=== PATIENT | female | born 1975 | race Caucasian/White ===

== ENCOUNTER → 2017-04-08 12:08 | Outpatient (CLI) | payer MEDICARE, MEDICAID, SELFPAY ==
[2017-04-08 13:33] LABS: AST(SGOT) 18 U/L (15-37); Alanine Aminotransfer ALT/SGPT 24 U/L (13-56); Albumin, Serum 3.8 g/dL (3.2-5.0); Alkaline Phosphatase 76 U/L (45-117); Cholesterol 209 mg/dL (200); High Density Lipoprotein 55 mg/dL; Protein, Total 7.8 g/dL (6.4-8.2); Triglycerides 100 mg/dL; Very Low Density Lipoprotein 20 mg/dL (5-40)
== END ==
PROVIDERS: Family Provider Physician Assistant; PCP Physician Assistant; Visit Provider Internal Medicine Cardiovascular Disease
DX: I10 Essential (primary) hypertension (principal); E78.00 Pure hypercholesterolemia, unspecified; E66.9 Obesity, unspecified; R07.9 Chest pain, unspecified
CPT/HCPCS: 36415; 80061; 80076

== ENCOUNTER → 2017-04-23 20:00 | Outpatient (CLI) | payer MEDICARE, MEDICAID, SELFPAY | PROVIDERS: Family Provider Physician Assistant; PCP Physician Assistant; Visit Provider Internal Medicine Cardiovascular Disease | DX: G47.10 Hypersomnia, unspecified (principal) | CPT/HCPCS: 95810 ==

== ENCOUNTER → 2017-04-24 12:38 | Outpatient (CLI) | payer MEDICARE, MEDICAID, SELFPAY ==
--- NOTE | 2017-04-24 12:40 | ECHOD_ITS ---
Reason For Study: DYSPNEA Procedure This was a 2D Doppler, Color Flow transthoracic echocardiogram. Exam performed in department. Left Ventricle Normal size and thickness. The estimated ejection fraction is 65 %. Normal diastology for age. No regional wall motion abnormalities noted. Right Ventricle Mildly dilated right ventricle. Normal systolic function. Atria Normal left atrium. Normal right atrium. Normal atrial septum. Mitral Valve The mitral valve is structurally normal. No prolapse or stenosis seen. Tricuspid Valve Normal tricuspid valve. Trivial tricuspid valve insufficiency. Right ventricular systolic pressure estimated to be 21 mmHg. Aortic Valve Normal aortic valve. Trisinus/trileaflet aortic valve. Pulmonic Valve Normal pulmonic valve. Trivial pulmonic valve insufficiency. Great Vessels Normal aortic root. Normal arch. Normal inferior vena cava. Inferior vena cava collapse with sniff. Pericardium/Pleural No pericardial effusion. MMode/2D Measurements & Calculations LVIDd: 4.0 cm IVSd: 0.82 cm Ao root diam: 3.0 cm LVIDs: 2.9 cm LVPWd: 0.83 cm LA dimension: 3.4 cm RVDd: 2.9 cm FS: 28.0 % LAV(MOD-bp): 42.1 ml EDV(MOD-sp4): 126.9 ml EDV(MOD-sp2): 92.0 ml LAV(MOD-bp) Indexed: 19.1 ml/m2 ESV(MOD-sp4): 54.1 ml EF(MOD-sp2): 65.2 % LAV(MOD-sp2): 45.0 ml EF(MOD-sp4): 57.3 % LAV(MOD-sp4): 38.2 ml SV(MOD-sp4): 72.8 ml SV(MOD-sp2): 60.0 ml LA A4 area: 15.3 cm2 RA A4 area: 11.0 cm2 Doppler Measurements & Calculations MV E max chaim: 73.2 cm/sec Ao V2 max: 123.0 cm/sec LV V1 max: 117.5 cm/sec MV A max chaim: 62.8 cm/sec Ao max P.1 mmHg LV V1 max P.5 mmHg MV E/A: 1.2 PA V2 max: 135.6 cm/sec Interpretation Summary The estimated ejection fraction is 65 %. Normal diastology for age. Mildly dilated right ventricle. Trivial tricuspid valve insufficiency. Right ventricular systolic pressure estimated to be 21 mmHg. There is no comparison study available. Ordering Physician: Killian Garza Referring Physician: CYNTHIA MCDONALD Performed By: Antonina Vazquez RDCS, RVT
== END ==
PROVIDERS: Family Provider Physician Assistant; PCP Physician Assistant; Visit Provider Internal Medicine Cardiovascular Disease
DX: R06.89 Other abnormalities of breathing (principal)
CPT/HCPCS: 93306

== ENCOUNTER → 2017-05-23 12:07 | Outpatient (CLI) | payer MEDICARE, MEDICAID, SELFPAY ==
--- NOTE | 2017-05-23 12:08 | STE_ITS ---
Reason For Study: Chest Pain, Dyspnea on Exertion Stress Results Protocol: Man Protocol Maximum Predicted HR: 179 bpm Target HR: 152 bpm% Max imum Predicted HR: 85 % DurationHeart Rate Stage (mm:ss) (bpm) BPCom ment Baseline 55 118/72 No Chest Pain Man Protocol Stage I 3:00 11 7 142/70No Chest Pain; Mild Dyspnea Man Protocol Stage II 3:00 13 4 162/76No Chest Pain; Moderate Dyspnea Man Protocol Stage III 1:00 15 3 / No Chest Pain; Moderate Dyspnea Recovery 82 122/80 No Chest Pain Stress Duration: 7:00 mm:ss Maximum Stress HR: 153 bpmM ETS: 10 Baseline Echocardiogram Findings The estimated ejection fraction is 65 %. Stress Echo Wall motion Data Resting WMIntermediate WMStress WM Resting Wall Motion Wall Motion Stress No regional wall motion No regional wall motion abnormalities noted. abnormalities noted. EKG Data Normal intervals are noted. The patient exercised according to the regular Man protocol for a total duration of 7:00. The maximum heart rate attained was 155 beats per minute. This was 86% of maximum predicted heart rate. The patient exercised into stage 3 of the Man protocol. During stress, there were no ST or T wave changes noted to suggest ischemia. No clinical angina was noted. Interpretation Summary The estimated ejection fraction is 65 %. Normal adequate treadmill echocardiogram. Negative for ischemia by EKG and echocardiographic criteria. No anginal symptoms noted. Rare PVCs noted. Appropriate blood pressure response to exercise. Average exercise capacity for age. Test terminated due to dyspnea. Final LVEF of 75%. Ordering Physician: Killian Garza Referring Physician: Killian Garza Performed By: Fernanda Canchola RDCS
== END ==
PROVIDERS: Family Provider Physician Assistant; PCP Physician Assistant; Visit Provider Internal Medicine Cardiovascular Disease
DX: R53.83 Other fatigue (principal); R06.89 Other abnormalities of breathing; G47.10 Hypersomnia, unspecified; R06.09 Other forms of dyspnea; R07.9 Chest pain, unspecified; Z95.818 Presence of other cardiac implants and grafts; E66.9 Obesity, unspecified; E78.00 Pure hypercholesterolemia, unspecified; R55 Syncope and collapse; J45.909 Unspecified asthma, uncomplicated; I10 Essential (primary) hypertension
CPT/HCPCS: 93017; 93350

== ENCOUNTER → 2017-05-26 19:45 | Outpatient (CLI) | payer MEDICARE, MEDICAID, SELFPAY | PROVIDERS: Family Provider Physician Assistant; PCP Physician Assistant; Visit Provider Nurse Practitioner Acute Care | DX: G47.33 Obstructive sleep apnea (adult) (pediatric) (principal) | CPT/HCPCS: 95811 ==

== ENCOUNTER → 2017-06-18 12:35 | Outpatient (CLI) | payer MEDICARE, MEDICAID, SELFPAY ==
--- NOTE | 2017-06-19 08:28 | PFT ---
INTRODUCTION: The patient is a 41-year-old female currently under the care of myself the presents for pulmonary function testing secondary to a diagnosis of dyspnea. Respiratory therapy reports good patient effort. Bronchodilators were used during testing. INTERPRETATION: Forced expiration spirometry demonstrates no evidence of a large airways obstructive ventilatory defect. There was no significant response to aerosolized bronchodilators, based upon strict ATS criteria. Spirograms are of good quality and plateau normally. The respiratory flow volume loop appears normal. Body plethysmography was performed and reveals a decreased TLC to 5.04 L, 86% predicted, indicative of a mild restrictive ventilatory defect. The remainder of the lung volumes were symmetrically reduced. Diffusing capacity by single breath CO is within normal limits at 81% of predicted. IMPRESSION: These pulmonary function studies demonstrate the presence of a mild restrictive ventilatory defect. There are no previous pulmonary function studies available for comparison.
== END ==
PROVIDERS: Family Provider Physician Assistant; PCP Physician Assistant; Visit Provider Nurse Practitioner Acute Care
DX: R06.09 Other forms of dyspnea (principal)
CPT/HCPCS: 94060; 94726; 94729

== ENCOUNTER → 2017-10-09 10:45 | Outpatient (CLI) | payer MEDICARE, MEDICAID, SELFPAY ==
[2017-10-09 11:16] LABS: Hematocrit 38.2 % (37-47); Hemoglobin 12.7 g/dl (12.0-15.0); Mean Corp Hgb Conc 33.2 g/gl (32-36); Mean Corpuscular Hgb 29.1 pg (27.0-32.0); Mean Corpuscular Volume 87.6 fL (81-99); Mean Platelet Vol. 10.7 fl (6.2-12.0); Platelet Count 236 K/mm3 (150-450); RBC Distribution Width CV 13.6 % (11.6-14.6); RBC Distribution Width SD 42.8 fl (35.1-43.9); Red Blood Count 4.36 M/mm3 (4.2-5.4); White Blood Count 6.5 K/mm3 (4.4-11.0)
[2017-10-09 11:17] LABS: Scan Indicated on CBC? Y/N NO
[2017-10-09 11:40] LABS: Anion Gap 7 (5-15); BUN 10 mg/dL (7-18); BUN/Creat Ratio 9.3 RATIO (10-20); Calcium,Total 8.9 mg/dL (8.5-10.1); Chloride 107 mmol/L (98-107); Creatinine, Serum 1.07 mg/dL (0.55-1.02); EST Glomerular Filtration Rate 60 mL/min (>60); Est Glom Filt Rate - Afr Amer 72 mL/min (>60); Glucose 99 mg/dL (74-106); Potassium 4.2 mmol/L (3.5-5.1); Sodium Level 142 mmol/L (136-145)
[2017-10-09 11:42] LABS: AST(SGOT) 15 U/L (15-37); Alanine Aminotransfer ALT/SGPT 18 U/L (13-56); Albumin, Serum 3.9 g/dL (3.2-5.0); Alkaline Phosphatase 64 U/L (45-117); Bilirubin, Direct 0.09 mg/dL (0.00-0.30); Cholesterol 214 mg/dL (200); Globulin 4.1 g/dL (2.2-4.2); High Density Lipoprotein 46 mg/dL; Triglycerides 115 mg/dL; Very Low Density Lipoprotein 23 mg/dL (5-40)
== END ==
PROVIDERS: Internal Medicine Cardiovascular Disease; Family Provider Physician Assistant; PCP Physician Assistant; Visit Provider Physician Assistant Medical
DX: R06.09 Other forms of dyspnea (principal); I10 Essential (primary) hypertension; E78.00 Pure hypercholesterolemia, unspecified; R55 Syncope and collapse; R07.9 Chest pain, unspecified; G47.33 Obstructive sleep apnea (adult) (pediatric); Z95.818 Presence of other cardiac implants and grafts
CPT/HCPCS: 36415; 80048; 80061; 80076; 85027

== ENCOUNTER 2017-10-24 09:16 | Day surgery (SDC) | payer MEDICARE, MEDICAID, SELFPAY ==
[2017-10-23 08:16] VITALS: BMI 36.0
--- NOTE | 2017-10-24 10:46 | CL.IE_ITS ---
Patient: SKY MUSA Study Date: 10/24/2017 Performing: Raciel Perez MD : 1975 Age: 42 Gender: female PROCEDURES PERFORMED [id number] OF LOOP RECORDER INDICATIONS End-of-life indicator PROCEDURE DETAILS The patient was brought to the Catheterization Lab in the postabsorptive nonsedated state. Informed consent was obtained prior to the procedure. Incision was made to the left subclavicular area. Steri- strips applied to left subclavicular incision. The patient tolerated the procedure well. Estimated Blood Loss: < 10 mls IMPLANTED / EX-PLANTED DEVICES DEVICE PARAMETERS CONCLUSIONS / RECOMMENDATIONS Device Conclusions: successful removal of loop recorder Device Recommendations: Follow up with Primary Care Physician PROCEDURE MEDICATIONS Versed 1 mg IV Oxygen: 2 L/min via nasal cannula Signed By Raciel Perez MD On 10/24/2017 10:50:09 Signed By Raciel Perez MD On 10/24/2017 10:46:19 Raciel Perez MD
== END 2017-10-24 11:45 | disposition home or self-care (01) ==
PROVIDERS: Family Provider Physician Assistant; PCP Physician Assistant; Visit Provider Internal Medicine Cardiovascular Disease
DX: Z45.09 Encounter for adjustment and management of other cardiac device (principal); R07.9 Chest pain, unspecified; I10 Essential (primary) hypertension; R55 Syncope and collapse; E78.00 Pure hypercholesterolemia, unspecified; E66.9 Obesity, unspecified; Z68.36 Body mass index [BMI] 36.0-36.9, adult; J45.909 Unspecified asthma, uncomplicated; F32.9 Major depressive disorder, single episode, unspecified; K21.9 Gastro-esophageal reflux disease without esophagitis; G40.909 Epilepsy, unspecified, not intractable, without status epilepticus; Z79.899 Other long term (current) drug therapy
CPT/HCPCS: 33284; 99152; 99153; A4216

== ENCOUNTER → 2018-03-02 14:21 | Outpatient (CLI) | payer MEDICARE, MEDICAID, SELFPAY ==
[2018-02-23 13:12] VITALS: BMI 35.4
[2018-03-02 16:07] LABS: AST(SGOT) 20 U/L (15-37); Alanine Aminotransfer ALT/SGPT 24 U/L (13-56); Albumin, Serum 3.9 g/dL (3.2-5.0); Alkaline Phosphatase 57 U/L (45-117); Bilirubin, Direct 0.12 mg/dL (0.00-0.30); Cholesterol 166 mg/dL (200); Globulin 3.6 g/dL (2.2-4.2); High Density Lipoprotein 60 mg/dL; Protein, Total 7.5 g/dL (6.4-8.2); Triglycerides 100 mg/dL; Very Low Density Lipoprotein 20 mg/dL (5-40)
--- OUTSIDE RECORDS SUMMARY | 2018-05-05 02:35 | XMS RPT_ITS ---
:1975 Author Organization OHIP Support Name Relationship Address Phone D Unavailable Unavailable Unavailable SOURS, SACHI Unavailable [address] + [place] [address] D Unavailable Unavailable Unavailable SOURS, SACHI Unavailable [address] + [place] [address] D Unavailable Unavailable Unavailable SOURS, SACHI Unavailable [address] + [place] [address] D Unavailable Unavailable Unavailable SOURS, SACHI Unavailable [address] + [place] [address] D Unavailable Unavailable Unavailable SOURS, SACHI Unavailable [address] + [place] [address] D Unavailable Unavailable Unavailable SOURS, SACHI Unavailable [address] + [place] [address] D Unavailable Unavailable Unavailable SOURS, SACHI Unavailable [address] + [place] [address] D Unavailable Unavailable Unavailable SOURS, SACHI Unavailable [address] + [place] [address] D Unavailable Unavailable Unavailable SOURS, SACHI Unavailable [address] + [place] [address] D Unavailable Unavailable Unavailable SOURS, SACHI Unavailable [address] + [place] [address] D Unavailable Unavailable Unavailable SOURS, SACHI Unavailable [address] + [place] [address] D Unavailable Unavailable Unavailable SOURS, SACHI Unavailable [address] + [place] [address] D Unavailable Unavailable Unavailable SOURS, SACHI Unavailable [address] + [place] [address] D Unavailable Unavailable Unavailable SOURS, SACHI Unavailable [address] + [place] [address] D Unavailable Unavailable Unavailable SOURS, SACHI Unavailable [address] + [place] [address] D Unavailable Unavailable Unavailable SOURS, SACHI Unavailable [address] + [facility] [place] [place] [place] [address] D Unavailable Unavailable Unavailable SOURS, SACHI Unavailable [address] + [place] [address] D Unavailable Unavailable Unavailable SOURS, SACHI Unavailable [address] + [place] [address] D Unavailable Unavailable Unavailable SOURS, SACHI Unavailable [address] + [place] [address] D Unavailable Unavailable Unavailable SOURS, SACHI Unavailable [address] + [place] [address] D Unavailable Unavailable Unavailable SOURS, SACHI Unavailable [address] + [place] [address] D Unavailable Unavailable Unavailable SOURS, SACHI Unavailable [address] + [place] [address] D Unavailable Unavailable Unavailable SOURS, SACHI Unavailable [address] + [place] [address] SOURS, SACHI Unavailable [address] + [place] [address] UE Unavailable Unavailable Unavailable SOURS, SACHI Unavailable [address] + [place] [address] UE Unavailable Unavailable Unavailable Care Team Providers Name Role Phone Jonel Hess Admitting Unavailable Jonel Hess Attending Unavailable Rodrigo Foster Primary Care Unavailable Elicia King Attending Unavailable Killian Garza Attending Unavailable Iron Ruiz Referring Unavailable Killian Garza Attending Unavailable Killian Garza Referring Unavailable RuizIron rodriguez Primary Care Unavailable Dionna Carter Attending Unavailable Iron Ruiz Referring Unavailable Ruiz, M Cynthia Primary Care Unavailable Killian Garza Attending Unavailable Killian Garza Referring Unavailable Ruiz, M Cynthia Primary Care Unavailable Killian Garza Attending Unavailable Killian Garza Referring Unavailable Ruiz, M Cynthia Primary Care Unavailable Killian Garza Attending Unavailable Killian Garza Referring Unavailable Ruiz, M Cynthia Primary Care Unavailable Rosie Gusman Attending Unavailable Ruiz, M Cynthia Referring Unavailable Rosie Gusman Attending Unavailable Ruiz, M Cynthia Primary Care Unavailable Killian Garza Attending Unavailable Greg, Killian Referring Unavailable Gusman, Rosie Attending Unavailable Gusman, Rosie Referring Unavailable Ruiz, M Cynthia Primary Care Unavailable Greg, Killian Attending Unavailable Garza, Killian Referring Unavailable Gusman, Rosie Attending Unavailable Ruiz, M Cynthia Referring Unavailable Ruiz, M Cynthia Primary Care Unavailable Daniel Young D.O. Attending Unavailable Gusman, Rosie Referring Unavailable Man Joy Attending Unavailable Ruiz, M Cynthia Referring Unavailable Ruiz, M Cynthia Primary Care Unavailable Dionna Carter Attending Unavailable Ruiz, M Cynthia Referring Unavailable Ruiz, M Cynthia Primary Care Unavailable GoldenJyoti Attending Unavailable Ruiz, M Cynthia Referring Unavailable Ruiz, M Cynthia Primary Care Unavailable GoldenJyoti murray M Attending Unavailable GoldenJyoti M Referring Unavailable Ruiz, M Cynthia Primary Care Unavailable Chris, Ivesdale Attending Unavailable Chris, Ivesdale Referring Unavailable Ruiz, M Cynthia Primary Care Unavailable Elicia King Attending Unavailable Chris, Ivesdale Attending Unavailable Chris, Ivesdale Referring Unavailable Gusman, Rosie Attending Unavailable Ruiz, M Cynthia Referring Unavailable Gusman, Rosie Attending Unavailable Ruiz, M Cynthia Referring Unavailable Garza, Killian Attending Unavailable Ruiz, M Cynthia Referring Unavailable Garza, Killian Attending Unavailable Garza, Killian Referring Unavailable Ruiz, M Cynthia Primary Care Unavailable RUIZ, Iron MARIE (PA-C) Attending Unavailable RUIZIron (PA-C) Referring Unavailable RUIZ, Iron MARIE (PA-C) Referring Unavailable LATASHA KOROMA (PT) Attending Unavailable RUIZ, Iron MARIE (PA-C) Referring Unavailable LATASHA KOROMA (PT) Attending Unavailable RUIZ, Iron MARIE (PA-C) Referring Unavailable RODRIGO LOPEZ Referring Unavailable RUIZ, Iron MARIE (PA-C) Referring Unavailable JERROD MORSE Attending Unavailable RUIZ, Iron MARIE (PA-C) Attending Unavailable RUIZ, Iron MARIE (PA-C) Referring Unavailable RONALD MORSEISTIN Attending Unavailable PROBLEMS PROBLEMS DATE TYPE CONDITION / CODE ATTENDING STATUS SOURCE 02/23/2018 Unknown R07.9 - Chest pain, Killian Garza Active [facility] unspecified / Community R07.9(ICD-10) Hospital Repository 02/23/2018 Unknown E66.9 - Obesity, Killian Garza Active [facility] unspecified / Community E66.9(ICD-10) Hospital Repository 02/23/2018 Unknown E78.00 - Pure GarzaKillian Active [facility] hypercholesterolemi Community a, unspecified / Hospital E78.00(ICD-10) Repository 02/23/2018 Unknown G47.33 - Garza Killian Active [facility] Obstructive sleep Community apnea (adult) Hospital (pediatric) / Repository G47.33(ICD-10) 01/07/2018 Active Encounter for NA Active [facility] screening mammogram [facility] for malignant Repository neoplasm of breast / Z12.31(ICD-10) 11/20/2017 Unknown R55 - Syncope and Chris, Raciel Active [facility] collapse / Community R55(ICD-10) Hospital Repository 10/09/2017 Unknown R06.09 - Other Chantel, Active [facility] forms of dyspnea / [facility] R06.09(ICD-10) Hospital Repository 10/09/2017 Unknown I10 - Essential Golden, Active [facility] (primary) [facility] hypertension / Hospital I10(ICD-10) Repository 10/10/2017 Unknown Z95.818 - Presence Emma Dionna Active [facility] of other cardiac Community implants and grafts Hospital / Z95.818(ICD-10) Repository 04/23/2017 Unknown G47.10 - Killian Garza Active [facility] Hypersomnia, Community unspecified / Hospital G47.10(ICD-10) Repository 04/08/2017 Unknown R06.89 - Other Killian Garza Active [facility] abnormalities of Community breathing / Hospital R06.89(ICD-10) Repository 04/08/2017 Unknown R53.83 - Other Killian Garza Active [facility] fatigue / Community R53.83(ICD-10) Hospital Repository 04/08/2017 Unknown R40.0 - Somnolence Killian Garza Active [facility] / R40.0(ICD-10) Community Hospital Repository 04/08/2017 Unknown J45.909 - Killian Garza Active [facility] Unspecified asthma, Community uncomplicated / Hospital J45.909(ICD-10) Repository 03/18/2017 Active Chest pain, NA Active [facility] unspecified / [facility] R07.9(ICD-10) Repository 04/08/2017 Active Essential (primary) NA Active [facility] hypertension / [facility] I10(ICD-10) Repository 08/05/2016 Active Gastro-esophageal NA Active [facility] reflux disease [facility] without esophagitis Repository / K21.9(ICD-10) 03/10/2017 Active Unknown / Iron RUIZ Active [facility] UNK(Unknown) CYNTHIA (PA-C) [facility] Repository PROCEDURES PROCEDURES No Procedure Records FoundRESULTS RESULTS PROGRESS Observed: 03/05/2018 Status: COMPLETED Source: [place] 8:36 AM [facility] REPOSITORY HNO ID: [id number] Author: Jerrod Morse Service: (none) Author Type: Physician Type: Progress Notes Filed: 03/05/2018 8:54 AM Note Text: Neurology Follow-up Visit ASSESSMENT: 42 year old female with history significant for asthma, anxiety, concussion, with post-traumatic migraines. Currently reporting 7-10 migraines per month but does not want additional preventive therapy at this time. Briefly discussed Aimovig and she does not like needles. Will continue current regimen. PLAN: --->?Acute Treatment:? -Imitrex, Zofran. ?? --->?Preventive Treatment:? -continue Neurontin, propranolol, Zonegran ? --->?Follow-up: 6 months Last Visit: 04/22/2017 Interval Hx: Headaches have been ok lately. This month so far has had 3 migraines. Averages 7-10 headaches per month. Imitrex is effective. Doesn't want to add anything. with more heart troubles. Has multiple stents. NGHIA, using CPAP at night. Needs to lose weight because her lungs are on the small side. No syncopal episodes. Loop recorder has been removed, battery . PMH: PAST MEDICAL HISTORY Diagnosis Date - Asthma - Depression Dez in [place] Dr. Clark, Counselor Adina - Headaches due to old head injury - NGHIA (obstructive sleep apnea) 05/12/2017 - Seizures ([facility]) Neurologist Dr. 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 Social History Main Topics Smoking status: Former Smoker Packs/day: 0.00 Years: 2.00 Smokeless tobacco: Never Used Comment: A couple cigarettes a day for two years Alcohol use: No Drug use: No Sexual activity: Yes Partners with: Male control/protection: None FMH: FAMILY HISTORY Problem Relation Age of Onset - other (lupus [Other]) Maternal Uncle - other (unknown [Other]) Father - other (htn [Other]) Mother - other (hyperlipidemia [Other]) Mother - Cancer Maternal Aunt HEEL STIFFENER - other (lung cancer [Other]) Maternal Uncle - Coronary Artery Disease Maternal Grandmother - Coronary Artery Disease Maternal Grandfather - Coronary Artery Disease Paternal Grandmother - Coronary Artery Disease Paternal Grandfather - Diabetes Brother - Hypertension Brother - Cancer Unknown - Cancer Maternal Uncle bone MEDS: Current Outpatient Prescriptions: Promethazine-DM (PHENERGAN-DM) 6.25-15 mg/5 mL syrup Take 5 mL by mouth four times daily as needed. busPIRone (BUSPAR) 10 mg tablet Take 1 tablet by mouth three times daily. fluticasone (FLOVENT HFA) 220 mcg/actuation inhaler Inhale 1 Puff as instructed twice daily. omeprazole (PRILOSEC) 20 mg capsule Take 2 capsules by mouth daily before breakfast. 1/2 hr before meal. propranolol ER (INDERAL LA) 60 mg 24 hr capsule Take 1 capsule by mouth once daily. gabapentin (NEURONTIN) 300 mg capsule Take 3 capsules by mouth twice daily. sertraline (ZOLOFT) 100 mg tablet Take 1 tablet by mouth once daily. cloNIDine HCl (CATAPRES) 0.1 mg tablet Take 1 tablet by mouth twice daily. For headaches albuterol HFA (VENTOLIN HFA) 90 mcg/actuation inhaler Inhale 2 Puffs as instructed every 4 hours as needed. SUMAtriptan (IMITREX) 100 mg tablet Take 1 tablet by mouth as needed for Migraine Headache (see administration instructions). ondansetron (ZOFRAN) 8 mg tablet Take 1 tablet by mouth every 8 hours as needed for Nausea/Vomiting. zonisamide (ZONEGRAN) 50 mg capsule TAKE 1 CAPSULE IN THE MORNING AND 2 CAPSULES AT BEDTIME No current facility-administered medications for this visit. REVIEW OF SYSTEMS: Review of system : unchanged from the previous visit or as per HPI (sleep patterns, mood, energy, appetite, stress, exercising). Physical Examination: BP 143/80 (BP Site: Left Arm, BP Position: Sitting, BP Cuff Size: Large Adult) Pulse 90 Ht 172.7 cm (5' 8) Wt 107 kg (236 lb) LMP 11/26/2012 SpO2 100% BMI 35.88 kg/m? GEN: Alert. NAD. Normal affect. Cooperative. HEENT: No rhinorrhea, lacrimation or conjunctival injection. Normal mucosa. NECK/BACK: Supple EXT: No cyanosis. No edema. No erythema. NEUROLOGICAL: MENTAL STATUS: A+O x 3. Attentive. Thought process and content unremarkable. Follows commands appropriately. Speech fluent. CN: II: PERRLA. III, IV, : EOMI. No ptosis present. VII: Face symmetric. VIII: No nystagmus. XI: Symmetric shoulder shrug. XII: Tongue midline with symmetric movements. MOTOR: Normal tone. Normal bulk. Motor strength 5/5 throughout. CEREBELLAR: No ataxia or nystagmus. GAIT: Stable primary gait. Jerrod Morse M.D. [facility] [place] Department [facility] cc: SELF M Cynthia Ruiz PA-C [address] [facility] [place] [address] CNOV Observed: 03/05/2018 Status: COMPLETED Source: [place] 8:10 AM [facility] REPOSITORY Office Visit (NEURMM) SKY MUSA ([id number]) 1975 F Date Time Provider Department 03/05/18 8:10 AM JERROD MORSE During your visit today, we recorded the following information about you: Pulse Blood pressure Weight Height 90/minute 143/80 107 kg 1.727 m Jerrod Morse MD 03/05/2018 8:54 AM Signed Neurology Follow-up Visit ASSESSMENT: 42 year old female with history significant for asthma, anxiety, concussion, with post-traumatic migraines. Currently reporting 7-10 migraines per month but does not want additional preventive therapy at this time. Briefly discussed Aimovig and she does not like needles. Will continue current regimen. PLAN: --->?Acute Treatment:? -Imitrex, Zofran. ?? --->?Preventive Treatment:? -continue Neurontin, propranolol, Zonegran ? --->?Follow-up: 6 months Last Visit: 04/22/2017 Interval Hx: Headaches have been ok lately. This month so far has had 3 migraines. Averages 7-10 headaches per month. Imitrex is effective. Doesn't want to add anything. with more heart troubles. Has multiple stents. NGHIA, using CPAP at night. Needs to lose weight because her lungs are on the small side. No syncopal episodes. Loop recorder has been removed, battery . PMH: PAST MEDICAL HISTORY Diagnosis Date - Asthma - Depression Dez in [place] Dr. Clark, Counselor Adina - Headaches due to old head injury - NGHIA (obstructive sleep apnea) 05/12/2017 - Seizures ([facility]) Neurologist Dr. 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 Social History Main Topics Smoking status: Former Smoker Packs/day: 0.00 Years: 2.00 Smokeless tobacco: Never Used Comment: A couple cigarettes a day for two years Alcohol use: No Drug use: No Sexual activity: Yes Partners with: Male control/protection: None FMH: FAMILY HISTORY Problem Relation Age of Onset - other (lupus [Other]) Maternal Uncle - other (unknown [Other]) Father - other (htn [Other]) Mother - other (hyperlipidemia [Other]) Mother - Cancer Maternal Aunt HEEL STIFFENER - other (lung cancer [Other]) Maternal Uncle - Coronary Artery Disease Maternal Grandmother - Coronary Artery Disease Maternal Grandfather - Coronary Artery Disease Paternal Grandmother - Coronary Artery Disease Paternal Grandfather - Diabetes Brother - Hypertension Brother - Cancer Unknown - Cancer Maternal Uncle bone MEDS: Current Outpatient Prescriptions: Promethazine-DM (PHENERGAN-DM) 6.25-15 mg/5 mL syrup Take 5 mL by mouth four times daily as needed. busPIRone (BUSPAR) 10 mg tablet Take 1 tablet by mouth three times daily. fluticasone (FLOVENT HFA) 220 mcg/actuation inhaler Inhale 1 Puff as instructed twice daily. omeprazole (PRILOSEC) 20 mg capsule Take 2 capsules by mouth daily before breakfast. 1/2 hr before meal. propranolol ER (INDERAL LA) 60 mg 24 hr capsule Take 1 capsule by mouth once daily. gabapentin (NEURONTIN) 300 mg capsule Take 3 capsules by mouth twice daily. sertraline (ZOLOFT) 100 mg tablet Take 1 tablet by mouth once daily. cloNIDine HCl (CATAPRES) 0.1 mg tablet Take 1 tablet by mouth twice daily. For headaches albuterol HFA (VENTOLIN HFA) 90 mcg/actuation inhaler Inhale 2 Puffs as instructed every 4 hours as needed. SUMAtriptan (IMITREX) 100 mg tablet Take 1 tablet by mouth as needed for Migraine Headache (see administration instructions). ondansetron (ZOFRAN) 8 mg tablet Take 1 tablet by mouth every 8 hours as needed for Nausea/Vomiting. zonisamide (ZONEGRAN) 50 mg capsule TAKE 1 CAPSULE IN THE MORNING AND 2 CAPSULES AT BEDTIME No current facility-administered medications for this visit. REVIEW OF SYSTEMS: Review of system : unchanged from the previous visit or as per HPI (sleep patterns, mood, energy, appetite, stress, exercising). Physical Examination: BP 143/80 (BP Site: Left Arm, BP Position: Sitting, BP Cuff Size: Large Adult) Pulse 90 Ht 172.7 cm (5' 8) Wt 107 kg (236 lb) LMP 11/26/2012 SpO2 100% BMI 35.88 kg/m? GEN: Alert. NAD. Normal affect. Cooperative. HEENT: No rhinorrhea, lacrimation or conjunctival injection. Normal mucosa. NECK/BACK: Supple EXT: No cyanosis. No edema. No erythema. NEUROLOGICAL: MENTAL STATUS: A+O x 3. Attentive. Thought process and content unremarkable. Follows commands appropriately. Speech fluent. CN: II: PERRLA. III, IV, : EOMI. No ptosis present. VII: Face symmetric. VIII: No nystagmus. XI: Symmetric shoulder shrug. XII: Tongue midline with symmetric movements. MOTOR: Normal tone. Normal bulk. Motor strength 5/5 throughout. CEREBELLAR: No ataxia or nystagmus. GAIT: Stable primary gait. Jerrod Morse M.D. [facility] [place] Department of Neu[facility] cc: SELF M Cynthia Ruiz PA-C [address] [place] [address] Referring Provider: SELF [[id number]] Allergies As of Date: 03/05/2018 Noted Allergy Reaction LATEX 06/25/2012 2 - Rash 7 - Swelling Comments: Latex condoms, caused vaginal symptoms only PENICILLINS 06/11/2012 7 - Swelling Date Reviewed: 03/05/2018 Reviewed by: Jerrod Morse - Fully Assessed Reason for Visit: Follow Up [171] Primary Visit Diagnosis:Migraine with aura and without status migrainosus, not intractable [G43.109] Prescriptions as of 03/05/2018 Sig: PROMETHAZINE-DM 6.25 MG-15 MG* Take 5 mL by mouth four times* BUSPIRONE 10 MG TABLET Take 1 tablet by mouth three * FLUTICASONE 220 MCG/ACTUATION* Inhale 1 Puff as instructed t* OMEPRAZOLE 20 MG CAPSULE,NEDA* Take 2 capsules by mouth amy* PROPRANOLOL ER 60 MG CAPSULE,* Take 1 capsule by mouth once * GABAPENTIN 300 MG CAPSULE Take 3 capsules by mouth twic* SERTRALINE 100 MG TABLET Take 1 tablet by mouth once d* CLONIDINE HCL 0.1 MG TABLET Take 1 tablet by mouth twice * ALBUTEROL SULFATE HFA 90 MCG/* Inhale 2 Puffs as instructed * SUMATRIPTAN 100 MG TABLET Take 1 tablet by mouth as nee* ONDANSETRON HCL 8 MG TABLET Take 1 tablet by mouth every * ZONISAMIDE 50 MG CAPSULE TAKE 1 CAPSULE IN THE MORNING* Problem List As Of Date 03/05/2018 Noted Resolved Asthma [J45.909] INVALID FOR* Menorrhagia [N92.0] INVALID FOR* Dysmenorrhea [N94.6] INVALID FOR* Fibroid [D21.9] INVALID FOR* Vasovagal syncope [R55] INVALID FOR* More... Hypercholesterolemia [E78.00] INVALID FOR* Status post placement of implantable loop recor*INVALID FOR*10/28/2017 More... Chronic bilateral low back pain without sciatic*INVALID FOR* Chronic pain of left ankle [M25.572, G89.29] INVALID FOR* Gastroesophageal reflux disease [K21.9] INVALID FOR* Adjustment reaction with anxiety and depression*INVALID FOR* Migraine without aura and without status migrai*INVALID FOR* More... 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 More... Vitamin D deficiency [E55.9] Lateral epicondylitis of left elbow [M77.12] INVALID FOR* Chest pain [R07.9] INVALID FOR* More... Abnormal echocardiogram [R93.1] INVALID FOR* More... NGHIA (obstructive sleep apnea) [G47.33] INVALID FOR* More... Moderate persistent asthma with (acute) exacerb*INVALID FOR* More... Disposition: Return in about 6 months (around 09/02/2018). Follow-up and Disposition History Recorded Encounter Status:Closed by JERROD MORSE MD on 03/05/18 LIVER PROFILE Collected: 03/02/2018 Status: F Source: [place] 2:[address] [facility] REPOSITORY TYPE CODE TESTS RESULT OUT OF RANGE REFERENCE UNITS LAB L501.1500 6.4-8.2 g/dL Normal T PROT 7.5 LAB L501.1800 3.2-5.0 g/dL Normal ALB 3.9 LAB L501.1950 2.2-4.2 g/dL Normal GLOB 3.6 LAB L501.4100 15-37 U/L Normal AST 20 LAB L501.4305 45-117 U/L Normal ALK P 57 LAB L501.4405 13-56 U/L Normal ALT 24 LAB L501.4600 0.20-1.00 mg/dL Normal T BILI 0.50 LAB L501.4700 0.00-0.30 mg/dL Normal D BILI 0.12 Performed By: #### L500.3400, L500.4100 #### [facility] [address] [place], [address] LIPID PROFILE Collected: 03/02/2018 Status: F Source: [place] 2:[address] [facility] REPOSITORY TYPE CODE TESTS RESULT OUT OF RANGE REFERENCE UNITS LAB L501.4900 200 mg/dL Normal CHOL 166 Result Comment: <200 mg/dL Desirable 200-240 mg/dL Borderline >240 mg/dL High Risk LAB L501.5000 mg/dL Normal TRIG 100 Result Comment: The drugs N-Acetylcysteine and Metamizole may falsely depress this assay. Serum Triglycerides Reference Interval Normal <150 mg/dL Borderline high 150 - 199 mg/dL High 200 - 499 mg/dL Very High > or = 500 mg/dL LAB L501.6400 mg/dL Normal HDL 60 Result Comment: The drugs N-Acetylcysteine and Metamizole may falsely depress this assay. Reference Range HDL <40 mg/dL Low HDL Cholesterol HDL >or= 60 mg/dL High HDL Cholesterol LAB L501.6500 0-130 mg/dL Normal LDL 86 LAB L501.6600 5-40 mg/dL Normal VLDL 20 Performed By: #### L500.3400, L500.4100 #### [facility] [address] [place], [address] CARDIOLOGY VISIT Observed: 02/23/2018 Status: F Source: [place] REPORT 1:[address] [facility] REPOSITORY [facility] [address] [place] [address] OFFICE VISIT Date of Service: 02/23/18 MR#: [id number] Acct: [id number] Name: SKY MUSA Rep #: [id number] : 1975 Provider: Killian Garza MD Age/Sex: 42/F Location: [facility] Status: Signed HPI HPI Chief Complaint: Routine f/u Details: SKY MUSA, is a 42 F who who originally presented to the office for evaluation of atypical chest pain. She is the of 1 of my patients. She has a history of hypercholesterolemia, hypertension, nondiabetic, previous smoker who quit around 4 years ago after one half pack per day for 5 years, no alcohol, no illicit drug use. She does have a positive family history of coronary disease in her father who is still alive who had bypass surgery at age 52, mother age 53 who has some kind of heart problems, and a brother with a hole in his heart Patient struggled with multiple episodes of syncope requiring a loop recorder placement at [facility] about 4 years ago. It appears the patient has vasovagal syncope and is treated with antimigraine therapy. About 6 months ago, patient has noted atypical, sharp, pleuritic type chest pain which worsened on 03/10/17 which woke her up from a sound sleep. She sought medical attention at [facility] an EKG was performed which showed normal sinus rhythm, normal axis, normal intervals no evidence of previous myocardial infarction or acute changes. She now has chest pain on and off on a regular basis, with associated diaphoresis and shortness of breath. Her pain appears to be worse in the recumbent position, and worse with eating fatty foods. She apparently underwent an ultrasound approximately several ago which was reportedly negative per the patient for gallstones. In addition the patient is unaware whether she snores, and her falls asleep before she does. She does wake up tired, has daytime somnolence, and takes naps during the day. In addition the patient complained of worsening dyspnea on exertion, chest pain with exertion and shortness of breath. Patient is not on baby aspirin. She has not had her loop recorder interrogated in some time. 04/24/17 she underwent a 2D echo with Doppler which demonstrated an EF of 65%, and normal RVSP. In addition she underwent a stress echocardiogram on 05/23/17 which was found to be normal at a good workload. She underwent a sleep study on 04/23/17 which was found to be abnormal and had CPAP fitting on 05/26/17. PFTs were done on 06/19/17 which showed mild restrictive ventilatory defect. Since her last visit, the patient is doing rather well. She is exercising on a regular basis and losing weight. She is compliant with her medications as well as her CPAP and she feels much better. She has recently had a lower respiratory infection/bronchitis, and is recovering from that. In our office today her blood pressure is 120/60, and pulse is 68 and regular. Physical exam is as below. Lipids as of 08/02/16 showed LDL of 170 and HDL of 52. Repeat lipids are pending. EKG is as above. Intake Vital Signs02/23/18 Height 5 ft 8 in 02/23/18 Weight: 233 lb 02/23/18 Body Mass Index (BMI) 35.4 02/23/18 Blood Pressure 120/60 Intake Visit Reasons: 6 M FU Allergies latex Allergy (Verified 02/23/18 13:20) Rash Penicillins Allergy (Verified 02/23/18 13:20) Rash Medications Albuterol Inhaler [Ventolin Hfa] 1 - 2 puff INHALATION Q4H PRN PRN 12/15/12 [History Confirmed 02/17/18] busPIRone [Buspar] 5 mg PO BID 12/15/12 [History Confirmed 02/17/18] clonidine HCl 0.1 mg tablet 0.1 mg PO BID PRN 04/07/17 [History Confirmed 02/17/18] omeprazole 20 mg capsule,delayed release 20 mg PO QDAY 04/07/17 [History Confirmed 02/17/18] sertraline 100 mg tablet 100 mg PO DAILY 30 Days 04/07/17 [History Confirmed 02/17/18] melatonin 3 mg tablet 3 mg PO HS PRN 10/09/17 [History Confirmed 02/17/18] propranolol ER 120 mg capsule,24 hr,extended release 120 mg PO DAILY #90 cap 02/23/18 [Rx Confirmed 02/23/18] simvastatin 40 mg tablet 40 mg PO QPM #90 tab 02/23/18 [Rx Confirmed 02/23/18] [facility] Medical History Obesity (BMI 30-39.9) (Chronic) Hypercholesteremia (Chronic) Vasovagal syncope (Chronic) Asthma (Chronic) Hypertension (Chronic) Back pain (Chronic) Depression (Chronic) GERD (gastroesophageal reflux disease) (Chronic) 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) History of hysterectomy (Chronic) Seizure (Chronic) Status post placement of implantable loop recorder (Resolved 02/13/14) Surgical History History of (Chronic) ORIF right ankle (Chronic) loop recorder explanted (Resolved 10/24/17) Family History Mother Hypertension Brother Hypertension Diabetes Grandfather CAD (coronary artery disease) Grandmother CAD (coronary artery disease) Social History Smoking Status: Never smoker second hand exposure: Yes substance use type: does not use ROS Const Const: Negative for fatigue, weakness, body ache, fever(s), headache(s), chills, frequent falls, night sweats, daytime sleepiness, difficulty sleeping, excessive sweating, weight gain, weight loss, increased appetite, poor appetite, anorexia or other Eyes Eyes: Negative for blind spots, loss of peripheral vision, transient loss of vision, blurry vision, change in vision, double vision, floaters, tunnel vision or other ENT ENT: Negative for headache(s), dizziness, hearing loss, tinnitus, Nosebleed/epistaxis, balance problems, post nasal drip, lip swelling, tongue swelling, bleeding gums, hoarseness, neck pain, dry mouth or other Cardio Chest Pain: No Resp Respiratory: Negative for SOB with activity, SOB at rest, SOB orthopnea\SOB lying down, Coughing up blood/hemoptysis, chest congestion, pain on inspiration, snoring, stridor, wheezing, crackles, paroxysmal nocturnal dyspnea or other GI GI: Negative nausea, vomiting, heartburn, constipation, belching, bloating, cramping, vomiting blood/hematemesis, bright, red blood in stools, black,tarry stools, loose stools, Difficulty Swallowing or other : Negative for hematuria, frequent nighttime urination/ nocturia, erectile dysfunction or abnormal vaginal bleeding Musc Musc: Negative for balance problems, muscle aches/ myalgia, muscle weakness or joint pain Skin Skin: Negative redness, non-healing lesions, rash, unusual bruising, skin ulcer, wounds, jaundice or other Neuro Neuro: Negative for weakness, headache(s), frequent falls, blurry vision, double vision, dizziness, lightheadedness, near syncope, syncope, orthostatic symptoms, confusion, memory loss, restless legs, vertigo, seizures, lack of coordination or other Zack Hematologic/Lymphatic: Negative for easy bleeding, easy bruising, enlarged lymph nodes or other Endo Endo: Negative for fatigue, excessive sweating, cold intolerance, heat intolerance, flushing, increased thirst/drinking, increased hunger, hair loss, hair growth or other Psych Psych: Negative for anxiety, depression, thoughts of harming anyone, thoughts of harming yourself, visual hallucinations, panic attacks or audible hallucinations Allergy Allergy/Immunology: Negative for lip swelling, Negative for tongue swelling, Negative for rash, Negative for throat swelling, Negative for hives Cardiology Exam Const Appearance: cooperative, healthy appearing and no acute distress Nutritional Appearance: well nourished Orientation: alert, oriented x3 and oriented to person Head Head: normal to inspection, atraumatic and normocephalic Nose: external nose normal Face and Sinus: face symmetric Mouth: oral mucosae normal Eyes General: appearance normal, both eyes and all related structures Eyelids: eyelids normal Conjunctivae: conjunctivae normal Pupils: PERRL and normal by confrontation EOM: EOM intact bilaterally Neck Neck: normal visual inspection and full ROM Carotids: normal carotid upstroke Chest Chest inspection: normal inspection of the chest Auscultation: Bilateral: Clear to Auscultation Cardio Palpation: normal PMI Rate: regular rate Rhythm: regular rhythm Heart sounds: S1 normal and S2 normal GI GI: normal to inspection, no hepatosplenomegaly and bowel sounds present Neuro General: alert, oriented x3, awake, CN's II-XI intact bilaterally and moves all extremities Skin Skin: no rashes or lesions noted Extremities Pulses: Normal: Right Femoral Pulse, Left Femoral Pulse, Right Dorsalis Pedis Pulse, Left Dorsalis Pedis Pulse, Right Posterior Tibial Pulse, Left Posterior Tibial Pulse, Right Radial Pulse, Left Radial Pulse Lower Extremity Edema: None: Bilateral Psych Psychological: normal affect Assessment AND Plan 1. NGHIA (obstructive sleep apnea) G47.33 14/8 cm H2O Plan 1. Obstructive sleep apnea: The patient feels markedly better since being diagnosed with NGHIA and utilizing her BiPAP. She is compliant with this and has much better energy, and is exercising regularly to facilitate weight loss. Her blood pressure is optimized at this time. Continue clonidine and as needed melatonin at night for sleep. 2. Hypercholesteremia E78.00 Plan 2. Hyperlipidemia: Her LDL cholesterol is significantly elevated for her risk factors. She was started on simvastatin with repeat lipid profile pending. Continue Zocor for now. Preference would be for her LDL to be less than 130. 3. Return office in 6 months. This note was generated using a voice recognition system and there may be incorrect words, spelling or punctuation that were not noted when reviewing the office note prior to saving. Orders Orders: Plan Detail Other Orders Orders: Other Medications Changed: Refilled: Follow Up +6M (Greg) Coding Level of Care Code Off vis,est,level 3 Diagnoses NGHIA (obstructive sleep apnea) G47.33 Hypercholesteremia E78.00 Coding Level of Care Code Off vis,est,level 3 Diagnoses NGHIA (obstructive sleep apnea) G47.33 Hypercholesteremia E78.00 Supplemental Info Supplemental Information Labs LDL Cholesterol 145 mg/dL (0-130) H 10/09/17 HDL Cholesterol 46 mg/dL (40-) 10/09/17 Triglycerides 115 mg/dL (-199) 10/09/17 VLDL Cholesterol 23 mg/dL (5-40) 10/09/17 Diagnostics Electrocardiogram 10/09/17 Echocardiogram 04/24/17 Stress Echocardiogram 05/23/17 Pacemaker Check 10/09/17 Pulmonary Pulmonary Function Test 06/19/17 02/23/18 1349 <Electronically signed by Killian Garza MD> Date Killian Garza MD Cosigner Signature: Date (if applicable) CC: Iron Ruiz PULMONARY VISIT REPORT Observed: 02/17/2018 Status: F Source: [place] 11:[address] [facility] REPOSITORY [facility] [address] [place] [address] OFFICE VISIT Date of Service: 02/17/18 MR#: [id number] Acct: [id number] Name: SKY MUSA Rep #: [id number] : 1975 Provider: Rosie Gusman Age/Sex: 42/F Location: [facility] [place] Status: Signed Assessment AND Plan 1. NGHIA (obstructive sleep apnea) G47.33 Plan Patient is using and benefiting from Pap therapy. No indication for titration study at this time. Continue to encourage weight loss. Contact the office for any new or worsening symptoms in the meantime. Follow-up in 6 months. 2. Obesity (BMI 30-39.9) E66.9 Plan Continue to encourage weight loss. After approximately 20% weight loss she may require a titration study. 3. Mild intermittent asthma, unspecified whether complicated J45.20 Plan Stable. No need to step up therapy. No additional testing at this time. Follow-up with Dr. Joy in 6 months. Contact the office with any new or worsening symptoms in the meantime. Plan Detail Follow Up 6 Months ([facility]) HPI 6 M FU: Chief Complaint: none HPI Comments Details: This is a 42 year old F, here to follow up for sleep apnea. Current use of pressure support therapy is on average of 4.5 hours per night with current settings of 14/8 cmH2O. SKY denies any daytime somnolence, dry mouth in the morning, nocturia, snoring through the mask, morning headaches or difficulty with mask leaks. SKY reports feeling rested in the morning and is benefitting from current therapy. Compliance report was reviewed and shows 80% compliance, AHI is controlled with an average of 0.9 events per hour and leaks do not appear to be consistent issue. He only experiences shortness of breath on exertion. Denies any shortness of breath with rest or conversation. Denies any cough but states she is getting over bronchitis. Admits that there were some days that she was unable to tolerate her Pap because of the bronchitis. Denies any wheezing, chest tightness, chest pain or palpitations. Denies any fever, chills or body aches. Reports feeling more rested, denies any additional nap taking has made progress. Intake Vital Signs02/17/18 Height 5 ft 8 in 02/17/18 Weight: 231 lb Intake Visit Reasons: 6 M FU DME Vendor: MATT Accompanied by: Self Allergies latex Allergy (Verified 02/17/18 10:32) Rash Penicillins Allergy (Verified 02/17/18 10:32) Rash Medications Albuterol Inhaler [Ventolin Hfa] 1 - 2 puff INHALATION Q4H PRN PRN 12/15/12 [History Confirmed 02/17/18] busPIRone [Buspar] 5 mg PO BID 12/15/12 [History Confirmed 02/17/18] clonidine HCl 0.1 mg tablet 0.1 mg PO BID PRN 04/07/17 [History Confirmed 02/17/18] omeprazole 20 mg capsule,delayed release 20 mg PO QDAY 04/07/17 [History Confirmed 02/17/18] propranolol ER 120 mg capsule,24 hr,extended release 120 mg PO DAILY 30 Days 04/07/17 [History Confirmed 02/17/18] sertraline 100 mg tablet 100 mg PO DAILY 30 Days 04/07/17 [History Confirmed 02/17/18] melatonin 3 mg tablet 3 mg PO HS PRN 10/09/17 [History Confirmed 02/17/18] simvastatin 40 mg tablet 40 mg PO QPM #90 tab 10/10/17 [Rx Confirmed 02/17/18] [facility] Medical History Obesity (BMI 30-39.9) (Chronic) Hypercholesteremia (Chronic) Vasovagal syncope (Chronic) Asthma (Chronic) Hypertension (Chronic) Back pain (Chronic) Depression (Chronic) GERD (gastroesophageal reflux disease) (Chronic) 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) History of hysterectomy (Chronic) Seizure (Chronic) Status post placement of implantable loop recorder (Resolved 02/13/14) Surgical History History of (Chronic) ORIF right ankle (Chronic) loop recorder explanted (Resolved 10/24/17) Family History Mother Hypertension Brother Hypertension Diabetes Grandfather CAD (coronary artery disease) Grandmother CAD (coronary artery disease) Social History Smoking Status: Never smoker second hand exposure: Yes substance use type: does not use Review of Systems Const CONSTITUTIONAL: Positive weight loss, fatigue and weight loss; negative anorexia, body ache, chills, daytime sleepiness, fever(s), night sweats, oral thrush, stops breathing during sleep, sleeping in chair, weight gain, frequent colds, seasonal allergies, other, headache(s) or orthopnea EETM Ear Nose Throat Mouth: Positive hearing normal; negative hard of hearing, hoarseness, dry mouth in morning, change in vision, itchy eyes, eye pain, swallowing Difficulty, ear pain, nose bleed, headache(s), mouth pain, nasal congestion, nasal discharge, post nasal drip, sinus pain, sinus pressure, sore throat or other Cardio Cardiovascular: Negative chest pain, chest pain at rest, chest pain with activity, irregular heart rhythm, edema, shortness of breath when lying down, palpitations, murmur or other Resp Respiratory: Positive as per HPI and shortness of breath shortness of breath: Positive with activity; negative pain with cough, wheezing, chest congestion, cough, chest tightness, pain on inspiration, inhalers, increase use of rescue inhalers, snoring, apnea or other Gastro Gastrointestional: Negative bloody stools, change in appetite, difficulty swallowing, reflux, hematemesis, melena stool, loose stool, constipation or other Genitourinary: Negative blood in urine, nocturia, pain with urination or other Musc Musculoskeletal: Negative body pain, back pain, neck pain or other Skin/Breast Skin/Breast: Negative dry skin, itching, rash, unusual bruising, breast lump or other Neuro Neurological: Negative restless legs, confusion, weakness or other Psych Psychocological: Negative abnormal sleep pattern, anxiety, thoughts of hurting self/others, hopelessness or other Lymph Lymphatic: Negative easy bleeding, easy bruising, swollen lymph nodes or other Exam Const Constitutional: Positive conversant, cooperative, in no acute respiratory distress, healthy appearing, well developed, well nourished and good hygiene Head Head: Positive normocephalic and atraumatic; negative cyanosis of lips/distal nose Eyes Eye: Positive clear conjunctiva; negative nystagmus or scleral abnormality Ears Ear: Positive hearing normal and external ears normal; negative hard of hearing Nose Nose: Positive external nose normal and no nasal discharge; negative epistaxis Mouth Mouth: Positive oral mucosae normal, no lesions, good dentition and posterior oropharynx is adequate; negative post nasal drip, malodorous breath or oral thrush present Mallampati Score: I: Mallampati Score Neck Neck: Positive normal visual inspection, full ROM, trachea midline and thick neck; negative lymphadenopathy, JVD or tender Chest Wall Chest: Positive normal inspection of the chest and symmetric chest movement; negative increased A/P diameter Resp lung sounds: Positive clear to auscultation, good air exchange, normal expiratory time and normal respiratory effort; negative diminished, wheezes, rhonchi, rales, dullness to percussion or wheeze present on forced exhalation Cardio Cardiac: Positive regular rate, regular rhythm, S1 normal and S2 normal; negative murmur GI GI: Positive normal to inspection; negative distended Genitourinary: Positive deferred Musc Musculoskeletal: Positive steady gait and ROM normal; negative kyphosis or scoliosis Skin Pulmonary Skin Exam: Positive intact; negative rash Pulses Pulse: Yes pulses normal x4 extremities Extremities Extremities: Yes capillary refill normal, No clubbing, No cyanosis, No edema Neuro Neurologic: Yes conversant, Yes no focal neuro deficits, Yes normal concentration, Yes understands questions, Yes cooperative, Yes normal cognition, Yes normal coordination, No tremor Lymph Lymphatic: No lymphadenopathy, No tenderness, No cervical adenopathy Psych Appearance: Positive grossly normal, eye contact and well kempt Mental Status: Positive mental status grossly normal Mood: Positive congruent mood Affect: Positive normal affect Coding Level of Care Code Off vis,est,level 3 Diagnoses NGHIA (obstructive sleep apnea) G47.33 Obesity (BMI 30-39.9) E66.9 Mild intermittent asthma, unspecified whether complicated J45.20 Asthma severity: mild Asthma persistence: intermittent Asthma complication type: unspecified 02/17/18 1120 <Electronically signed by Rosie SHIRLEY> Date Rosie SHIRLEY Cosigner Signature: Date (if applicable) CC: Iron MADDENO Observed: 01/07/2018 Status: COMPLETED Source: [place] 2:27 PM [facility] [place] REPOSITORY HNO ID: [id number] Author: Mammography Coordinator Service: (none) Author Type: Physician Type: Letter Filed: 01/08/2018 11:32 PM Note Text: January 07, 2018 PID: [id number] Sky Musa [address] [place] [address], [place] [address] Dear Ms. Musa, We are pleased to inform you that the results of your recent breast imaging exam on 01/07/2018 are normal. Early detection of cancer is very important. We also understand recommendations regarding breast cancer screening are controversial. Please discuss with your primary care provider which strategy is best for you and whether a mammogram is right for you. Your imaging studies and report will be kept on file at [facility] as part of your permanent medical record and are available for your continuing care. Thank you for allowing us to help in meeting your health care needs. Sincerely, Dr. Will Interpreting Radiologist [facility] (Normal over 40) [facility] SCREENING Observed: 01/07/2018 Status: F Source: [place] 10:16 AM [facility] REPOSITORY * * *Final Report* * * DATE OF EXAM: Jan 07 2018 10:16AM [place] [id number] - [facility] SCREENING / PROCEDURE REASON: Visit for screening mammogram * * * * Physician Interpretation * * * * RESULT: #[id number] - [facility] SCREENING BILATERAL DIGITAL SCREENING MAMMOGRAM WITH CAD: 01/07/2018 HISTORY: Visit For Screening Mammogram /priors available for comparison. RESULT: TECHNIQUE: The study was acquired using full field digital technology and interpreted from soft copy. Current study was also evaluated with a Computer Aided Detection (CAD). Comparison is made to exams dated: 05/23/2016 mammogram, 11/23/2015 mammogram - [facility], and 11/09/2015 mammogram - [facility]. There are scattered fibroglandular elements in both breasts. There is a biopsy clip in the left breast. No significant masses, calcifications, or other findings are seen in either breast. There has been no significant interval change. IMPRESSION: There is no mammographic evidence of malignancy. A 1 year screening mammogram is recommended. Valentine harris/joseph:01/07/2018 14:27:10 Rib Sawyer(s): RT Nathen(Prerna)(M), [facility] letter sent: Normal over 40 Mammogram BI-RADS: 1 Negative Multiple national specialty organizations have released breast cancer screening guidelines for women at average risk for developing breast cancer - guidelines that are based on both evidence and opinion, yet differ on when to start and how often to screen for breast cancer. With representation from Breast Imaging, Internal Medicine, Women's Health, Family Medicine, and Medical/Surgical Oncology, the [facility] has carefully reviewed the data and reached the following consensus: 1) All women should engage in shared decision-making with their providers to decide when to start and how often to screen; 2) All women should have the opportunity to start screening mammography at age 40; 3) For women ages 45-55, we recommend annual screening mammograms; 4) For women ages 55 and over, we support both the transition from an annual to a biennial interval if this aligns more with patient's values and preferences, or continuation with annual screening; 5) All women should discuss with their providers when to stop screening mammograms. Emblem Cutter: Joseph Transcribe Date/Time: Jan 07 2018 9:56A Dictated by: VALENTINE WILL MD This examination was interpreted and the report reviewed and electronically signed by: VALENTINE WILL MD on Jan 07 2018 2:27PM EST [id number] PROCEDURE Observed: 01/07/2018 Status: COMPLETED Source: [place] 9:55 AM [facility] [place] REPOSITORY HNO ID: [id number] Author: Katrina Sena (Rt) Service: (none) Author Type: Disaster Recovery Analyst Type: Procedures Filed: 01/07/2018 10:01 AM Note Text: Radiology Service Progress Note PATIENT NAME: Sky Musa DATE OF SERVICE: January 07, 2018 TIME: 9:55 AM PATIENT IDENTITY VERIFICATION COMPLETED USING TWO (2) METHODS: Patient confirmed name verbally and Date of . PATIENT GENDER DATA: Female. status: : No status: NO. PATIENT RELEVANT IMPLANT DATA REVIEWED: Not Applicable RADIOLOGY DEPARTMENT: [facility] IV DATA: Not applicable SIGNED BY: RT Nathen January 07, 2018 9:55 AM PROGRESS Observed: 12/24/2017 Status: COMPLETED Source: [place] 12:55 PM [facility] REPOSITORY HNO ID: [id number] Author: Iron Ruiz Service: (none) Author Type: Physician Order Selector Type: Progress Notes Filed: 12/25/2017 1:33 PM Note Text: 42 year old female with c/o 1. Needs mammogram. 2. Vasovagal syncope: No recent episodes. Follows with [facility] 3. Hypercholesterolemia: no medciation Component Latest Ref Rng AND Units 08/02/2016 10/09/2017 Triglyceride 89 115 Cholesterol, Total 240 (H) 214 HDL Cholesterol >55 mg/dL 52 (L) VLDL Cholesterol 18 23 LDL Cholesterol 60 - 129 mg/dL 170 (H) Fasting Time hrs 12 TC:HDL Ratio 1.00 - 5.00 4.62 LDL:HDL Ratio 0.50 - 3.55 3.27 Non HDL Cholesterol 90 - 159 mg/dL 188 (H) HDL CHOLESTEROL 46 LDL Cholesterol 145 4. Adjustment reaction with anxiety and depression: situational issues compounding: son in alf, unable to see grandchildren, marital issues. 5. Gastroesophageal reflux disease, esophagitis presence not specified: controlled 6. Seizures (hcc): not confirmed. Presents more with vasovagal syncope 7. Moderate persistent asthma with (acute) exacerbation: quiescent currently 8. Nghia (obstructive sleep apnea): follow ing with Dr. Man Joy, wearing CPAP, compliant 9. Migraine with aura, not intractable, without status migrainosus: currently controlled HISTORIES FAMILY HISTORY Problem Relation Age of Onset - other (lupus [Other]) Maternal Uncle - other (unknown [Other]) Father - other (htn [Other]) Mother - other (hyperlipidemia [Other]) Mother - Cancer Maternal Aunt HEEL STIFFENER - other (lung cancer [Other]) Maternal Uncle - Coronary Artery Disease Maternal Grandmother - Coronary Artery Disease Maternal Grandfather - Coronary Artery Disease Paternal Grandmother - Coronary Artery Disease Paternal Grandfather - Diabetes Brother - Hypertension Brother - Cancer Unknown - Cancer Maternal Uncle bone PAST MEDICAL HISTORY Diagnosis Date - Asthma - Depression Dez in [place] Dr. Clark, Counselor Adina - Headaches due to old head injury - NGHIA (obstructive sleep apnea) 05/12/2017 - Seizures (HCC) Neurologist Dr. 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 Social History Main Topics Smoking status: Former Smoker Packs/day: 0.00 Years: 2.00 Smokeless tobacco: Never Used Comment: A couple cigarettes a day for two years Alcohol use: No Drug use: No Sexual activity: Yes Partners with: Male control/protection: None ACTIVE PROBLEM LIST Asthma Menorrhagia Dysmenorrhea Fibroid Vasovagal Syncope Hypercholesterolemia Chronic Bilateral Low Back Pain Without Sciatica Chronic Pain of Left Ankle Gastroesophageal Reflux Disease Adjustment Reaction With Anxiety and Depression Migraine Without Aura and Without Status Migrainosus, Not Intractable Headaches Due to Old Head Injury Seizures (Hcc) Vitamin D Deficiency Lateral Epicondylitis of Left Elbow Chest Pain Abnormal Echocardiogram Nghia (Obstructive Sleep Apnea) Moderate Persistent Asthma With (Acute) Exacerbation Current Outpatient Prescriptions: sertraline (ZOLOFT) 100 mg tablet TAKE 1 TABLET BY MOUTH ONCE DAILY. Disp: 90 tablet Rfl: 1 cloNIDine HCl (CATAPRES) 0.1 mg tablet TAKE 1 TABLET BY MOUTH TWICE DAILY. FOR HEADACHES Disp: 180 tablet Rfl: 1 zonisamide (ZONEGRAN) 50 mg capsule TAKE 1 CAPSULE IN THE MORNING AND 2 CAPSULES AT BEDTIME Disp: 270 capsule Rfl: 2 FLOVENT HFA 220 mcg/actuation inhaler INHALE 1 PUFF INSTRUCTED TWICE DAILY. Disp: 36 Inhaler Rfl: 1 busPIRone (BUSPAR) 10 mg tablet TAKE 1 TABLET BY MOUTH THREE TIMES DAILY. Disp: 270 tablet Rfl: 1 omeprazole (PRILOSEC) 20 mg capsule TAKE 2 CAPSULES BY MOUTH DAILY BEFORE BREAKFAST. 1/2 HR BEFORE MEAL. Disp: 180 capsule Rfl: 1 propranolol ER (INDERAL LA) 60 mg 24 hr capsule Take 1 capsule by mouth once daily. Disp: 90 capsule Rfl: 3 gabapentin (NEURONTIN) 300 mg capsule Take 3 capsules by mouth twice daily. Disp: 540 capsule Rfl: 3 albuterol HFA (VENTOLIN HFA) 90 mcg/actuation inhaler Inhale 2 Puffs as instructed every 4 hours as needed. Disp: 54 Inhaler Rfl: 0 desloratadine (CLARINEX) 5 mg tablet Take 1 tablet by mouth once daily. Disp: 90 tablet Rfl: 1 SUMAtriptan (IMITREX) 100 mg tablet Take 1 tablet by mouth as needed for Migraine Headache (see administration instructions). Disp: 9 tablet Rfl: 11 ondansetron (ZOFRAN) 8 mg tablet Take 1 tablet by mouth every 8 hours as needed for Nausea/Vomiting. Disp: 45 tablet Rfl: 1 No current facility-administered medications for this visit. MAMMOGRAM due on 11/08/2016 INFLUENZA(1) due on 10/11/2017 EXAM: BP 114/80 Pulse 76 Temp 36.3 ?C (97.4 ?F) (Tympanic) Resp 16 Wt 105.2 kg (232 lb) LMP 11/26/2012 BMI 33.29 kg/m? Pleasant adult woman in no acute distress. Alert and oriented all spheres. Normal affect and cognition. Speech normal. No deficits to learning or comprehension. Skin warm, dry, pink to lips and nailbeds. Normal turgor. Respirations regular and unlabored. HEENT WNL. TM's clear. Nose and oropharynx free from injection or lesion. No cervical lymph nodes. Thyroid non-tender, no masses Chest CTA. HRRR without murmur or gallop. Extrem: no clubbing, cyanosis, edema. Extremities are warm and pink with prompt capillary refill. ASSESSMENT/PLAN: 1. Visit for screening mammogram - ICD9: V76.12, ICD10: Z12.31 (primary diagnosis) - Encouraged monthly BSE - Follow up for annual exam in one year. - MARGARET SCREENING 2. Need for vaccination - ICD9: V05.9, ICD10: Z23 - INFLUENZA VACCINE QUADRIVALENT AGE 3 YRS PLUS + IM 3. Vasovagal syncope - ICD9: 780.2, ICD10: R55 refill - PROPRANOLOL ER 60 MG CAPSULE,24 HR,EXTENDED RELEASE 4. Hypercholesterolemia - ICD9: 272.0, ICD10: E78.00 - suboptimal control - Discussed the benefits of regular aerobic exercise and weight loss. - Encouraged following a low carbohydrate, healthy oil intake diet. 5. Adjustment reaction with anxiety and depression - ICD9: 309.28, ICD10: F43.23 Discussed adjustment due to stress issues. Doesn't want to increase dose. Reflective listening. Discussed empowerment techniques. - BUSPIRONE 10 MG TABLET - SERTRALINE 100 MG TABLET 6. Gastroesophageal reflux disease, esophagitis presence not specified - ICD9: 530.81, ICD10: K21.9 - Controlled on medication - OMEPRAZOLE 20 MG CAPSULE,DELAYED RELEASE 7. Seizures (HCC) - ICD9: 780.39, ICD10: R56.9 None reccent 8. Moderate persistent asthma with (acute) exacerbation - ICD9: 493.92, ICD10: J45.41 Mild intermittent Asthma stable - Continue current meds - Avoidance of triggers recommended - FLUTICASONE 220 MCG/ACTUATION HFA AEROSOL INHALER - ALBUTEROL SULFATE HFA 90 MCG/ACTUATION AEROSOL INHALER 9. NGHIA (obstructive sleep apnea) - ICD9: 327.23, ICD10: G47.33 CPAP compliant 10. Migraine with aura, not intractable, without status migrainosus - ICD9: 346.00, ICD10: G43.109 Refills - GABAPENTIN 300 MG CAPSULE - CLONIDINE HCL 0.1 MG TABLET - SUMATRIPTAN 100 MG TABLET - ONDANSETRON HCL 8 MG TABLET F/u 6 months or as needed Patient (guardian) expressed understanding of instructions and agrees with plan. Iron Ruiz PA-C PROGRESS Observed: 12/24/2017 Status: COMPLETED Source: [place] 12:21 PM [facility] REPOSITORY O ID: [id number] Author: Iron Ruiz Service: (none) Author Type: Physician Order Selector Type: Progress Notes Filed: 12/25/2017 1:33 PM Note Text: 42 year old female here for INACTIVATED INFLUENZA VACCINE. 5506-4761 Season Patient is identified by name and date of : Yes [] CONTRAINDICATIONS color enhanced section Age less than 6 months? No Allergy to eggs, chicken, chicken feathers, or chicken dander? No Allergy to thimerosal (a preservative) or formaldehyde, gelatin? No History of severe reaction to any vaccine component or a previous dose of influenza vaccination? No History of Guillain-[place] Syndrome within 6 weeks after a previous influenza vaccine? No Patient is not moderately or severely ill? No Current temperature greater or equal to 100.4F? No History of Bone Marrow Transplant prior 6 months or solid organ transplant in the past 3 months ? No History of fainting after a prior injection or medical procedure? No- ? If patient has fainted in the past, the CDC recommends sitting or lying down for 15 minutes after the vaccination. [] VERIFICATION color enhanced section Was the answer Yes for any of the above contraindications? No contraindications present. Acceptable to proceed with vaccine. Patient/guardian agrees the above answers are true to the best of their knowledge? Yes Flu vaccine information sheet given? Yes See immunization activity in [facility] for details of immunizations adminstered today. Patient age: [age] year old For The 5888-1802 Flu Season 6-35 months old: Fluzone 0.25 ml - IM (Preservative Free) 3 years of age: Fluzone 0.5 ml - IM (Preservative Free) 3 years and older: Fluzone 0.5 ml- IM-(with Preservatives) 65+ years old: 2-49 years old Fluzone High-Dose 0.5 ml - IM (Preservative Free) FLUMIST- intranasal REMEMBER: If patient is less than 9 years of age and this is the first vaccine of Influenza to be received in any flu season, they should receive a second dose in one months time. CNOV Observed: 12/24/2017 Status: COMPLETED Source: [place] 11:20 AM [facility] REPOSITORY Office Visit (FAMPWS) SKY MUSA ([id number]) 1975 F Date Time Provider Department 12/24/17 11:20 AM Iron RUIZ) LILIA During your visit today, we recorded the following information about you: Temperature Pulse Respiration Blood pressure 97.4 degrees 76/minute 16/minute 114/80 Weight 105.2 kg M Cynthia Ruiz PA-C 12/25/2017 1:33 PM Signed 42 year old female here for INACTIVATED INFLUENZA VACCINE. [id number] Season Patient is identified by name and date of : Yes [] CONTRAINDICATIONS color enhanced section Age less than 6 months? No Allergy to eggs, chicken, chicken feathers, or chicken dander? No Allergy to thimerosal (a preservative) or formaldehyde, gelatin? No History of severe reaction to any vaccine component or a previous dose of influenza vaccination? No History of Guillain-[place] Syndrome within 6 weeks after a previous influenza vaccine? No Patient is not moderately or severely ill? No Current temperature greater or equal to 100.4F? No History of Bone Marrow Transplant prior 6 months or solid organ transplant in the past 3 months ? No History of fainting after a prior injection or medical procedure? No- ? If patient has fainted in the past, the CDC recommends sitting or lying down for 15 minutes after the vaccination. [] VERIFICATION color enhanced section Was the answer Yes for any of the above contraindications? No contraindications present. Acceptable to proceed with vaccine. Patient/guardian agrees the above answers are true to the best of their knowledge? Yes Flu vaccine information sheet given? Yes See immunization activity in [facility] for details of immunizations adminstered today. Patient age: [age] year old For The 2475-0492 Flu Season 6-35 months old: Fluzone 0.25 ml - IM (Preservative Free) 3 years of age: Fluzone 0.5 ml - IM (Preservative Free) 3 years and older: Fluzone 0.5 ml- IM-(with Preservatives) 65+ years old: 2-49 years old Fluzone High-Dose 0.5 ml - IM (Preservative Free) FLUMIST- intranasal REMEMBER: If patient is less than 9 years of age and this is the first vaccine of Influenza to be received in any flu season, they should receive a second dose in one months time. Iron Ruiz PA-C 12/25/2017 1:33 PM Signed 42 year old female with c/o 1. Needs mammogram. 2. Vasovagal syncope: No recent episodes. Follows with [facility] 3. Hypercholesterolemia: no medciation Component Latest Ref Rng AND Units 08/02/2016 10/09/2017 Triglyceride 89 115 Cholesterol, Total 240 (H) 214 HDL Cholesterol >55 mg/dL 52 (L) VLDL Cholesterol 18 23 LDL Cholesterol 60 - 129 mg/dL 170 (H) Fasting Time hrs 12 TC:HDL Ratio 1.00 - 5.00 4.62 LDL:HDL Ratio 0.50 - 3.55 3.27 Non HDL Cholesterol 90 - 159 mg/dL 188 (H) HDL CHOLESTEROL 46 LDL Cholesterol 145 4. Adjustment reaction with anxiety and depression: situational issues compounding: son in alf, unable to see grandchildren, marital issues. 5. Gastroesophageal reflux disease, esophagitis presence not specified: controlled 6. Seizures (hcc): not confirmed. Presents more with vasovagal syncope 7. Moderate persistent asthma with (acute) exacerbation: quiescent currently 8. Nghia (obstructive sleep apnea): follow ing with Dr. Man Joy, wearing CPAP, compliant 9. Migraine with aura, not intractable, without status migrainosus: currently controlled HISTORIES FAMILY HISTORY Problem Relation Age of Onset - other (lupus [Other]) Maternal Uncle - other (unknown [Other]) Father - other (htn [Other]) Mother - other (hyperlipidemia [Other]) Mother - Cancer Maternal Aunt HEEL STIFFENER - other (lung cancer [Other]) Maternal Uncle - Coronary Artery Disease Maternal Grandmother - Coronary Artery Disease Maternal Grandfather - Coronary Artery Disease Paternal Grandmother - Coronary Artery Disease Paternal Grandfather - Diabetes Brother - Hypertension Brother - Cancer Unknown - Cancer Maternal Uncle bone PAST MEDICAL HISTORY Diagnosis Date - Asthma - Depression Dez in [place] Dr. Clark, Counselor Adina - Headaches due to old head injury - NGHIA (obstructive sleep apnea) 05/12/2017 - Seizures (HCC) Neurologist Dr. 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 Social History Main Topics Smoking status: Former Smoker Packs/day: 0.00 Years: 2.00 Smokeless tobacco: Never Used Comment: A couple cigarettes a day for two years Alcohol use: No Drug use: No Sexual activity: Yes Partners with: Male control/protection: None ACTIVE PROBLEM LIST Asthma Menorrhagia Dysmenorrhea Fibroid Vasovagal Syncope Hypercholesterolemia Chronic Bilateral Low Back Pain Without Sciatica Chronic Pain of Left Ankle Gastroesophageal Reflux Disease Adjustment Reaction With Anxiety and Depression Migraine Without Aura and Without Status Migrainosus, Not Intractable Headaches Due to Old Head Injury Seizures (Hcc) Vitamin D Deficiency Lateral Epicondylitis of Left Elbow Chest Pain Abnormal Echocardiogram Nghia (Obstructive Sleep Apnea) Moderate Persistent Asthma With (Acute) Exacerbation Current Outpatient Prescriptions: sertraline (ZOLOFT) 100 mg tablet TAKE 1 TABLET BY MOUTH ONCE DAILY. Disp: 90 tablet Rfl: 1 cloNIDine HCl (CATAPRES) 0.1 mg tablet TAKE 1 TABLET BY MOUTH TWICE DAILY. FOR HEADACHES Disp: 180 tablet Rfl: 1 zonisamide (ZONEGRAN) 50 mg capsule TAKE 1 CAPSULE IN THE MORNING AND 2 CAPSULES AT BEDTIME Disp: 270 capsule Rfl: 2 FLOVENT HFA 220 mcg/actuation inhaler INHALE 1 PUFF INSTRUCTED TWICE DAILY. Disp: 36 Inhaler Rfl: 1 busPIRone (BUSPAR) 10 mg tablet TAKE 1 TABLET BY MOUTH THREE TIMES DAILY. Disp: 270 tablet Rfl: 1 omeprazole (PRILOSEC) 20 mg capsule TAKE 2 CAPSULES BY MOUTH DAILY BEFORE BREAKFAST. 1/2 HR BEFORE MEAL. Disp: 180 capsule Rfl: 1 propranolol ER (INDERAL LA) 60 mg 24 hr capsule Take 1 capsule by mouth once daily. Disp: 90 capsule Rfl: 3 gabapentin (NEURONTIN) 300 mg capsule Take 3 capsules by mouth twice daily. Disp: 540 capsule Rfl: 3 albuterol HFA (VENTOLIN HFA) 90 mcg/actuation inhaler Inhale 2 Puffs as instructed every 4 hours as needed. Disp: 54 Inhaler Rfl: 0 desloratadine (CLARINEX) 5 mg tablet Take 1 tablet by mouth once daily. Disp: 90 tablet Rfl: 1 SUMAtriptan (IMITREX) 100 mg tablet Take 1 tablet by mouth as needed for Migraine Headache (see administration instructions). Disp: 9 tablet Rfl: 11 ondansetron (ZOFRAN) 8 mg tablet Take 1 tablet by mouth every 8 hours as needed for Nausea/Vomiting. Disp: 45 tablet Rfl: 1 No current facility-administered medications for this visit. MAMMOGRAM due on 11/08/2016 INFLUENZA(1) due on 10/11/2017 EXAM: BP 114/80 Pulse 76 Temp 36.3 ?C (97.4 ?F) (Tympanic) Resp 16 Wt 105.2 kg (232 lb) LMP 11/26/2012 BMI 33.29 kg/m? Pleasant adult woman in no acute distress. Alert and oriented all spheres. Normal affect and cognition. Speech normal. No deficits to learning or comprehension. Skin warm, dry, pink to lips and nailbeds. Normal turgor. Respirations regular and unlabored. HEENT WNL. TM's clear. Nose and oropharynx free from injection or lesion. No cervical lymph nodes. Thyroid non-tender, no masses Chest CTA. HRRR without murmur or gallop. Extrem: no clubbing, cyanosis, edema. Extremities are warm and pink with prompt capillary refill. ASSESSMENT/PLAN: 1. Visit for screening mammogram - ICD9: V76.12, ICD10: Z12.31 (primary diagnosis) - Encouraged monthly BSE - Follow up for annual exam in one year. - MARGARET SCREENING 2. Need for vaccination - ICD9: V05.9, ICD10: Z23 - INFLUENZA VACCINE QUADRIVALENT AGE 3 YRS PLUS + IM 3. Vasovagal syncope - ICD9: 780.2, ICD10: R55 refill - PROPRANOLOL ER 60 MG CAPSULE,24 HR,EXTENDED RELEASE 4. Hypercholesterolemia - ICD9: 272.0, ICD10: E78.00 - suboptimal control - Discussed the benefits of regular aerobic exercise and weight loss. - Encouraged following a low carbohydrate, healthy oil intake diet. 5. Adjustment reaction with anxiety and depression - ICD9: 309.28, ICD10: F43.23 Discussed adjustment due to stress issues. Doesn't want to increase dose. Reflective listening. Discussed empowerment techniques. - BUSPIRONE 10 MG TABLET - SERTRALINE 100 MG TABLET 6. Gastroesophageal reflux disease, esophagitis presence not specified - ICD9: 530.81, ICD10: K21.9 - Controlled on medication - OMEPRAZOLE 20 MG CAPSULE,DELAYED RELEASE 7. Seizures (HCC) - ICD9: 780.39, ICD10: R56.9 None reccent 8. Moderate persistent asthma with (acute) exacerbation - ICD9: 493.92, ICD10: J45.41 Mild intermittent Asthma stable - Continue current meds - Avoidance of triggers recommended - FLUTICASONE 220 MCG/ACTUATION HFA AEROSOL INHALER - ALBUTEROL SULFATE HFA 90 MCG/ACTUATION AEROSOL INHALER 9. NGHIA (obstructive sleep apnea) - ICD9: 327.23, ICD10: G47.33 CPAP compliant 10. Migraine with aura, not intractable, without status migrainosus - ICD9: 346.00, ICD10: G43.109 Refills - GABAPENTIN 300 MG CAPSULE - CLONIDINE HCL 0.1 MG TABLET - SUMATRIPTAN 100 MG TABLET - ONDANSETRON HCL 8 MG TABLET F/u 6 months or as needed Patient (guardian) expressed understanding of instructions and agrees with plan. M Cynthia Ruiz PA-C Referring Provider: SELF [[id number]] Allergies As of Date: 12/24/2017 Noted Allergy Reaction LATEX 06/25/2012 2 - Rash 7 - Swelling Comments: Latex condoms, caused vaginal symptoms only PENICILLINS 06/11/2012 7 - Swelling Date Reviewed: 12/24/2017 Reviewed by: Bella Teixeira LPN - Fully Assessed Reason for Visit: Medication Follow-up [270] Imm/Inj [58] Cmt: Flu Vaccine Reason For Visit History Recorded Primary Visit Diagnosis:Visit for screening mammogram [Z12.31] Other Visit Diagnoses:Need for vaccination [Z23] Vasovagal syncope [R55] Hypercholesterolemia [E78.00] Adjustment reaction with anxiety and depression [F43.23] Gastroesophageal reflux disease, esophagitis presence not specified [K21.9] Seizures (HCC) [R56.9] Moderate persistent asthma with (acute) exacerbation [J45.41] NHGIA (obstructive sleep apnea) [G47.33] Migraine with aura, not intractable, without status migrainosus [G43.109] Order(s):[facility] SCREENING [[id number]] Order #: [id number] FUTURE INFLUENZA VACCINE QUADRIVALENT AGE 3 YRS PLUS + IM [[id number]] Order #: [id number] busPIRone (BUSPAR) 10 mg tabletTake 1 tablet by mouth three times daily.Disp: 270 tabletRfl: 1 fluticasone (FLOVENT HFA) 220 mcg/actuation inhalerInhale 1 Puff as instructed twice daily.Disp: 36 InhalerRfl: 1 omeprazole (PRILOSEC) 20 mg capsuleTake 2 capsules by mouth daily before breakfast. 1/2 hr before meal.Disp: 180 capsuleRfl: 1 propranolol ER (INDERAL LA) 60 mg 24 hr capsuleTake 1 capsule by mouth once daily.Disp: 90 capsuleRfl: 3 gabapentin (NEURONTIN) 300 mg capsuleTake 3 capsules by mouth twice daily.Disp: 540 capsuleRfl: 3 sertraline (ZOLOFT) 100 mg tabletTake 1 tablet by mouth once daily.Disp: 90 tabletRfl: 1 cloNIDine HCl (CATAPRES) 0.1 mg tabletTake 1 tablet by mouth twice daily. For headachesDisp: 180 tabletRfl: 1 albuterol HFA (VENTOLIN HFA) 90 mcg/actuation inhalerInhale 2 Puffs as instructed every 4 hours as needed.Disp: 54 InhalerRfl: 0 SUMAtriptan (IMITREX) 100 mg tabletTake 1 tablet by mouth as needed for Migraine Headache (see administration instructions).Disp: 9 tabletRfl: 11 ondansetron (ZOFRAN) 8 mg tabletTake 1 tablet by mouth every 8 hours as needed for Nausea/Vomiting.Disp: 45 tabletRfl: 1 Prescriptions as of 12/24/2017 Sig: BUSPIRONE 10 MG TABLET Take 1 tablet by mouth three * FLUTICASONE 220 MCG/ACTUATION* Inhale 1 Puff as instructed t* OMEPRAZOLE 20 MG CAPSULE,NEDA* Take 2 capsules by mouth amy* PROPRANOLOL ER 60 MG CAPSULE,* Take 1 capsule by mouth once * GABAPENTIN 300 MG CAPSULE Take 3 capsules by mouth twic* SERTRALINE 100 MG TABLET Take 1 tablet by mouth once d* CLONIDINE HCL 0.1 MG TABLET Take 1 tablet by mouth twice * ALBUTEROL SULFATE HFA 90 MCG/* Inhale 2 Puffs as instructed * SUMATRIPTAN 100 MG TABLET Take 1 tablet by mouth as nee* ONDANSETRON HCL 8 MG TABLET Take 1 tablet by mouth every * ZONISAMIDE 50 MG CAPSULE TAKE 1 CAPSULE IN THE MORNING* Problem List As Of Date 12/24/2017 Noted Resolved Asthma [J45.909] INVALID FOR* Menorrhagia [N92.0] INVALID FOR* Dysmenorrhea [N94.6] INVALID FOR* Fibroid [D21.9] INVALID FOR* Vasovagal syncope [R55] INVALID FOR* More... Hypercholesterolemia [E78.00] INVALID FOR* Status post placement of implantable loop recor*INVALID FOR*10/28/2017 More... Chronic bilateral low back pain without sciatic*INVALID FOR* Chronic pain of left ankle [M25.572, G89.29] INVALID FOR* Gastroesophageal reflux disease [K21.9] INVALID FOR* Adjustment reaction with anxiety and depression*INVALID FOR* Migraine without aura and without status migrai*INVALID FOR* More... 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 More... Vitamin D deficiency [E55.9] Lateral epicondylitis of left elbow [M77.12] INVALID FOR* Chest pain [R07.9] INVALID FOR* More... Abnormal echocardiogram [R93.1] INVALID FOR* More... NGHIA (obstructive sleep apnea) [G47.33] INVALID FOR* More... Moderate persistent asthma with (acute) exacerb*INVALID FOR* More... Prescriptions ordered this encounter Disp Refills Start End BUSPIRONE 10 MG TABLET 270 * 1 12/24/2017 Route: ORAL Sig: Take 1 tablet by mouth three times daily. FLUTICASONE 220 MCG/ACTUATION HFA AE* 36 I* 1 12/24/2017 Route: INHALATION Sig: Inhale 1 Puff as instructed twice daily. OMEPRAZOLE 20 MG CAPSULE,DELAYED REL* 180 * 1 12/24/2017 Route: ORAL Sig: Take 2 capsules by mouth daily before breakfast. 1/2 hr before meal. PROPRANOLOL ER 60 MG CAPSULE,24 HR,E* 90 c* 3 12/24/2017 Route: ORAL Sig: Take 1 capsule by mouth once daily. GABAPENTIN 300 MG CAPSULE 540 * 3 12/24/2017 12/24/2018 Route: ORAL Sig: Take 3 capsules by mouth twice daily. SERTRALINE 100 MG TABLET 90 t* 1 12/24/2017 Route: ORAL Sig: Take 1 tablet by mouth once daily. CLONIDINE HCL 0.1 MG TABLET 180 * 1 12/24/2017 Route: ORAL Sig: Take 1 tablet by mouth twice daily. For headaches ALBUTEROL SULFATE HFA 90 MCG/ACTUATI* 54 I* 0 12/24/2017 Route: INHALATION Sig: Inhale 2 Puffs as instructed every 4 hours as needed. SUMATRIPTAN 100 MG TABLET 9 ta* 11 12/24/2017 Route: ORAL Sig: Take 1 tablet by mouth as needed for Migraine Headache (see administration instructions). ONDANSETRON HCL 8 MG TABLET 45 t* 1 12/24/2017 Route: ORAL Sig: Take 1 tablet by mouth every 8 hours as needed for Nausea/Vomiting. Medications Discontinued During This Encounter promethazine-PHENYLephrine (PROMETHA* 120 * 0 09/10/2017 12/24/2017 Class: Print RX Route: ORAL Sig: Take 5 mL by mouth every 4 hours as needed. Disc: Reason for discontinue is not on file. dexamethasone (DECADRON) 4 mg tablet 6 ta* 0 04/22/2017 12/24/2017 Sig: Take 1 tab TID for 1 day then BID for 1 day then daily for 1 day then stop. Take with food. Disc: Reason for discontinue is not on file. desloratadine (CLARINEX) 5 mg tablet 90 t* 1 03/10/2017 12/24/2017 Route: ORAL Sig: Take 1 tablet by mouth once daily. Disc: Reason for discontinue is not on file. busPIRone (BUSPAR) 10 mg tablet 270 * 1 09/04/2017 12/24/2017 Route: ORAL Sig: TAKE 1 TABLET BY MOUTH THREE TIMES DAILY. Disc: Reason for discontinue is not on file. FLOVENT HFA 220 mcg/actuation inhaler 36 I* 1 09/04/2017 12/24/2017 Route: INHALATION Sig: INHALE 1 PUFF INSTRUCTED TWICE DAILY. Disc: Reason for discontinue is not on file. omeprazole (PRILOSEC) 20 mg capsule 180 * 1 09/04/2017 12/24/2017 Route: ORAL Sig: TAKE 2 CAPSULES BY MOUTH DAILY BEFORE BREAKFAST. 1/2 HR BEFORE MEAL. Disc: Reason for discontinue is not on file. propranolol ER (INDERAL LA) 60 mg 24* 90 c* 3 04/22/2017 12/24/2017 Route: ORAL Sig: Take 1 capsule by mouth once daily. Disc: Reason for discontinue is not on file. gabapentin (NEURONTIN) 300 mg capsule 540 * 3 04/22/2017 12/24/2017 Route: ORAL Sig: Take 3 capsules by mouth twice daily. Disc: Reason for discontinue is not on file. sertraline (ZOLOFT) 100 mg tablet 90 t* 1 11/03/2017 12/24/2017 Route: ORAL Sig: TAKE 1 TABLET BY MOUTH ONCE DAILY. Disc: Reason for discontinue is not on file. cloNIDine HCl (CATAPRES) 0.1 mg tabl* 180 * 1 11/03/2017 12/24/2017 Route: ORAL Sig: TAKE 1 TABLET BY MOUTH TWICE DAILY. FOR HEADACHES Disc: Reason for discontinue is not on file. albuterol HFA (VENTOLIN HFA) 90 mcg/* 54 I* 0 03/10/2017 12/24/2017 Route: INHALATION Sig: Inhale 2 Puffs as instructed every 4 hours as needed. Disc: Reason for discontinue is not on file. SUMAtriptan (IMITREX) 100 mg tablet 9 ta* 11 09/12/2016 12/24/2017 Route: ORAL Sig: Take 1 tablet by mouth as needed for Migraine Headache (see administration instructions). Disc: Reason for discontinue is not on file. ondansetron (ZOFRAN) 8 mg tablet 45 t* 1 09/12/2016 12/24/2017 Route: ORAL Sig: Take 1 tablet by mouth every 8 hours as needed for Nausea/Vomiting. Disc: Reason for discontinue is not on file. Follow-up and Disposition History Recorded Encounter Status:Closed by Iron RUIZ PA-C on 12/25/17 CNCO Observed: 12/24/2017 Status: COMPLETED Source: [place] 12:00 AM [facility] REPOSITORY Letter Text Dear Sky Musa: How to activate your [facility] [employer] Account 1. Visit the [employer] Signup page at [email or web address] 2. Identify yourself using your one-time use activation code: Not generated 3. Follow the on-screen prompts to choose your own secure username and password The following information will be necessary to access your account for the first time: Information needed for sign-up: Your custom activation code used one-time only for the initial account set-up. Your date of The last 4 digits of your social security number What to do next: Fill in the requested information on the Identify Yourself Form at [email or web address] , click Next. Create your login and password, choose a [employer] ID and password that will be easy for you to use, but impossible for anyone else to guess. Pick a security question that will assist you in the event you forget your password the next time you log-on. If you have difficulty activating your account, please call our [employer] helpline at [phone] or toll free at . We hope you enjoy using [employer]! Kindest Regards, [facility] [employer] Team PACEMAKER CHECK Observed: 10/10/2017 Status: F Source: FELI 2:[address] [facility] REPOSITORY [facility] [address] [place] [address] Pacemaker Check Date of Service: 10/09/17 1049 MR#: [id number] Acct: [id number] Name: SKY MUSA Rep #: [id number] : 1975 From: Dionna Carter Age/Sex: 42/F Location: [facility] Status: Signed Billing Codes ILR Device Interrogate: Yes 10/09/17 1051 <Electronically signed by Dionna Carter > Date Dionna Carter 10/10/17 1414<Electronically signed by Killian Garza MD> Cosigner Signature: Date (if applicable) Killian Garza MD CC: CARDIOLOGY VISIT Observed: 10/09/2017 Status: F Source: FELI REPORT 4:[address] [facility] REPOSITORY [facility] [address] [place] [address] OFFICE VISIT Date of Service: 10/09/17 MR#: [id number] Acct: [id number] Name: SKY MUSA Rep #: [id number] : 1975 Provider: Jyoti Golden Age/Sex: 42/F Location: [facility] [place] Status: Signed HPI HPI Details: SKY MUSA, is a 42 F who presents to the office today for an updated H AND P for an explant of her ILR. She has a history of hypertension, hyperlipidemia, atypical chest pain and neurocardiogenic syncope She sts that she is symptomatic when she does have an event. Her last event was several months ago. Her device did not demonstrate any arrhymias. Her Device has reached EOL. She does continue to have occasionally chest discomfort with walking on Inclines and with the humidity. She does have issues with bronchitis and was SOB last week. She does use a CPAP machine. She does occasionally have edema, this is at the end of the day. She does not have any palpitations. Intake Vital Signs10/09/17 Height 5 ft 8 in 10/09/17 Weight: 237 lb 10/09/17 Body Mass Index (BMI) 36.0 10/09/17 Blood Pressure 118/72 10/09/17 Blood Pressure Location Lt brachial Intake Visit Reasons: ILR EXPLANT/MMM Coil Tier Required: No Allergies latex Allergy (Verified 10/09/17 10:19) Rash Penicillins Allergy (Verified 10/09/17 10:19) Rash Medications Albuterol Inhaler [Ventolin Hfa] 1 - 2 puff INHALATION Q4H PRN PRN 12/15/12 [History Confirmed 10/09/17] busPIRone [Buspar] 5 mg PO BID 12/15/12 [History Confirmed 10/09/17] clonidine HCl 0.1 mg tablet 0.1 mg PO BID PRN 04/07/17 [History Confirmed 10/09/17] omeprazole 20 mg capsule,delayed release 20 mg PO QDAY 04/07/17 [History Confirmed 10/09/17] propranolol ER 120 mg capsule,24 hr,extended release PO 30 Days 04/07/17 [History Confirmed 10/09/17] sertraline 100 mg tablet PO 30 Days 04/07/17 [History Confirmed 10/09/17] simvastatin 20 mg tablet 20 mg PO QPM #30 tab 04/08/17 [Rx Confirmed 10/09/17] gabapentin 300 mg capsule PO DAILY 30 Days cap 10/09/17 [History Confirmed 10/09/17] melatonin 3 mg tablet 3 mg PO HS PRN 10/09/17 [History Confirmed 10/09/17] PFSH Medical History Status post placement of implantable loop recorder (Chronic 02/13/14) Obesity (BMI 30-39.9) (Chronic) Hypercholesteremia (Chronic) Vasovagal syncope (Chronic) Asthma (Chronic) Hypertension (Chronic) Back pain (Chronic) Depression (Chronic) GERD (gastroesophageal reflux disease) (Chronic) 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) Seizure (Chronic) Surgical History History of (Chronic) History of hysterectomy (Chronic) ORIF right ankle (Chronic) Family History Mother Hypertension Brother Hypertension Diabetes Grandfather CAD (coronary artery disease) Grandmother CAD (coronary artery disease) Social History Smoking Status: Never smoker second hand exposure: Yes substance use type: does not use ROS Const Const: Negative for weakness, fatigue, fever(s) or headache(s) Eyes Eyes: Negative for blind spots, loss of peripheral vision or transient loss of vision ENT ENT: Negative for headache(s), dizziness, tinnitus or Nosebleed/epistaxis Cardio Chest Pain: Yes Palpitations: No Edema: None Muscle aches with walking: None Resp Respiratory: Positive for SOB with activity and Cough; negative for SOB at rest or SOB orthopnea\SOB lying down GI GI: Negative nausea, vomiting, heartburn or vomiting blood/hematemesis : Negative for hematuria Musc Musc: Negative for muscle aches/ myalgia Neuro Neuro: Negative for weakness, headache(s), dizziness, near syncope, syncope, lightheadedness or orthostatic symptoms Zack Hematologic/Lymphatic: Negative for easy bleeding Endo Endo: Negative for fatigue Cardiology Exam Const Appearance: cooperative, healthy appearing and no acute distress Nutritional Appearance: well nourished and obese Orientation: alert, oriented x3 and oriented to person Head Head: normal to inspection, atraumatic and normocephalic Nose: external nose normal Face and Sinus: face symmetric Mouth: oral mucosae normal Eyes General: appearance normal, both eyes and all related structures Eyelids: eyelids normal Conjunctivae: conjunctivae normal Pupils: PERRL and normal by confrontation EOM: EOM intact bilaterally Neck Neck: normal visual inspection and full ROM Carotids: normal carotid upstroke Chest Chest inspection: normal inspection of the chest Auscultation: Bilateral: Clear to Auscultation Cardio Palpation: normal PMI Rate: regular rate Rhythm: regular rhythm Heart sounds: S1 normal and S2 normal GI GI: normal to inspection, no hepatosplenomegaly, bowel sounds present and obese Neuro General: alert, oriented x3, awake, CN's II-XI intact bilaterally and moves all extremities Skin Skin: no rashes or lesions noted Extremities Pulses: Normal: Right Femoral Pulse, Left Femoral Pulse, Right Dorsalis Pedis Pulse, Left Dorsalis Pedis Pulse, Right Posterior Tibial Pulse, Left Posterior Tibial Pulse, Right Radial Pulse, Left Radial Pulse Lower Extremity Edema: None: Bilateral Psych Psychological: normal affect Supplemental Info Stress echocardiogram 2018 demonstrated : The estimated ejection fraction is 65 %. Normal adequate treadmill echocardiogram. Negative for ischemia by EKG and echocardiographic criteria. No anginal symptoms noted. Rare PVCs noted. Appropriate blood pressure response to exercise. Average exercise capacity for age. Test terminated due to dyspnea. Final LVEF of 75%. Assessment AND Plan 1. Essential hypertension I10 Plan Controlled on current medications, will not make any adjustments at this time. Orders Orders: 2. Vasovagal syncope R55 Plan Patient has not had any episodes recently. Her device has not demonstrated any arrhythmias. She will have this removed Orders Orders: 3. Hypercholesteremia E78.00 Plan Patient was started on lipid lowering medication earlier this year. She is due to have her lipids checked. Will obtain this in the near future. Orders Orders: Plan Detail Other Orders Orders: Additional Comments Thank you for allowing us to participate in the patients plan of care, if you have any questions please do not hesitate to call. This note was generated using a voice recognition system and there may be incorrect words, spelling or punctuation that were not noted when reviewing the office note prior to saving. Follow Up 10/09/17 (Keep as is) Coding Level of Care Code Off vis,est,level 3 Diagnoses Essential hypertension I10 Hypertension type: essential hypertension Vasovagal syncope R55 Hypercholesteremia E78.00 Coding Level of Care Code Off vis,est,level 3 Diagnoses Essential hypertension I10 Hypertension type: essential hypertension Vasovagal syncope R55 Hypercholesteremia E78.00 10/09/17 1619 <Electronically signed by Jyoti VALENZUELA> Date Jyoti VALENZUELA Cosigner Signature: Date (if applicable) CC: Iron Ruiz CBC-COMPLETE BLOOD CNT Collected: 10/09/2017 Status: F Source: FELI NO DIFF 10:[address] [facility] REPOSITORY TYPE CODE TESTS RESULT OUT OF RANGE REFERENCE UNITS LAB L100.1000 4.4-11.0 K/mm3 Normal WBC 6.5 LAB L100.1200 4.2-5.4 M/mm3 Normal RBC 4.36 LAB L100.1300 12.0-15.0 g/dl Normal HGB 12.7 LAB L100.1400 37-47 % Normal HCT 38.2 LAB L100.1500 81-99 fL Normal MCV 87.6 LAB L100.1600 27.0-32.0 pg Normal MCH 29.1 LAB L100.1700 32-36 g/gl Normal MCHC 33.2 LAB L100.1810 11.6-14.6 % Normal RDW CV 13.6 LAB L100.1820 35.1-43.9 fl Normal RDW SD 42.8 LAB L100.1900 150-450 K/mm3 Normal PLT 236 LAB L100.2000 6.2-12.0 fl Normal MPV 10.7 Performed By: #### L100.0500 #### [facility] [address] [place], [address] BASIC METABOLIC Collected: 10/09/2017 Status: F Source: FELI PROFILE (BMP) 10:[address] [facility] REPOSITORY TYPE CODE TESTS RESULT OUT OF RANGE REFERENCE UNITS LAB L501.0100 74-106 mg/dL Normal GLU 99 Result Comment: Please note revised GLUCOSE reference range effective 2017. LAB L501.1000 7-18 mg/dL Normal BUN 10 LAB L501.1100 0.55-1.02 mg/dL High CREAT,SERUM 1.07 Result Comment: The validity of the calculated GFR AND GFRAA in patients over 70 years has not been determined. Clinical correlation is essential. LAB L501.1110 >60 mL/min Normal EST GFR 60 Result Comment: Non- GFR Calc LAB L501.1115 >60 mL/min Normal EST GFR - AA 72 Result Comment: GFR Calc LAB L501.1300 10-20 RATIO Low BUN/CRE 9.3 LAB L501.2200 8.5-10.1 mg/dL Normal CA 8.9 LAB L501.5300 136-145 mmol/L Normal NA 142 LAB L501.5600 3.5-5.1 mmol/L Normal K 4.2 LAB L501.5900 98-107 mmol/L Normal CL 107 LAB L501.6100 21.0-32.0 mmol/L Normal CO2 28.0 LAB L501.6200 5-15 Normal GAP 7 Performed By: #### L500.2500 #### [facility] [address] [place], [place], [id number] LIVER PROFILE Collected: 10/09/2017 Status: F Source: FELI 10:[address] [facility] REPOSITORY Order Comment: Comments: okay to be non fasting Comments: okay to be non fasting Comments: okay to be non fasting TYPE CODE TESTS RESULT OUT OF RANGE REFERENCE UNITS LAB L501.1500 6.4-8.2 g/dL Normal T PROT 8.0 LAB L501.1800 3.2-5.0 g/dL Normal ALB 3.9 LAB L501.1950 2.2-4.2 g/dL Normal GLOB 4.1 LAB L501.4100 15-37 U/L Normal AST 15 LAB L501.4305 45-117 U/L Normal ALK P 64 LAB L501.4405 13-56 U/L Normal ALT 18 LAB L501.4600 0.20-1.00 mg/dL Normal T BILI 0.50 LAB L501.4700 0.00-0.30 mg/dL Normal D BILI 0.09 Performed By: #### L500.3400, L500.4100 #### [facility] [address] [place], [address] LIPID PROFILE Collected: 10/09/2017 Status: F Source: FELI 10:[address] [facility] REPOSITORY Order Comment: Comments: okay to be non fasting Comments: okay to be non fasting Comments: okay to be non fasting TYPE CODE TESTS RESULT OUT OF RANGE REFERENCE UNITS LAB L501.4900 200 mg/dL High CHOL 214 Result Comment: <200 mg/dL Desirable 200-240 mg/dL Borderline >240 mg/dL High Risk LAB L501.5000 mg/dL Normal TRIG 115 Result Comment: The drugs N-Acetylcysteine and Metamizole may falsely depress this assay. Serum Triglycerides Reference Interval Normal <150 mg/dL Borderline high 150 - 199 mg/dL High 200 - 499 mg/dL Very High > or = 500 mg/dL LAB L501.6400 mg/dL Normal HDL 46 Result Comment: The drugs N-Acetylcysteine and Metamizole may falsely depress this assay. Reference Range HDL <40 mg/dL Low HDL Cholesterol HDL >or= 60 mg/dL High HDL Cholesterol LAB L501.6500 0-130 mg/dL High LDL 145 LAB L501.6600 5-40 mg/dL Normal VLDL 23 Performed By: #### L500.3400, L500.4100 #### [facility] [address] [place], [address] 12 LEAD EKG PERFORMED Observed: 10/09/2017 Status: F Source: FELI BY [facility] 10:[address] [facility] REPOSITORY [facility] [address] [place] [address] 12 Lead EKG performed by [facility] 10/09/17 1021 MR#: [id number] Acct: [id number] Name: SKY MUSA Rep #: [id number] : 1975 42 From: Jyoti VALENZUELA Attending Dr: Jyoti Golden Status: DEP AMB Ordering Dr: Jyoti Golden Date: 10/09/17 Location: [facility] Sex: F C Admitted: BMS/12 Lead EKG performed by [facility] ECG Report Interpretation Sinus Rhythm - Nonspecific T-abnormality. ABNORMAL Electronically signed on 01/23/2018 at 15:47 by Killian Garza Software Version [id number] 01/23/18 1551 Date Jyoti VALENZUELA CC: Iron Ruiz Date Dictated: 10/09/17 1021 Date Transcribed: 10/09/17 1021 Emblem Cutter: KIRA Signed PULMONARY VISIT REPORT Observed: 08/12/2017 Status: F Source: [place] 2:[address] [facility] REPOSITORY [facility] [address] [place] [address] OFFICE VISIT Date of Service: 08/12/17 MR#: [id number] Acct: [id number] Name: SKY MUSA Rep #: [id number] : 1975 Provider: Man Joy MD Age/Sex: 42/F Location: [facility] [place] Status: Signed Assessment AND Plan 1. NGHIA (obstructive sleep apnea) G47.33 Plan Patient currently on BiPAP therapy and residual AHI is acceptable. Patient is not reporting any complications with therapy. Patient is reporting some improvement, but needs to do better with compliance. Stressed to the patient importance of using BiPAP 4 hours per day every day. Continue with BiPAP 14/8 cm of water and strike to improve compliance. 2. Dyspnea on exertion R06.09 Plan Patient's pulmonary function tests were grossly within normal limits. Patient did have a mild reduction in total lung capacity, which is likely secondary to body habitus. Stressed to the patient that the initiation of an exercise routine and weight loss would be helpful for both her dyspnea and obstructive apnea. Will continue with Flovent for now, but may try off of asthma medications in the future. Continue with current therapy. Encourage weight loss. Plan Detail Follow Up 6 Months [facility] M FU: Chief Complaint: Recent test results Details: Patient is a 42-year-old female, currently under the care of Dr. Ruiz, who presents for follow-up secondary to recent test results. Since last visit, patient denies any ER visits, hospitalizations or prednisone burst. Patient reports subjective improvement in her overall condition, which she attributes to the use of her BiPAP. Patient reports she has been compliant with Flovent therapy. Patient denies any issues such as thrush, hoarseness or sore throat. Patient states that she has stopped using her albuterol secondary to perceived non-benefit. Patient denies any change in exercise tolerance. Patient reports an occasional cough, but it is typically throughout the day, not at night. Patient has been initiated on BiPAP therapy. Patient is using a fullface interface and states it is taking some time to get used to, but I do feel better when I use it. Patient denies any issues with pain at the interface site, epistaxis or hoarseness. Patient does feel more refreshed during the day, but readily admits that she needs to work on using it more faithfully. Testing personally reviewed with the patient Alpha-1 (05/21/2017): MM Complete PFT (06/18/2017): Mild restrictive ventilatory defect (FVC 104%, FEV1 111%, TLC 86%, DLCO 81%) Compliance report (July 2017): Compliant 60% of days for an average of 5 hours on BiPAP 14/8 cm of water with a residual AHI of 1.1 and well-controlled leak Sleep study (05/26/2017): AHI 24.2 with good response to BiPAP 14/8 cm of water Intake Vital Signs08/12/17 Height 5 ft 8 in 08/12/17 Weight: 110.677 kg Intake Visit Reasons: 3 M FU Chief Complaint: Sleep apnea DME Vendor: MATT Accompanied by: Allergies latex Allergy (Verified 08/12/17 13:22) Rash Penicillins Allergy (Verified 08/12/17 13:22) Rash Medications Albuterol Inhaler [Ventolin Hfa] 1 - 2 puff INHALATION Q4H PRN PRN 12/15/12 [History Confirmed 08/12/17] busPIRone [Buspar] 5 mg PO BID 12/15/12 [History Confirmed 08/12/17] clonidine HCl 0.1 mg tablet 0.1 mg PO BID PRN 04/07/17 [History Confirmed 08/12/17] gabapentin 300 mg capsule PO 30 Days 04/07/17 [History Confirmed 08/12/17] omeprazole 20 mg capsule,delayed release 20 mg PO QDAY 04/07/17 [History Confirmed 08/12/17] propranolol ER 120 mg capsule,24 hr,extended release PO 30 Days 04/07/17 [History Confirmed 08/12/17] sertraline 100 mg tablet PO 30 Days 04/07/17 [History Confirmed 08/12/17] sumatriptan 20 mg/actuation nasal spray INTRANASAL 30 Days 04/07/17 [History Confirmed 08/12/17] zonisamide 50 mg capsule 50 mg PO Q12H 04/07/17 [History Confirmed 08/12/17] simvastatin 20 mg tablet 20 mg PO QPM #30 tab 04/08/17 [Rx Confirmed 08/12/17] PFS Medical History Status post placement of implantable loop recorder (Chronic 02/13/14) Obesity (BMI 30-39.9) (Chronic) Hypercholesteremia (Chronic) Vasovagal syncope (Chronic) Asthma (Chronic) Hypertension (Chronic) Back pain (Chronic) Depression (Chronic) GERD (gastroesophageal reflux disease) (Chronic) 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) Seizure (Chronic) Surgical History History of (Chronic) History of hysterectomy (Chronic) ORIF right ankle (Chronic) Family History Mother Hypertension Brother Hypertension Diabetes Grandfather CAD (coronary artery disease) Grandmother CAD (coronary artery disease) Social History Smoking Status: Never smoker second hand exposure: Yes substance use type: does not use Review of Systems Const CONSTITUTIONAL: Positive fatigue; negative anorexia, body ache, chills, daytime sleepiness, fever(s), night sweats, oral thrush, stops breathing during sleep, weight loss, sleeping in chair, weight loss, weight gain, frequent colds, seasonal allergies, other, headache(s) or orthopnea EETM Ear Nose Throat Mouth: Positive hearing normal; negative hard of hearing, hoarseness, dry mouth in morning, change in vision, itchy eyes, eye pain, swallowing Difficulty, ear pain, nose bleed, headache(s), mouth pain, nasal congestion, nasal discharge, post nasal drip, sinus pain, sinus pressure, sore throat or other Cardio Cardiovascular: Negative chest pain, chest pain at rest, chest pain with activity, irregular heart rhythm, edema, shortness of breath when lying down, palpitations, murmur or other Resp Respiratory: Positive as per HPI and shortness of breath shortness of breath: Positive with activity; negative pain with cough, wheezing, chest congestion, cough, chest tightness, pain on inspiration, inhalers, increase use of rescue inhalers, snoring, apnea or other (heavy chest) Gastro Gastrointestional: Negative bloody stools, change in appetite, difficulty swallowing, reflux, hematemesis, melena stool, loose stool, constipation or other Genitourinary: Negative blood in urine, nocturia, pain with urination or other Musc Musculoskeletal: Negative body pain, back pain, neck pain or other Skin/Breast Skin/Breast: Negative dry skin, itching, rash, unusual bruising, breast lump or other Neuro Neurological: Negative restless legs, confusion, weakness or other Psych Psychocological: Negative abnormal sleep pattern, anxiety, thoughts of hurting self/others, hopelessness or other Lymph Lymphatic: Negative easy bleeding, easy bruising, swollen lymph nodes or other Exam Const Constitutional: Positive conversant, cooperative, in no acute respiratory distress, healthy appearing, well developed, well nourished, good hygiene, obese and appears older than stated age Head Head: Positive normocephalic and atraumatic; negative cyanosis of lips/distal nose, microcephalic or macrocephalic Eyes Eye: Positive clear conjunctiva; negative nystagmus or scleral abnormality Ears Ear: Positive hearing normal and external ears normal; negative hard of hearing Nose Nose: Positive external nose normal, septum normal and no nasal discharge; negative epistaxis or nasal polyp Mouth Mouth: Positive oral mucosae normal, no lesions, good dentition and crowded posterior oropharynx; negative post nasal drip, malodorous breath or oral thrush present Mallampati Score: III: Mallampati Score Neck Neck: Positive normal visual inspection, thick neck, full ROM, trachea midline and female neck greater than 37 cm (15 in); negative lymphadenopathy or JVD Chest Wall Chest: Positive normal inspection of the chest; negative increased A/P diameter, symmetric chest movement, crepitus or tenderness Resp lung sounds: Positive clear to auscultation, good air exchange, normal expiratory time and normal respiratory effort; negative wheezes, rhonchi, rales, wheeze present on forced exhalation or dullness to percussion Cardio Cardiac: Positive regular rate, regular rhythm, S1 normal and S2 normal; negative murmur, rub or gallop GI GI: Positive obese, normal to inspection and normal bowel sounds; negative distended or ascites Genitourinary: Positive deferred Musc Musculoskeletal: Positive steady gait and ROM normal; negative using an assistive device for ambulation, kyphosis or scoliosis Skin Pulmonary Skin Exam: Positive intact; negative rash, lesion, ulcers, erythema or dermal atrophy Pulses Pulse: Yes radial pulses present Extremities Extremities: Yes capillary refill normal, No clubbing, No cyanosis, No edema Neuro Neurologic: Yes conversant, Yes no focal neuro deficits, Yes normal concentration, Yes understands questions, Yes cooperative, Yes normal cognition, Yes normal coordination Lymph Lymphatic: No lymphadenopathy Psych Appearance: Positive grossly normal Mental Status: Positive mental status grossly normal Mood: Positive congruent mood Affect: Positive normal affect Coding Level of Care Code Off vis,est,level 3 Diagnoses NGHIA (obstructive sleep apnea) G47.33 Dyspnea on exertion R06.09 08/12/17 1416 <Electronically signed by Man Joy MD> Date Man Joy MD Cosigner Signature: Date (if applicable) CC: Iron CERON Observed: 06/24/2017 Status: COMPLETED Source: [place] 12:00 AM [facility] REPOSITORY Letter Text Frederic Robb MD [facility] [address] [place] [address] Sky Musa June 24, 2017 Sky Musa [address] [facility] [id number] Dear Ms. Musa, It was noted that you did not keep your scheduled appointment on 06/24/17. It is important to contact the office in advance if you are unable to keep your appointment so that it is available for other patients. Your medical care is important to us. Please call our office to reschedule an appointment. Sincerely, Frederic Robb MD PULMONARY FUNCTION Observed: 06/19/2017 Status: F Source: [place] TEST 8:[address] [facility] REPOSITORY [facility] Pulmonary Services/Neurology [address] [place] [address] MR#: [id number] Acct: [id number] Name: SKY MUSA Rep #: [id number] : 1975 41 From: Daniel Young DO Referring Dr: Rosie Gusman NP Status: REG CLI Ordering Dr: Date: Location: N Sex: F C INTRODUCTION: The patient is a 41-year-old female currently under the care of myself the presents for pulmonary function testing secondary to a diagnosis of dyspnea. Respiratory therapy reports good patient effort. Bronchodilators were used during testing. INTERPRETATION: Forced expiration spirometry demonstrates no evidence of a large airways obstructive ventilatory defect. There was no significant response to aerosolized bronchodilators, based upon strict ATS criteria. Spirograms are of good quality and plateau normally. The respiratory flow volume loop appears normal. Body plethysmography was performed and reveals a decreased TLC to 5.04 L, 86% predicted, indicative of a mild restrictive ventilatory defect. The remainder of the lung volumes were symmetrically reduced. Diffusing capacity by single breath CO is within normal limits at 81% of predicted. IMPRESSION: These pulmonary function studies demonstrate the presence of a mild restrictive ventilatory defect. There are no previous pulmonary function studies available for comparison. 06/19/17830 <Electronically signed by Daniel Young DO> Date Daniel Young DO CC: Iron Gusman Date Dictated: 06/19/17827 Date Transcribed: 06/19/17827 Emblem Cutter: TONI Signed PULMONARY VISIT REPORT Observed: 06/17/2017 Status: F Source: [place] 9:[address] [facility] REPOSITORY [facility] [address] [place] [address] OFFICE VISIT Date of Service: 06/17/17 MR#: [id number] Acct: [id number] Name: SKY MUSA Rep #: [id number] : 1975 Provider: Rosie Gusman Age/Sex: 41/F Location: [facility] Status: Signed Assessment AND Plan 1. NGHIA (obstructive sleep apnea) G47.33 Status Chronic Plan She is using and benefiting from current Pap therapy. She has been encouraged to contact the office if she develops any difficulties with continued acclamation. No indication for titration study at this time. Keep previously scheduled routine follow-up with Dr. Joy on August 12, 2017. She has been encouraged to contact the office if she needs an acute visit has any difficulties in the meantime. 2. Mild intermittent asthma, unspecified whether complicated J45.20 Status Chronic Plan PFTs pending. She has been encouraged to utilize her rescue inhaler prior to exercise. She has been asked to contact the office and let us know if she continues to have chest tightness after using her rescue inhaler. Will hold off on stepping up therapy until PFTs can be obtained. Consider placing her on a maintenance medication given her frequent symptoms of wheezing and chest tightness. Follow-up with Dr. Joy on August as previously scheduled. 3. LANE (dyspnea on exertion) R06.09 Status Chronic Plan Stable. Anticipate that this will improve as she acclimates to her Pap therapy. No further testing at this time, PFTs pending. Follow-up with Dr. Joy as previously scheduled. HPI 6 wk FU: Chief Complaint: Sleep apnea HPI Comments Details: This patient presents to the office today to follow- up after completing a titration study. She is ambulatory, currently on room air and accompanied today by her . She has not been seen in the ED or urgent care for any breathing problems since her last office visit. She has not been prescribed antibiotics or prednisone for any respiratory illnesses. She reports that she has been on her BiPAP for 1 week. She is currently able to wear the device 4 hours per night. She is tolerating the pressure well. She does report that she is acclimating to the full facemask. She denies any difficulties with dry mouth, snoring through the mask or air leaks. She has noticed that she feels more rested when wearing the mask/pressure support 4 hours nightly. A titration study completed on May 26, 2017 shows that the patient should be treated with BiPAP of 14/8 cm of water per recommendations of the neurologist. Reviewing the therapy device titration chart, it also shows that the patient was controlled at a bilevel of 9/4. He continues to experience a dry cough daily. She denies any sputum production or hemoptysis. She also notices occasional wheezing and chest tightness. The chest tightness is most prevalent when she walks for exercise, which she does nightly. She has not used her rescue inhaler in several months. She is not currently on any maintenance medications for her asthma. She denies any palpitations. She denies any fever, chills or body aches. See complete review of systems. Intake Vital Signs06/17/17 Height 5 ft 8 in 06/17/17 Weight: 242 lb Intake Visit Reasons: 6 wk FU Chief Complaint: Sleep apnea concern DME Vendor: MATT Accompanied by: Allergies latex Allergy (Verified 06/17/17 08:31) Rash Penicillins Allergy (Verified 06/17/17 08:31) Rash Medications Albuterol Inhaler [Ventolin Hfa] 1 - 2 puff INHALATION Q4H PRN PRN 12/15/12 [History Confirmed 06/17/17] busPIRone [Buspar] 5 mg PO BID 12/15/12 [History Confirmed 06/17/17] clonidine HCl 0.1 mg tablet 0.1 mg PO BID PRN 04/07/17 [History Confirmed 06/17/17] gabapentin 300 mg capsule PO 30 Days 04/07/17 [History Confirmed 06/17/17] omeprazole 20 mg capsule,delayed release 20 mg PO QDAY 04/07/17 [History Confirmed 06/17/17] propranolol ER 120 mg capsule,24 hr,extended release PO 30 Days 04/07/17 [History Confirmed 06/17/17] sertraline 100 mg tablet PO 30 Days 04/07/17 [History Confirmed 06/17/17] sumatriptan 20 mg/actuation nasal spray INTRANASAL 30 Days 04/07/17 [History Confirmed 06/17/17] zonisamide 50 mg capsule 50 mg PO Q12H 04/07/17 [History Confirmed 06/17/17] simvastatin 20 mg tablet 20 mg PO QPM #30 tab 04/08/17 [Rx Confirmed 06/17/17] [facility] Medical History Status post placement of implantable loop recorder (Chronic 02/13/14) Obesity (BMI 30-39.9) (Chronic) Hypercholesteremia (Chronic) Vasovagal syncope (Chronic) Asthma (Chronic) Hypertension (Chronic) Back pain (Chronic) Depression (Chronic) GERD (gastroesophageal reflux disease) (Chronic) 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) Seizure (Chronic) Surgical History History of (Chronic) History of hysterectomy (Chronic) ORIF right ankle (Chronic) Family History Mother Hypertension Brother Hypertension Diabetes Grandfather CAD (coronary artery disease) Grandmother CAD (coronary artery disease) Social History Smoking Status: Never smoker second hand exposure: Yes substance use type: does not use Review of Systems Const CONSTITUTIONAL: Positive fatigue; negative anorexia, body ache, chills, daytime sleepiness, fever(s), night sweats, oral thrush, stops breathing during sleep, weight loss, sleeping in chair, weight loss, weight gain, frequent colds, seasonal allergies, other, headache(s) or orthopnea EETM Ear Nose Throat Mouth: Negative hard of hearing, hearing normal, hoarseness, dry mouth in morning, change in vision, itchy eyes, eye pain, swallowing Difficulty, ear pain, nose bleed, headache(s), mouth pain, nasal congestion, nasal discharge, post nasal drip, sinus pain, sinus pressure, sore throat or other Cardio Cardiovascular: Negative chest pain, chest pain at rest, chest pain with activity, irregular heart rhythm, edema, shortness of breath when lying down, palpitations, murmur or other Resp Respiratory: Positive as per HPI, shortness of breath shortness of breath: Positive with activity and cough cough: Positive non-productive; negative pain with cough, wheezing, chest congestion, chest tightness, pain on inspiration, inhalers, increase use of rescue inhalers, snoring, apnea or other Gastro Gastrointestional: Negative bloody stools, change in appetite, difficulty swallowing, reflux, hematemesis, melena stool, loose stool, constipation or other Genitourinary: Negative blood in urine, nocturia, pain with urination or other Musc Musculoskeletal: Negative body pain, back pain, neck pain or other Skin/Breast Skin/Breast: Negative dry skin, itching, rash, unusual bruising, breast lump or other Neuro Neurological: Negative restless legs, confusion, weakness or other Psych Psychocological: Negative abnormal sleep pattern, anxiety, thoughts of hurting self/others, hopelessness or other Lymph Lymphatic: Negative easy bleeding, easy bruising, swollen lymph nodes or other Exam Const Constitutional: Positive conversant, cooperative, in no acute respiratory distress, healthy appearing, well developed, well nourished, good hygiene and obese Head Head: Positive normocephalic and atraumatic; negative cyanosis of lips/distal nose Eyes Eye: Positive clear conjunctiva and nystagmus; negative scleral abnormality Ears Ear: Positive external ears normal; negative hard of hearing or hearing normal Nose Nose: Positive external nose normal and no nasal discharge; negative epistaxis Mouth Mouth: Positive crowded posterior oropharynx; negative post nasal drip Mallampati Score: III: Mallampati Score Neck Neck: Positive normal visual inspection, full ROM and trachea midline; negative lymphadenopathy, JVD or tender Chest Wall Chest: Positive normal inspection of the chest and symmetric chest movement; negative increased A/P diameter Resp lung sounds: Positive clear to auscultation, good air exchange, normal expiratory time and normal respiratory effort; negative diminished, wheezes, rhonchi, rales, dullness to percussion or wheeze present on forced exhalation Cardio Cardiac: Positive regular rate, regular rhythm, S1 normal and S2 normal; negative murmur GI GI: Positive normal to inspection, normal bowel sounds and obese; negative distended Genitourinary: Positive deferred Musc Musculoskeletal: Positive steady gait and ROM normal; negative kyphosis or scoliosis Skin Pulmonary Skin Exam: Positive intact; negative rash, lesion, ulcers, erythema, scaly or dermal atrophy Pulses Pulse: Yes pulses normal x4 extremities Extremities Extremities: Yes capillary refill normal, No clubbing, No cyanosis, No edema, No stasis dermatitis Neuro Neurologic: Yes conversant, Yes no focal neuro deficits, Yes cooperative, Yes normal cognition, Yes normal coordination, Yes normal concentration, Yes understands questions Lymph Lymphatic: No lymphadenopathy, No tenderness, No cervical adenopathy, No axillary adenopathy Psych Appearance: Positive grossly normal, eye contact and well kempt Mental Status: Positive mental status grossly normal Mood: Positive congruent mood Affect: Positive normal affect Coding Level of Care Code Off vis,est,level 3 Diagnoses NGHIA (obstructive sleep apnea) G47.33 Mild intermittent asthma, unspecified whether complicated J45.20 Asthma severity: mild Asthma persistence: intermittent Asthma complication type: unspecified LANE (dyspnea on exertion) R06.09 06/17/17 0905 <Electronically signed by Rosie SHIRLEY> Date Rosie SHIRLEY Cosigner Signature: Date (if applicable) CC: Iron Ruiz STRESS TEST ECHO W/O Observed: 05/23/2017 Status: F Source: [place] CONTRAST 3:[address] [facility] REPOSITORY [facility] Cardiovascular Services [address] [place] [id number] Stress Test Echo w/o Contrast MR#: [id number] Acct: [id number] Name: SKY MUSA Rep #: [id number] : 1975 41 From: Killian Garza MD Primary Care: Iron Ruiz Status: REG CLI Ordering Dr: Killian Garza MD Sex: F C Reason For Study: Chest Pain, Dyspnea on Exertion Stress Results Protocol: Man Protocol Maximum Predicted HR: 179 bpm Target HR: 152 bpm% Max imum Predicted HR: 85 % DurationHeart Rate Stage (mm:ss) (bpm) BPCom ment Baseline 55 118/72 No Chest Pain Man Protocol Stage I 3:00 11 7 142/70No Chest Pain; Mild Dyspnea Man Protocol Stage II 3:00 13 4 162/76No Chest Pain; Moderate Dyspnea Man Protocol Stage III 1:00 15 3 / No Chest Pain; Moderate Dyspnea Recovery 82 122/80 No Chest Pain Stress Duration: 7:00 mm:ss Maximum Stress HR: 153 bpmM ETS: 10 Baseline Echocardiogram Findings The estimated ejection fraction is 65 %. Stress Echo Wall motion Data Resting WMIntermediate WMStress WM Resting Wall Motion Wall Motion Stress No regional wall motion No regional wall motion abnormalities noted. abnormalities noted. EKG Data Normal intervals are noted. The patient exercised according to the regular Man protocol for a total duration of 7:00. The maximum heart rate attained was 155 beats per minute. This was 86% of maximum predicted heart rate. The patient exercised into stage 3 of the Man protocol. During stress, there were no ST or T wave changes noted to suggest ischemia. No clinical angina was noted. Interpretation Summary The estimated ejection fraction is 65 %. Normal adequate treadmill echocardiogram. Negative for ischemia by EKG and echocardiographic criteria. No anginal symptoms noted. Rare PVCs noted. Appropriate blood pressure response to exercise. Average exercise capacity for age. Test terminated due to dyspnea. Final LVEF of 75%. Ordering Physician: Killian Garza Referring Physician: Killian Garza Performed By: Fernanda Canchola RDCS 05/23/17 1553 Date Killian Garza MD CC: Iron Ruiz; Killian Garza MD Date Dictated: 05/23/17 1250 Date Transcribed: 05/23/17 7699 Emblem Cutter: Signed PROGRESS Observed: 05/20/2017 Status: COMPLETED Source: [place] [facility] REPOSIT[facility] HNO ID: [id number] Author: Latasha (Pt) Evelio Service: (none) Author Type: Physical Therapist Type: Progress Notes Filed: 05/20/2017 12:15 PM Note Text: [facility] PHYSICAL THERAPY DISCONTINUANCE OF CARE Plan of Care Period: Start of Care Date: 03/13/17 Last Visit Date:03/20/2017 Therapy Program: Patient did not return for follow up care as planned. Please refer to last visit note for interventions provided for this episode of care. Assessment: Unable to formally assess goal achievement due to non-compliance with therapy plan of care. Reason for Discontinuation of Care: Patient has not returned to therapy or scheduled additional follow-up appointments. Latasha Koroma, PT PULMONARY VISIT REPORT Observed: 05/07/2017 Status: F Source: [place] 4:[address] [facility] REPOSITORY [facility] [place] [address] [facility] [place] [address] OFFICE VISIT Date of Service: 05/07/17 MR#: [id number] Acct: [id number] Name: SKY MUSA Rep #: [id number] : 1975 Provider: Rosie Gusman Age/Sex: 41/F Location: [facility] Status: Signed Assessment AND Plan 1. NGHIA (obstructive sleep apnea) G47.33 Status Chronic Plan Titration study ordered. Lengthy discussion about the pathophysiology of obstructive sleep apnea, as well as the risks of untreated sleep apnea and the benefits of treatment. Plan for the patient to follow-up with myself in approximately 6 weeks. Then plan for her to follow-up with Dr. Joy in approximately 3 months. Initial goal will be for her to wear the device 4 hours nightly, overall goal will be that she wears a device any time spent sleeping, including naps. She conveys understanding. Orders Orders: 2. Mild intermittent asthma, unspecified whether complicated J45.20 Status Chronic Plan Plan to evaluate for possible COPD in addition to her asthma with a formal complete pulmonary function test. Will discuss test results either at her 6 week follow-up or at her 3 month follow-up. No change in maintenance medications at this time. Also planning to complete a simple alpha-1 antitrypsin deficiency screening in the office today, given her significant family history of her COPD. She is not currently smoking but this would be good information to know in case she feels the desire to resume that habit. 3. Obesity (BMI 30-39.9) E66.9 Status Chronic Plan Continue to encourage weight loss. Anticipate that after the sleep apnea is controlled she will feel more rested and have the ability to move more. Hopefully, weight loss will also follow. Follow-up with Dr. Joy in 3 months. [address] (dyspnea on exertion) R06.09 Orders Orders: Plan Detail Follow Up 6 Weeks (CSM) 3 Months (BWA) HPI Sleep concern: Chief Complaint: Sleep apnea concern HPI Comments Details: Pt quit smoking about 2 yrs ago. Smoked .5ppd x 5 yrs. Uses ProAir PRN, every once in a while. This patient presents the office today for initial consultation to review recent results of a polysomnogram. She is ambulatory and currently on room air. She is accompanied today by her . She admits to significant daytime hypersomnia. She does not feel rested upon arising in the morning. She takes a daily 2 hour nap. She reportedly snores. She has frequent morning headaches. She has at least 10 episodes of nocturia nightly. She also admits to falling asleep easily as a passenger in a car door while watching TV. She denies any cough or wheezing. She does report some chest tightness at times. She also reports shortness of breath on exertion and ankle edema. She denies any sputum production or hemoptysis. She does report having asthma. This is typically handled by her primary care provider. She is not currently on any maintenance medications for her asthma. She does have an albuterol rescue inhaler which she uses rarely, it may even be . Currently, she is on disability. 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 Her family history is significant for her father having COPD, her maternal grandfather had COPD and her paternal great grandmother had COPD. Her mother has hypertension and hyperlipidemia Polysomnogram completed on April 23, 2017 shows an overall AHI of 5.2 events per hour, however events per hour was significantly increased during the REM stage of sleep and also in the supine position 31.2 events per hour/27.7 events per hour. Impression is mild obstructive sleep apnea that becomes severe in the supine position and REM stage of sleep. A CPAP titration study has been recommended. Intake Vital Signs05/07/17 Height 5 ft 8 in 05/07/17 Weight: 241 lb Intake Visit Reasons: Sleep problems Coil Tier Required: No Allergies latex Allergy (Verified 05/07/17 08:00) Rash Penicillins Allergy (Verified 05/07/17 08:00) Rash Medications Albuterol Inhaler [Ventolin Hfa] 1 - 2 puff INHALATION Q4H PRN PRN 12/15/12 [History Confirmed 05/07/17] busPIRone [Buspar] 5 mg PO BID 12/15/12 [History Confirmed 05/07/17] clonidine HCl 0.1 mg tablet 0.1 mg PO BID PRN 04/07/17 [History Confirmed 05/07/17] gabapentin 300 mg capsule PO 30 Days 04/07/17 [History Confirmed 05/07/17] omeprazole 20 mg capsule,delayed release 20 mg PO QDAY 04/07/17 [History Confirmed 05/07/17] propranolol ER 120 mg capsule,24 hr,extended release PO 30 Days 04/07/17 [History Confirmed 05/07/17] sertraline 100 mg tablet PO 30 Days 04/07/17 [History Confirmed 05/07/17] sumatriptan 20 mg/actuation nasal spray INTRANASAL 30 Days 04/07/17 [History Confirmed 05/07/17] zonisamide 50 mg capsule 50 mg PO Q12H 04/07/17 [History Confirmed 05/07/17] simvastatin 20 mg tablet 20 mg PO QPM #30 tab 04/08/17 [Rx Confirmed 05/07/17] [facility] Medical History Status post placement of implantable loop recorder (Chronic 02/13/14) Obesity (BMI 30-39.9) (Chronic) Hypercholesteremia (Chronic) Vasovagal syncope (Chronic) Asthma (Chronic) Hypertension (Chronic) Back pain (Chronic) Depression (Chronic) GERD (gastroesophageal reflux disease) (Chronic) 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) Seizure (Chronic) Surgical History History of (Chronic) History of hysterectomy (Chronic) ORIF right ankle (Chronic) Family History Mother Hypertension Brother Hypertension Diabetes Grandfather CAD (coronary artery disease) Grandmother CAD (coronary artery disease) Social History Smoking Status: Never smoker second hand exposure: Yes substance use type: does not use Review of Systems Const CONSTITUTIONAL: Positive stops breathing during sleep, sleeping in chair, fatigue and headache(s); negative anorexia, body ache, chills, daytime sleepiness, fever(s), night sweats, oral thrush, weight loss, weight loss, weight gain, frequent colds, seasonal allergies, other or orthopnea EETM Ear Nose Throat Mouth: Positive hearing normal, dry mouth in morning, headache(s) and post nasal drip; negative hard of hearing, hoarseness, change in vision, itchy eyes, eye pain, swallowing Difficulty, ear pain, nose bleed, mouth pain, nasal congestion, nasal discharge, sinus pain, sinus pressure, sore throat or other Cardio Cardiovascular: Positive chest pain; negative chest pain at rest, chest pain with activity, irregular heart rhythm, edema, shortness of breath when lying down, palpitations, murmur or other Resp Respiratory: Positive as per HPI; negative shortness of breath, pain with cough, wheezing, chest congestion, cough, chest tightness, pain on inspiration, inhalers, increase use of rescue inhalers, snoring, apnea or other Gastro Gastrointestional: Negative bloody stools, change in appetite, difficulty swallowing, reflux, hematemesis, melena stool, loose stool, constipation or other Genitourinary: Negative blood in urine, nocturia, pain with urination or other Musc Musculoskeletal: Negative body pain, back pain, neck pain or other Skin/Breast Skin/Breast: Negative dry skin, itching, rash, unusual bruising, breast lump or other Neuro Neurological: Negative restless legs, confusion, weakness or other Psych Psychocological: Negative abnormal sleep pattern, anxiety, thoughts of hurting self/others, hopelessness or other Lymph Lymphatic: Negative easy bleeding, easy bruising, swollen lymph nodes or other Exam Const Constitutional: Positive conversant, cooperative, in no acute respiratory distress, healthy appearing, well developed, well nourished, good hygiene and obese Head Head: Positive normocephalic and atraumatic; negative cyanosis of lips/distal nose Eyes Eye: Positive clear conjunctiva and nystagmus; negative scleral abnormality Ears Ear: Positive hearing normal and external ears normal; negative hard of hearing Nose Nose: Positive external nose normal and septum normal; negative epistaxis Mouth Mouth: Positive post nasal drip, oral mucosae normal, no lesions, good dentition and crowded posterior oropharynx; negative malodorous breath or oral thrush present Mallampati Score: III: Mallampati Score Neck Neck: Positive normal visual inspection, full ROM, trachea midline, thick neck and female neck greater than 37 cm (15 in); negative lymphadenopathy, JVD or tender Chest Wall Chest: Positive normal inspection of the chest and symmetric chest movement; negative increased A/P diameter Resp lung sounds: Positive clear to auscultation, good air exchange, normal expiratory time and normal respiratory effort; negative diminished, wheezes, rhonchi, rales, dullness to percussion or wheeze present on forced exhalation Cardio Cardiac: Positive regular rate, regular rhythm, S1 normal and S2 normal; negative murmur GI GI: Positive normal to inspection, normal bowel sounds and obese; negative distended Genitourinary: Positive deferred Musc Musculoskeletal: Positive steady gait and ROM normal; negative kyphosis or scoliosis Skin Pulmonary Skin Exam: Positive intact; negative rash, lesion, ulcers, erythema, scaly or dermal atrophy Pulses Pulse: Yes pulses normal x4 extremities Extremities Extremities: Yes capillary refill normal, No clubbing, No cyanosis, No edema, No stasis dermatitis Neuro Neurologic: Yes conversant, Yes no focal neuro deficits, Yes cooperative, Yes normal cognition, Yes normal coordination, Yes normal concentration, Yes understands questions Lymph Lymphatic: No lymphadenopathy, No tenderness, No cervical adenopathy, No axillary adenopathy Psych Appearance: Positive grossly normal, eye contact and well kempt Mental Status: Positive mental status grossly normal Mood: Positive congruent mood Affect: Positive normal affect Coding Level of Care Code Off vis,new,level 4 Diagnoses NGHIA (obstructive sleep apnea) G47.33 Mild intermittent asthma, unspecified whether complicated J45.20 Asthma severity: mild Asthma persistence: intermittent Asthma complication type: unspecified Obesity (BMI 30-39.9) E66.9 [address] (dyspnea on exertion) R06.09 05/07/17 1642 <Electronically signed by Rosie SHIRLEY> Date Rosie SHIRLEY Cosigner Signature: Date (if applicable) CC: Iron Ruiz CARDIOLOGY VISIT Observed: 05/02/2017 Status: F Source: [place] RE[place] 2:[address] [facility] REPOSITORY [facility] [address] [place], [place] [address]. [address] [place] [address] OFFICE VISIT Date of Service: 04/08/17 MR#: [id number] Acct: [id number] Name: SKY MUSA Rep #: [id number] : 1975 Provider: Killian Garza MD Age/Sex: 41/F Location: [facility] Status: Signed HPI HPI Details: SKY MUSA, is a 41 F who presents to the office today for Intake Vital Signs04/08/17 Body Mass Index (BMI) 36.8 04/08/17 Blood Pressure 104/60 04/08/17 Height 5 ft 8 in Intake Visit Reasons: CP (LILLY RUIZ) MCR AND ELBA Allergies latex Allergy (Verified 04/08/17 11:31) Rash Penicillins Allergy (Verified 04/08/17 11:31) Rash Medications Albuterol Inhaler [Ventolin Hfa] 1 - 2 puff INHALATION Q4H PRN PRN 12/15/12 [History Confirmed 04/07/17] busPIRone [Buspar] 5 mg PO BID 12/15/12 [History Confirmed 04/07/17] clonidine HCl 0.1 mg tablet 0.1 mg PO BID PRN 04/07/17 [History Confirmed 04/07/17] gabapentin 300 mg capsule PO 30 Days 04/07/17 [History Confirmed 04/07/17] omeprazole 20 mg capsule,delayed release 20 mg PO QDAY 04/07/17 [History Confirmed 04/07/17] propranolol ER 120 mg capsule,24 hr,extended release PO 30 Days 04/07/17 [History Confirmed 04/07/17] sertraline 100 mg tablet PO 30 Days 04/07/17 [History Confirmed 04/07/17] sumatriptan 20 mg/actuation nasal spray INTRANASAL 30 Days 04/07/17 [History Confirmed 04/07/17] zonisamide 50 mg capsule 50 mg PO Q12H 04/07/17 [History Confirmed 04/07/17] simvastatin 20 mg tablet 20 mg PO QPM #30 tab 04/08/17 [Rx Confirmed 04/08/17] PFS Medical History Status post placement of implantable loop recorder (Chronic 02/13/14) Obesity (BMI 30-39.9) (Chronic) Hypercholesteremia (Chronic) Vasovagal syncope (Chronic) Asthma (Chronic) Hypertension (Chronic) Back pain (Chronic) Depression (Chronic) GERD (gastroesophageal reflux disease) (Chronic) 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) Seizure (Chronic) Surgical History History of (Chronic) History of hysterectomy (Chronic) ORIF right ankle (Chronic) Family History Mother Hypertension Brother Hypertension Diabetes Grandfather CAD (coronary artery disease) Grandmother CAD (coronary artery disease) Social History Smoking Status: Never smoker ROS Const Const: Positive for fatigue and weakness; negative for difficulty sleeping, frequent falls, headache(s) or excessive sweating Eyes Eyes: Negative for loss of peripheral vision, transient loss of vision, blurry vision or double vision ENT ENT: Negative for headache(s), dizziness, Nosebleed/epistaxis or balance problems Cardio Chest Pain: Yes Frequency: daily Character: dull (Feels like someome is punching me) Onset: at rest Location: mid sternal, left chest Duration: minutes, hours Edema: None Muscle aches with walking: None Resp Respiratory: Positive for SOB with activity; negative for SOB orthopnea\SOB lying down, paroxysmal nocturnal dyspnea or SOB at rest Additional Details: STOP-BANG Assessment: 1. Do you snore? [] 2. Are you frequently tired during the day? [y] 3. Have you been observed gasping or choking while asleep? [y] 4. Do you have high blood pressure? [y] 5. BMI - greater than 35kg/m2? [y] 6. Age - over 50 years old? [] 7. Neck Circumference - greater than 37 cm for females or 40 cm for males? [] 8. Gender - male? [] Total STOP-BANG score = [] which indicates [y] risk for obstructive sleep apnea (yes to 3 or more questions = high risk of sleep apnea). GI GI: Negative nausea or heartburn : Negative for hematuria Musc Musc: Negative for muscle aches/ myalgia, muscle weakness, joint pain or balance problems Skin Skin: Negative non-healing lesions, unusual bruising or rash Neuro Neuro: Positive for weakness; negative for frequent falls, blurry vision, headache(s), dizziness, lightheadedness, orthostatic symptoms or double vision Zack Hematologic/Lymphatic: Negative for easy bruising Endo Endo: Positive for fatigue; negative for excessive sweating or increased thirst/drinking Psych Psych: Negative for anxiety or depression Allergy Allergy/Immunology: Negative for hives, Negative for rash Assessment AND Plan Orders Orders: Stress Test Echo w/o Contrast 04/08/17 E66.9, E78.00, I10, J45.909, R06.09, R06.89, R07.9, R40.0, R53.83, R55, Z95.818 Medications New: Plan Detail Follow Up 6 Months (Greg) Coding Level of Care Code Off vis,est,level 3 Coding Level of Care Code Off vis,est,level 3 05/02/17 1420 <Electronically signed by Killian Garza MD> Date Killian Garza MD Cosigner Signature: Date (if applicable) CC: OFFICE VISIT REPORT Observed: 05/02/2017 Status: F Source: [place] 2:07 PM [facility] [address] [address] OFFICE VISIT Date of Service: 04/11/17 MR#: [id number] Acct: [id number] Patient: SKY MUSA Rep #: [id number] : 1975 Provider: Dionna Carter Age/Sex: 41/F Location: [facility] Status: Signed Comments Summary Comments: Implantable Loop Recorder Interrogation: New enrollee from [facility]. Interrogation shows no pt activated symptoms, no tachy, no pauses, no nino and no AT/AF episodes since 02/26. Battery good. No parameter changes made. Counters cleared. Put in request for remote [facility] transmission transfer from [facility]. Next f/u appt scheduled for in 3 mos. Device Device Date Interviewed: 04/11/17 Follow-up Location: in office Interview Reason: routine follow up Family Services Manager: [employer] Name: Reveal LinQ Model: [id number] Serial #: [id number] Implant Date: 02/23/14 Year(s): 3 Implant Physician: Dr Lopez/[facility] Patient Characteristics Patient Substrate: Syncope Underlying rhythm: Sinus rhythm Device Characteristics Type: Implantable loop recorder Remote Follow-Up: [facility] Billing Codes ILR Device Interrogate: Yes Assessment AND Plan Problems 1. Status post placement of implantable loop recorder Z95.818 medtronic Reveal LINQ 2. Vasovagal syncope R55 3. Chest pain R07.9 4. Dyspnea on exertion R06.09 5. Fatigue R53.83 04/17/17 1006 <Electronically signed by Dionna Carter > Date Dionna Carter 05/02/17 1407<Electronically signed by Killian Garza MD> Cosigner Signature: Date (if applicable) Killian Garza MD CC: ECHOCARDIOGRAM COMPLETE Observed: 04/24/2017 Status: F Source: [place] 1:[address] [facility] REPOSITORY [facility] Cardiovascular Services [address] [address] Echo Complete 04/24/17 1300 MR#: [id number] Acct: [id number] Name: SKY MUSA Rep #: [id number] : 1975 41 From: Killian Garza MD Attending Dr: Killian Garza MD Status: REG CLI Ordering Dr: Killian Garza MD Date: 04/24/17 Location: [facility] Sex: F C Admitted: Reason For Study: DYSPNEA Procedure This was a 2D Doppler, Color Flow transthoracic echocardiogram. Exam performed in department. Left Ventricle Normal size and thickness. The estimated ejection fraction is 65 %. Normal diastology for age. No regional wall motion abnormalities noted. Right Ventricle Mildly dilated right ventricle. Normal systolic function. Atria Normal left atrium. Normal right atrium. Normal atrial septum. Mitral Valve The mitral valve is structurally normal. No prolapse or stenosis seen. Tricuspid Valve Normal tricuspid valve. Trivial tricuspid valve insufficiency. Right ventricular systolic pressure estimated to be 21 mmHg. Aortic Valve Normal aortic valve. Trisinus/trileaflet aortic valve. Pulmonic Valve Normal pulmonic valve. Trivial pulmonic valve insufficiency. Great Vessels Normal aortic root. Normal arch. Normal inferior vena cava. Inferior vena cava collapse with sniff. Pericardium/Pleural No pericardial effusion. MMode/2D Measurements AND Calculations LVIDd: 4.0 cm IVSd: 0.82 cm Ao root diam: 3.0 cm LVIDs: 2.9 cm LVPWd: 0.83 cm LA dimension: 3.4 cm RVDd: 2.9 cm FS: 28.0 % LAV(MOD-bp): 42.1 ml EDV(MOD-sp4): 126.9 ml EDV(MOD-sp2): 92.0 ml LAV(MOD-bp) Indexed: 19.1 ml/m2 ESV(MOD-sp4): 54.1 ml EF(MOD-sp2): 65.2 % LAV(MOD-sp2): 45.0 ml EF(MOD-sp4): 57.3 % LAV(MOD-sp4): 38.2 ml SV(MOD-sp4): 72.8 ml SV(MOD-sp2): 60.0 ml LA A4 area: 15.3 cm2 RA A4 area: 11.0 cm2 Doppler Measurements AND Calculations MV E max chaim: 73.2 cm/sec Ao V2 max: 123.0 cm/sec LV V1 max: 117.5 cm/sec MV A max chaim: 62.8 cm/sec Ao max P.1 mmHg LV V1 max P.5 mmHg MV E/A: 1.2 PA V2 max: 135.6 cm/sec Interpretation Summary The estimated ejection fraction is 65 %. Normal diastology for age. Mildly dilated right ventricle. Trivial tricuspid valve insufficiency. Right ventricular systolic pressure estimated to be 21 mmHg. There is no comparison study available. Ordering Physician: Killian Garza Referring Physician: CYNTHIA RUIZ Performed By: Antonina Vazquez RDCS, RVT 04/24/17 8185 Date Killian Garza MD CC: Iron Ruiz; Killian Garza MD Date Dictated: 04/24/17 1300 Date Transcribed: 04/24/17 1357 Emblem Cutter: Signed PROGRESS Observed: 04/22/2017 Status: COMPLETED Source: [place] 11:25 AM [facility] REPOSITORY O ID: [id number] Author: Jerrod Morse Service: (none) Author Type: Physician Type: Progress Notes Filed: 04/22/2017 4:25 PM Note Text: Neurology Follow-up Visit ASSESSMENT: 41 year old female with history significant for asthma, anxiety, concussion, with post-traumatic migraines. She is on the 3rd day of a migraine Prior to this episode her migraines were well-controlled. She is responding well to acute therapy. Gave 3 day course of Decadron to use if current migraine is not gone by Friday or so. She has responded to Decadron in the past. Tolerating her current regimen well. ? ? No recent syncopal episodes. Sees cardiology and has loop recorder. ?? PLAN: --->?Acute Treatment:? -Imitrex, Zofran. Decadron to use for current migraine cycle if needed ?? --->?Preventive Treatment:? -continue Neurontin, propranolol, Zonegran ? --->?Follow-up: 6 months Last Visit: 09/12/2016 Interval Hx: Migraine the past 3 days.Before that migraines were controlled. Imitrex is helping. Has taken it daily for the past 3 days and works that day, returns the next day. Migraines can last over a week. Feels normal while Imitrex works. Not running out. Vomiting the past 3 days. Decadron helped in the past. Stress. Had to reschedule appointment with me due to being in hospital for [place]. Son in residential since January, doesn't know how long he will be there. Will have sleep study tomorrow night. Having chest pains, has ECHO scheduled and stress test. No syncopal episodes since last visit. Has new ambulatory care that is non-[facility]. PMH: PAST MEDICAL HISTORY Diagnosis Date - Asthma - Depression Dez in [place] Dr. Clark, Counselor Adina - Headaches due to old head injury - Seizures ([facility]) Neurologist Dr. 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 Social History Main Topics Smoking status: Former Smoker Packs/day: 0.00 Years: 2.00 Smokeless status: Never Used Comment: A couple cigarettes a day for two years Alcohol use: No Drug use: No Sexual activity: Yes Partners with: Male control/protection: None FMH: FAMILY HISTORY Problem Relation Age of Onset - lupus [Other] [OTHER] Maternal Uncle - unknown [Other] [OTHER] Father - htn [Other] [OTHER] Mother - hyperlipidemia [Other] [OTHER] Mother - Cancer Maternal Aunt HEEL STIFFENER - lung cancer [Other] [OTHER] Maternal Uncle - Coronary Artery Disease Maternal Grandmother - Coronary Artery Disease Maternal Grandfather - Coronary Artery Disease Paternal Grandmother - Coronary Artery Disease Paternal Grandfather - Diabetes Brother - Hypertension Brother - Cancer - Cancer Maternal Uncle bone MEDS: Current Outpatient Prescriptions: albuterol HFA (VENTOLIN HFA) 90 mcg/actuation inhaler Inhale 2 Puffs as instructed every 4 hours as needed. fluticasone (FLOVENT HFA) 220 mcg/actuation inhaler Inhale 1 Puff as instructed twice daily. sertraline (ZOLOFT) 100 mg tablet Take 1 tablet by mouth once daily. desloratadine (CLARINEX) 5 mg tablet Take 1 tablet by mouth once daily. omeprazole (PRILOSEC) 20 mg capsule Take 2 capsules by mouth daily before breakfast. 1/2 hr before meal. busPIRone (BUSPAR) 10 mg tablet Take 1 tablet by mouth three times daily. propranolol ER (INDERAL LA) 60 mg 24 hr capsule TAKE 1 CAPSULE BY MOUTH ONCE DAILY. cloNIDine HCl (CATAPRES) 0.1 mg tablet Take 1 tablet by mouth twice daily. For headaches SUMAtriptan (IMITREX) 100 mg tablet Take 1 tablet by mouth as needed for Migraine Headache (see administration instructions). zonisamide (ZONEGRAN) 50 mg capsule Take 1 capsule in the morning and 2 capsules at bedtime ondansetron (ZOFRAN) 8 mg tablet Take 1 tablet by mouth every 8 hours as needed for Nausea/Vomiting. gabapentin (NEURONTIN) 300 mg capsule TAKE 3 CAPSULES BY MOUTH TWICE DAILY. Blood Pressure Monitor kit Home blood pressure monitor to use as directed. No current facility-administered medications for this visit. REVIEW OF SYSTEMS: Review of system : unchanged from the previous visit or as per HPI (sleep patterns, mood, energy, appetite, stress, exercising). Physical Examination: BP 114/70 (BP Site: Left Arm, BP Position: Sitting, BP Cuff Size: Large Adult) Pulse 68 Wt 108.9 kg (240 lb) LMP 11/26/2012 SpO2 99% BMI 34.44 kg/m2 GEN: Alert. NAD. Normal affect. Cooperative. NEUROLOGICAL: MENTAL STATUS: A+O x 3. Attentive. Thought process and content unremarkable. Follows commands appropriately. Speech fluent. GAIT: Stable primary gait. Jerrod Morse M.D. [facility] Department of [facility] Total time in minutes spent with patient: 15 with more than 50% of the time spent in patient education/counselling/coordinating care with the patient and /or family. cc: REYNA Ruiz PA-C [address] [place] [address] CNOV Observed: 04/22/2017 Status: COMPLETED Source: [place] 11:10 AM [facility] REPOSITORY Office Visit (NEURMM) SKY MUSA ([id number]) 1975 F Date Time Provider Department 04/22/17 11:10 AM JERROD MORSE During your visit today, we recorded the following information about you: Pulse Blood pressure Weight 68/minute 114/70 108.9 kg Jerrod Morse MD 04/22/2017 4:25 PM Signed Neurology Follow-up Visit ASSESSMENT: 41 year old female with history significant for asthma, anxiety, concussion, with post-traumatic migraines. She is on the 3rd day of a migraine Prior to this episode her migraines were well-controlled. She is responding well to acute therapy. Gave 3 day course of Decadron to use if current migraine is not gone by Friday or so. She has responded to Decadron in the past. Tolerating her current regimen well. ? ? No recent syncopal episodes. Sees cardiology and has loop recorder. ?? PLAN: ---ANDgt;?Acute Treatment:? -Imitrex, Zofran. Decadron to use for current migraine cycle if needed ?? ---ANDgt;?Preventive Treatment:? -continue Neurontin, propranolol, Zonegran ? ---ANDgt;?Follow-up: 6 months Last Visit: 09/12/2016 Interval Hx: Migraine the past 3 days.Before that migraines were controlled. Imitrex is helping. Has taken it daily for the past 3 days and works that day, returns the next day. Migraines can last over a week. Feels normal while Imitrex works. Not running out. Vomiting the past 3 days. Decadron helped in the past. Stress. Had to reschedule appointment with me due to being in hospital for [place]. Son in residential since January, doesn't know how long he will be there. Will have sleep study tomorrow night. Having chest pains, has ECHO scheduled and stress test. No syncopal episodes since last visit. Has new ambulatory care that is non-[facility]. PMH: PAST MEDICAL HISTORY Diagnosis Date - Asthma - Depression Dez in [place] Dr. Clark, Counselor Adina - Headaches due to old head injury - Seizures ([facility]) Neurologist Dr. 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 Social History Main Topics Smoking status: Former Smoker Packs/day: 0.00 Years: 2.00 Smokeless status: Never Used Comment: A couple cigarettes a day for two years Alcohol use: No Drug use: No Sexual activity: Yes Partners with: Male control/protection: None FMH: FAMILY HISTORY Problem Relation Age of Onset - lupus [Other] [OTHER] Maternal Uncle - unknown [Other] [OTHER] Father - htn [Other] [OTHER] Mother - hyperlipidemia [Other] [OTHER] Mother - Cancer Maternal Aunt HEEL STIFFENER - lung cancer [Other] [OTHER] Maternal Uncle - Coronary Artery Disease Maternal Grandmother - Coronary Artery Disease Maternal Grandfather - Coronary Artery Disease Paternal Grandmother - Coronary Artery Disease Paternal Grandfather - Diabetes Brother - Hypertension Brother - Cancer - Cancer Maternal Uncle bone MEDS: Current Outpatient Prescriptions: albuterol HFA (VENTOLIN HFA) 90 mcg/actuation inhaler Inhale 2 Puffs as instructed every 4 hours as needed. fluticasone (FLOVENT HFA) 220 mcg/actuation inhaler Inhale 1 Puff as instructed twice daily. sertraline (ZOLOFT) 100 mg tablet Take 1 tablet by mouth once daily. desloratadine (CLARINEX) 5 mg tablet Take 1 tablet by mouth once daily. omeprazole (PRILOSEC) 20 mg capsule Take 2 capsules by mouth daily before breakfast. 1/2 hr before meal. busPIRone (BUSPAR) 10 mg tablet Take 1 tablet by mouth three times daily. propranolol ER (INDERAL LA) 60 mg 24 hr capsule TAKE 1 CAPSULE BY MOUTH ONCE DAILY. cloNIDine HCl (CATAPRES) 0.1 mg tablet Take 1 tablet by mouth twice daily. For headaches SUMAtriptan (IMITREX) 100 mg tablet Take 1 tablet by mouth as needed for Migraine Headache (see administration instructions). zonisamide (ZONEGRAN) 50 mg capsule Take 1 capsule in the morning and 2 capsules at bedtime ondansetron (ZOFRAN) 8 mg tablet Take 1 tablet by mouth every 8 hours as needed for Nausea/Vomiting. gabapentin (NEURONTIN) 300 mg capsule TAKE 3 CAPSULES BY MOUTH TWICE DAILY. Blood Pressure Monitor kit Home blood pressure monitor to use as directed. No current facility-administered medications for this visit. REVIEW OF SYSTEMS: Review of system : unchanged from the previous visit or as per HPI (sleep patterns, mood, energy, appetite, stress, exercising). Physical Examination: BP 114/70 (BP Site: Left Arm, BP Position: Sitting, BP Cuff Size: Large Adult) Pulse 68 Wt 108.9 kg (240 lb) LMP 11/26/2012 SpO2 99% BMI 34.44 kg/m2 GEN: Alert. NAD. Normal affect. Cooperative. NEUROLOGICAL: MENTAL STATUS: A+O x 3. Attentive. Thought process and content unremarkable. Follows commands appropriately. Speech fluent. GAIT: Stable primary gait. Jerrod Morse M.D. [facility] Department of [facility] Total time in minutes spent with patient: 15 with more than 50% of the time spent in patient education/counselling/coordinating care with the patient and /or family. cc: SELF Iron Ruiz PA-C [address] [place] [address] Referring Provider: SELF [200] Allergies As of Date: 04/22/2017 Noted Allergy Reaction LATEX 06/25/2012 2 - Rash 7 - Swelling Comments: Latex condoms, caused vaginal symptoms only PENICILLINS 06/11/2012 7 - Swelling Date Reviewed: 04/22/2017 Reviewed by: Jerrod Morse - Fully Assessed Reason for Visit: Migraine [4107] Primary Visit Diagnosis:Migraine with aura and without status migrainosus, not intractable [G43.109] Order(s):dexamethasone (DECADRON) 4 mg tabletTake 1 tab TID for 1 day then BID for 1 day then daily for 1 day then stop. Take with food.Disp: 6 tabletRfl: 0 propranolol ER (INDERAL LA) 60 mg 24 hr capsuleTake 1 capsule by mouth once daily.Disp: 90 capsuleRfl: 3 gabapentin (NEURONTIN) 300 mg capsuleTake 3 capsules by mouth twice daily.Disp: 540 capsuleRfl: 3 Prescriptions as of 04/22/2017 Sig: PROPRANOLOL ER 60 MG CAPSULE,* Take 1 capsule by mouth once * GABAPENTIN 300 MG CAPSULE Take 3 capsules by mouth twic* ALBUTEROL SULFATE HFA 90 MCG/* Inhale 2 Puffs as instructed * FLUTICASONE 220 MCG/ACTUATION* Inhale 1 Puff as instructed t* SERTRALINE 100 MG TABLET Take 1 tablet by mouth once d* DESLORATADINE 5 MG TABLET Take 1 tablet by mouth once d* OMEPRAZOLE 20 MG CAPSULE,NEDA* Take 2 capsules by mouth amy* BUSPIRONE 10 MG TABLET Take 1 tablet by mouth three * CLONIDINE HCL 0.1 MG TABLET Take 1 tablet by mouth twice * SUMATRIPTAN 100 MG TABLET Take 1 tablet by mouth as nee* ZONISAMIDE 50 MG CAPSULE Take 1 capsule in the morning* ONDANSETRON HCL 8 MG TABLET Take 1 tablet by mouth every * DEXAMETHASONE 4 MG TABLET Take 1 tab TID for 1 day then* Problem List As Of Date 04/22/2017 Noted Resolved Asthma [J45.909] INVALID FOR* Menorrhagia [N92.0] INVALID FOR* Dysmenorrhea [N94.6] INVALID FOR* Fibroid [D25.9] INVALID FOR* Vasovagal syncope [R55] INVALID FOR* More... Hypercholesterolemia [E78.00] INVALID FOR* Status post placement of implantable loop recor*INVALID FOR* Chronic bilateral low back pain without sciatic*INVALID FOR* Chronic pain of left ankle [M25.572, G89.29] INVALID FOR* Gastroesophageal reflux disease [K21.9] INVALID FOR* Adjustment reaction with anxiety and depression*INVALID FOR* Migraine without aura and without status migrai*INVALID FOR* More... 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 More... Vitamin D deficiency [E55.9] Lateral epicondylitis of left elbow [M77.12] INVALID FOR* Chest pain [R07.9] INVALID FOR* More... Prescriptions ordered this encounter Disp Refills Start End DEXAMETHASONE 4 MG TABLET 6 ta* 0 04/22/2017 Sig: Take 1 tab TID for 1 day then BID for 1 day then daily for 1 day then stop. Take with food. PROPRANOLOL ER 60 MG CAPSULE,24 HR,E* 90 c* 3 04/22/2017 Route: ORAL Sig: Take 1 capsule by mouth once daily. GABAPENTIN 300 MG CAPSULE 540 * 3 04/22/2017 04/22/2018 Route: ORAL Sig: Take 3 capsules by mouth twice daily. Medications Discontinued During This Encounter Blood Pressure Monitor kit 1 Kit 0 08/05/2013 04/22/2017 Class: Print RX Sig: Home blood pressure monitor to use as directed. Disc: Reason for discontinue is not on file. propranolol ER (INDERAL LA) 60 mg 24* 90 c* 1 12/26/2016 04/22/2017 Sig: TAKE 1 CAPSULE BY MOUTH ONCE DAILY. Disc: Reason for discontinue is not on file. gabapentin (NEURONTIN) 300 mg capsule 540 * 3 07/11/2016 04/22/2017 Sig: TAKE 3 CAPSULES BY MOUTH TWICE DAILY. Disc: Reason for discontinue is not on file. Disposition: Return in about 6 months (around 10/23/2017). Follow-up and Disposition History Recorded Encounter Status:Closed by JERROD MORSE MD on 04/22/17 CARDIOLOGY VISIT Observed: 04/14/2017 Status: F Source: [place] RE[facility] 10:[address] [facility] REPOSITORY [facility] [address] [place] [address] [address] [place] [address] OFFICE VISIT Date of Service: 04/08/17 MR#: [id number] Acct: [id number] Name: SKY MUSA Rep #: [id number] : 1975 Provider: Killian Garza MD Age/Sex: 41/F Location: [facility] Status: Signed [facility] Chief Complaint: Atypical chest pain Details: SKY MUSA is a 41 F who presents to the office today for evaluation of atypical chest pain. She is the of 1 of my patients. She has a history of hypercholesterolemia, hypertension, nondiabetic, previous smoker who quit around 3 years ago after one half pack per day for 5 years, no alcohol, no illicit drug use. She does have a positive family history of coronary disease in her father who is still alive who had bypass surgery at age 52, mother age 53 who has some kind of heart problems, and a brother with a hole in his heart Patient struggled with multiple episodes of syncope requiring a loop recorder placement at [facility] but 3 years ago. It appears the patient has vasovagal syncope and is treated with antimigraine therapy. Over the past several months, patient has noted atypical, sharp, pleuritic type chest pain which worsened on 03/10/17 which woke her up from a sound sleep. She sought medical attention at [facility] an EKG was performed which showed normal sinus rhythm, normal axis, normal intervals no evidence of previous myocardial infarction or acute changes. She now has chest pain on and off on a regular basis, with associated diaphoresis and shortness of breath. Her pain appears to be worse in the recumbent position, and worse with eating fatty foods. She apparently underwent an ultrasound approximately a month ago which was reportedly negative per the patient for gallstones. In addition the patient is unaware whether she snores, and her falls asleep before she does. She does wake up tired, has daytime somnolence, and takes naps during the day. In addition the patient complains of worsening dyspnea on exertion, chest pain with exertion and shortness of breath. Patient is not on baby aspirin. She has not had her loop recorder interrogated in some time. In our office today her blood pressure is 104/60, and pulse is 76 and regular. Physical exam is as below. Lipids as of 08/02/16 showed LDL of 170 and HDL of 52. EKG is as above. Intake Vital Signs04/08/17 Body Mass Index (BMI) 36.8 04/08/17 Blood Pressure 104/60 04/08/17 Height 5 ft 8 in Intake Visit Reasons: CP (LILLY RUIZ) MCR AND ELBA Allergies latex Allergy (Verified 04/08/17 11:31) Rash Penicillins Allergy (Verified 04/08/17 11:31) Rash Medications Albuterol Inhaler [Ventolin Hfa] 1 - 2 puff INHALATION Q4H PRN PRN 12/15/12 [History Confirmed 04/07/17] BusPIRone [Buspar] 5 mg PO BID 11/05/13 [History Confirmed 04/07/17] clonidine HCl 0.1 mg tablet 0.1 mg PO BID PRN 04/07/17 [History Confirmed 04/07/17] gabapentin 300 mg capsule PO 30 Days 04/07/17 [History Confirmed 04/07/17] omeprazole 20 mg capsule,delayed release 20 mg PO QDAY 04/07/17 [History Confirmed 04/07/17] propranolol ER 120 mg capsule,24 hr,extended release PO 30 Days 04/07/17 [History Confirmed 04/07/17] sertraline 100 mg tablet PO 30 Days 04/07/17 [History Confirmed 04/07/17] sumatriptan 20 mg/actuation nasal spray INTRANASAL 30 Days 04/07/17 [History Confirmed 04/07/17] zonisamide 50 mg capsule 50 mg PO Q12H 04/07/17 [History Confirmed 04/07/17] [facility] Medical History Status post placement of implantable loop recorder (Chronic 02/13/14) Obesity (BMI 30-39.9) (Chronic) Hypercholesteremia (Chronic) Vasovagal syncope (Chronic) Asthma (Chronic) Hypertension (Chronic) Back pain (Chronic) Depression (Chronic) GERD (gastroesophageal reflux disease) (Chronic) 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) Seizure (Chronic) Surgical History History of (Chronic) History of hysterectomy (Chronic) ORIF right ankle (Chronic) Family History Mother Hypertension Brother Hypertension Diabetes Grandfather CAD (coronary artery disease) Grandmother CAD (coronary artery disease) Social History Smoking Status: Never smoker Cardiology Exam Const Appearance: cooperative, healthy appearing and no acute distress Nutritional Appearance: well nourished Orientation: alert, oriented x3 and oriented to person Head Head: normal to inspection, atraumatic and normocephalic Nose: external nose normal Face and Sinus: face symmetric Mouth: oral mucosae normal Eyes General: appearance normal, both eyes and all related structures Eyelids: eyelids normal Conjunctivae: conjunctivae normal Pupils: PERRL and normal by confrontation EOM: EOM intact bilaterally Neck Neck: normal visual inspection and full ROM Carotids: normal carotid upstroke Chest Chest inspection: normal inspection of the chest Auscultation: Bilateral: Clear to Auscultation Cardio Palpation: normal PMI Rate: regular rate Rhythm: regular rhythm Heart sounds: S1 normal and S2 normal GI GI: normal to inspection, no hepatosplenomegaly and bowel sounds present Neuro General: alert, oriented x3, awake, CN's II-XI intact bilaterally and moves all extremities Skin Skin: no rashes or lesions noted Extremities Pulses: Normal: Right Femoral Pulse, Left Femoral Pulse, Right Dorsalis Pedis Pulse, Left Dorsalis Pedis Pulse, Right Posterior Tibial Pulse, Left Posterior Tibial Pulse, Right Radial Pulse, Left Radial Pulse Lower Extremity Edema: None: Bilateral Psych Psychological: normal affect Assessment AND Plan 1. Chest pain R07.9 Plan 1. Chest pain: Patient has signs and symptoms of both atypical and typical anginal symptoms, and given her positive family history of coronary disease in her mother and father as well as her brother I recommend that she undergo a treadmill echocardiogram to assess for possible coronary ischemia. If this is grossly abnormal, the patient may require diagnostic coronary angiogram. She may require test prior to any catheterization. In the meantime I would also recommend obtaining a 2D echo with Doppler to determine her LV function, pulmonary pressures, and assess with a bubble study whether she also may have an ASD as her brother appears to have. The meantime I recommend she can continue her PPI therapy for possible gastritis and reflux disease. I am hesitant to place her on baby aspirin as this may exacerbate her gastritis. Orders Orders: 2. Snoring R06.83 Plan 2. Snoring: Is uncertain whether the patient snores, as her goes to sleep sooner than she does but he himself has obstructive sleep apnea. She does have excessive daytime somnolence, and chest pain which is waking her up which may be a surrogate for sleep apnea. I recommend she undergo a full sleep study. 3. Hypercholesteremia E78.00 Plan 3. Hypercholesterolemia: Her LDL cholesterol is 170 as of July 2016. She is on no antilipid medications. I recommend initiating Zocor 20 mg p.o. nightly and repeating lipid profile in 6 weeks time. Orders Orders: 4. Status post placement of implantable loop recorder Z95.818 medtronic Reveal LINQ Plan 4. Implantation of loop recorder: We will interrogate her loop recorder, and it may be that we need to remove this going forward. Patient apparently has neurocardiogenic syncope and unless her loop recorder demonstrates any significant arrhythmias, I would recommend discontinuation of this as it may be contributing to her atypical chest pain. 5. Return office in 6 months. This note was generated using a voice recognition system and there may be incorrect words, spelling or punctuation that were not noted when reviewing the office note prior to saving. Orders Orders: Plan Detail Other Orders Orders: Follow Up 6 Months (Greg) Coding Level of Care Code Off vis,new,level 4 Diagnoses Chest pain R07.9 Snoring R06.83 Hypercholesteremia E78.00 Status post placement of implantable loop recorder Z95.818 Coding Level of Care Code Off vis,new,level 4 Diagnoses Chest pain R07.9 Snoring R06.83 Hypercholesteremia E78.00 Status post placement of implantable loop recorder Z95.818 04/14/17 1021 <Electronically signed by Killian Garza MD> Date Killian Garza MD Cosigner Signature: Date (if applicable) CC: LIVER PROFILE Collected: 04/08/2017 Status: F Source: [place] 12:[address] [facility] REPOSITORY TYPE CODE TESTS RESULT OUT OF RANGE REFERENCE UNITS LAB L501.1500 6.4-8.2 g/dL Normal T PROT 7.8 LAB L501.1800 3.2-5.0 g/dL Normal ALB 3.8 LAB L501.1950 2.2-4.2 g/dL Normal GLOB 4.0 LAB L501.4100 15-37 U/L Normal AST 18 LAB L501.4305 45-117 U/L Normal ALK P 76 LAB L501.4405 13-56 U/L Normal ALT 24 Result Comment: Please note revised ALT reference range effective 2017. LAB L501.4600 0.20-1.00 mg/dL Normal T BILI 0.60 LAB L501.4700 0.00-0.30 mg/dL Normal D BILI 0.10 Performed By: #### L500.3400, L500.4100 #### [facility] [address] [place], [address] LIPID PROFILE Collected: 04/08/2017 Status: F Source: [place] 12:[address] [facility] REPOSITORY TYPE CODE TESTS RESULT OUT OF RANGE REFERENCE UNITS LAB L501.4900 200 mg/dL High CHOL 209 Result Comment: <200 mg/dL Desirable 200-240 mg/dL Borderline >240 mg/dL High Risk LAB L501.5000 mg/dL Normal TRIG 100 Result Comment: The drugs N-Acetylcysteine and Metamizole may falsely depress this assay. Serum Triglycerides Reference Interval Normal <150 mg/dL Borderline high 150 - 199 mg/dL High 200 - 499 mg/dL Very High > or = 500 mg/dL LAB L501.6400 mg/dL Normal HDL 55 Result Comment: The drugs N-Acetylcysteine and Metamizole may falsely depress this assay. Reference Range HDL <40 mg/dL Low HDL Cholesterol HDL >or= 60 mg/dL High HDL Cholesterol LAB L501.6500 0-130 mg/dL High LDL 134 LAB L501.6600 5-40 mg/dL Normal VLDL 20 Performed By: #### L500.3400, L500.4100 #### [facility] [address] [facility] [place], [address] COMP METABOLIC PANEL Collected: 04/08/2017 Status: F Source: [place] 10:56 AM [facility] REPOSITORY TYPE CODE TESTS RESULT OUT OF REFERENCE UNITS RANGE LAB TP 6.3-8.0 g/dL Protein, Total 7.5 LAB ALB 3.9-4.9 g/dL Albumin 4.2 LAB CA 8.5-10.2 mg/dL Calcium, Total 9.0 LAB TBIL 0.2-1.3 mg/dL Bilirubin, Total 0.4 LAB ALKP 32-117 U/L Alkaline Phosphatase 64 LAB AST 13-35 U/L AST 18 LAB GLU 74-99 mg/dL Glucose High 129 Result Comment: The [place] Diabetes Association (ADA) provides guidance for cutoff values for fasting glucose and random glucose. The ADA defines fasting as no caloric intake for at least 8 hours. Fas ting plasma glucose results between 100 to 125 mg/dL indicate increased risk for diabetes (prediabetes). Fasting plasma glucose results greater than or equal to 126 mg/dL meet the criteria for diagnosis of diabetes. In the absence of unequivocal hyperglycemia, results should be confirmed by repeat testing. In a patient with classic symptoms of hyperglycemia or hyperglycemic crisis, random plasma glucose results greater than or equal to 200 mg/dL meet the criteria for diagnosis of diabetes. Reference: Standards of Medical Care in Diabetes 2016, [place] [employer] Association. Diabetes Care. 2016.39(Suppl 1). LAB BUN 7-21 mg/dL BUN 13 LAB CRET 0.58-0.96 mg/dL Creatinine 0.96 LAB NA 136-144 mmol/L Sodium 137 LAB K 3.7-5.1 mmol/L Potassium 4.2 LAB CL 97-105 mmol/L Chloride 103 LAB CO2 22-30 mmol/L CO2 23 LAB AGAP 9-18 mmol/L Anion Gap 11 LAB ALT 7-38 U/L ALT 14 LAB GFRAA eGFR- Amer. >60 LAB GFRNAA . eGFR-All Other Races >60 Result Comment: eGFR (Estimated GFR) Units of measure: mL/min/1.73 meters squared eGFR is derived from the reexpressed MDRD Study equation using the following parameters: serum creatinine, age, gender and race. The creatinine assay has been calibrated to be traceable to IDMS. An eGFR <60 mL/min/1.73m2 for >3 months is consistent with chronic kidney disease. Refer to KDOQI guidelines for clinical interpretation. In patients with unstable renal function, e.g. those with acute kidney injury, the eGFR may not accurately reflect actual GFR. Performed By: #### CMP, LIPA #### [facility] [address] [place], [place] [address] LIPASE Collected: 04/08/2017 Status: F Source: [place] 10:56 AM [facility] REPOSITORY TYPE CODE TESTS RESULT OUT OF REFERENCE UNITS RANGE LAB LIPA 16-61 U/L Lipase 29 Performed By: #### CMP, LIPA #### [facility] [address] [place], [place] [address] PROGRESS Observed: 03/20/2017 Status: COMPLETED Source: [place] 11:06 AM [facility] REPOSITORY HNO ID: [id number] Author: Latasha (Pt) Evelio Service: (none) Author Type: Physical Therapist Type: Progress Notes Filed: 03/20/2017 11:09 AM Note Text: Episode Visit Count: 2 Therapist That Will Oversee The Plan Of Care: Latasha Koroma Start of Care Date: 03/13/17 Onset Date: 12/11/17 Plan of Care Certification Date: 03/13/17 REHABIL[facility]ATION AND SPORTS THERAPY PHYSICAL THERAPY TREATMENT NOTE ASSESSMENT: Sky Musa demonstrated improvements in shoulder and elbow ROM, less guarding and increased tolerance to exs. Pt responds very well to lacrosse ball massage. The patient will continue to benefit from continued skilled physical therapy for progression of exs to return to prior functional status PLAN FOR NEXT VISIT: Will add wand shld abduction and flexion SUBJECTIVE: Pt notes that she has been doing her therapy 4x/day Pain Score: 3/10 Pain Location: Elbow - Left Description: Aching Frequency: Continuous Post Treatment Pain Score: 2/10 Post Treatment Pain Description: Aching OBJECTIVE MEASURES WITH LEVEL OF FUNCTION: UE AROM L Elbow Extension: -10 L Elbow Flexion: 130 Degrees TREATMENT: Therapeutic Exercise: 1: shld michael for elevation 1x15 2: wrist extensor stretch 30 sec x3 with arm supported on table 3: lacrosse ball mobilizaiton x5 min. x2 beginning and end of session 4: wand assisted shld extension 2x10 5: wand assisted shld ER 2x10 6: wand assisted active elbow flexion and extension 2x10 seated 7: flex bar pronation/ supination 2x10 Skilled Intervention: Patient was educated in proper exercise technique and purpose for exercises. Skilled judgment was provided in selection of appropriate interventions. Correct performance of therapeutic exercises was facilitated with verbal and visual cuing. Billing: [facility]: Therapeutic Exercise ([id number]): 1:1 time: 30 minutes (2 units: 23-37 mins) Total time: 30 minutes Latasha Koroma PT CNTHERAPY Observed: 03/20/2017 Status: COMPLETED Source: [place] 10:15 AM [facility] REPOSITORY OT/PT/Speech Visit (PTWS) DIMPLESKY Johns ([id number]) 1975 F Date Time Provider Department 03/20/17 10:15 AM LATASHA KOROMA (PT) PTWS Date Time Provider Department Center 03/20/2017 10:15 AM [id number], LISA (PT) PTWS [facility] Reason for Visit: Physical Therapy [503] PT Discharge [752] Reason For Visit History Recorded Primary Visit Diagnosis:Lateral epicondylitis of left elbow [M77.12] Allergies As of Date: 03/20/2017 Noted Allergy Reaction LATEX 06/25/2012 2 - Rash 7 - Swelling Comments: Latex condoms, caused vaginal symptoms only PENICILLINS 06/11/2012 7 - Swelling Date Reviewed: 03/10/2017 Reviewed by: Bella Teixeira LPN - Fully Assessed Prescriptions as of 03/20/2017 Sig: ALBUTEROL SULFATE HFA 90 MCG/* Inhale 2 Puffs as instructed * FLUTICASONE 220 MCG/ACTUATION* Inhale 1 Puff as instructed t* SERTRALINE 100 MG TABLET Take 1 tablet by mouth once d* DESLORATADINE 5 MG TABLET Take 1 tablet by mouth once d* OMEPRAZOLE 20 MG CAPSULE,NEDA* Take 2 capsules by mouth amy* BUSPIRONE 10 MG TABLET Take 1 tablet by mouth three * X PROPRANOLOL ER 60 MG CAPSULE,* TAKE 1 CAPSULE BY MOUTH ONCE * CLONIDINE HCL 0.1 MG TABLET Take 1 tablet by mouth twice * SUMATRIPTAN 100 MG TABLET Take 1 tablet by mouth as nee* ZONISAMIDE 50 MG CAPSULE Take 1 capsule in the morning* ONDANSETRON HCL 8 MG TABLET Take 1 tablet by mouth every * X GABAPENTIN 300 MG CAPSULE TAKE 3 CAPSULES BY MOUTH TWIC* X BLOOD PRESSURE MONITOR KIT Home blood pressure monitor t* Progress Notes: Latasha Koroma, PT 03/20/2017 11:09 AM Signed Episode Visit Count: 2 Therapist That Will Oversee The Plan Of Care: Latasha Koroma Start of Care Date: 03/13/17 Onset Date: 12/11/17 Plan of Care Certification Date: 03/13/17 REHABILITATION AND SPORTS THERAPY PHYSICAL THERAPY TREATMENT NOTE ASSESSMENT: Sky Musa demonstrated improvements in shoulder and elbow ROM, less guarding and increased tolerance to exs. Pt responds very well to lacrosse ball massage. The patient will continue to benefit from continued skilled physical therapy for progression of exs to return to prior functional status PLAN FOR NEXT VISIT: Will add wand shld abduction and flexion SUBJECTIVE: Pt notes that she has been doing her therapy 4x/day Pain Score: 3/10 Pain Location: Elbow - Left Description: Aching Frequency: Continuous Post Treatment Pain Score: 2/10 Post Treatment Pain Description: Aching OBJECTIVE MEASURES WITH LEVEL OF FUNCTION: UE AROM L Elbow Extension: -10 L Elbow Flexion: 130 Degrees TREATMENT: Therapeutic Exercise: 1: shld michael for elevation 1x15 2: wrist extensor stretch 30 sec x3 with arm supported on table 3: lacrosse ball mobilizaiton x5 min. x2 beginning and end of session 4: wand assisted shld extension 2x10 5: wand assisted shld ER 2x10 6: wand assisted active elbow flexion and extension 2x10 seated 7: flex bar pronation/ supination 2x10 Skilled Intervention: Patient was educated in proper exercise technique and purpose for exercises. Skilled judgment was provided in selection of appropriate interventions. Correct performance of therapeutic exercises was facilitated with verbal and visual cuing. Billing: [facility]: Therapeutic Exercise ([id number]): 1:1 time: 30 minutes (2 units: 23-37 mins) Total time: 30 minutes VELVET Barnett PT 05/20/2017 12:15 PM Signed [facility] REHABILITATION AND SPORTS THERAPY PHYSICAL THERAPY DISCONTINUANCE OF CARE Plan of Care Period: Start of Care Date: 03/13/17 Last Visit Date:03/20/2017 Therapy Program: Patient did not return for follow up care as planned. Please refer to last visit note for interventions provided for this episode of care. Assessment: Unable to formally assess goal achievement due to non-compliance with therapy plan of care. Reason for Discontinuation of Care: Patient has not returned to therapy or scheduled additional follow-up appointments. Latasha Koroma, PT TROPONIN-I Collected: 03/16/2017 Status: F Source: [facility] 9:25 PM [facility] REPOSITORY TYPE CODE TESTS RESULT OUT OF RANGE REFERENCE UNITS LAB [id number](LO .00-.03 ng/mL INC) Normal <.01 Troponin-I Performed By: #### [id number] #### [facility] [employer] [facility] [place] [id number] U DRUG SCREEN Collected: 03/16/2017 Status: F Source: [facility] 7:17 PM [facility] REPOSITORY TYPE CODE TESTS RESULT OUT OF RANGE REFERENCE UNITS LAB [id number](LO ng/mL INC) Normal U Negative Amph Scr Result Comment: Results for medical use only. Confirmation of positive results will be done when requested. Specimens are kept for one week. LAB 38862330(LOINC) ng/mL U Normal Nicky Scr Negative LAB 86146952(LOINC) ng/mL U Normal Benzodia Scr Negative LAB 48481292(LOINC) ng/mL U Normal Cannab Scr Negative LAB 72974788(LOINC) ng/mL U Normal Cocaine Scr Negative LAB 24227964(LOINC) ng/mL U Normal Opiate Scr Negative LAB 99021285(LOINC) ng/mL U Normal PCP Scr Negative Performed By: #### [id number] #### [facility] [employer] [facility] [place] [id number] UA COMPLETE Collected: 03/16/2017 Status: F Source: [facility] 7:17 PM [facility] REPOSITORY TYPE CODE TESTS RESULT OUT OF RANGE REFERENCE UNITS LAB [id number]( Yellow LOINC) Normal UA Color Straw LAB 01751362( Clear LOINC) Normal UA Clarity Clear LAB 15047664( Negative LOINC) Normal UA Glucose Negative LAB 40311833( Negative LOINC) Normal UA Bili Negative LAB 02694184( Negative LOINC) Normal UA Ketones Negative LAB 98542772( 1.003-1.030 LOINC) Normal UA Spec Grav 1.004 LAB 33458207( 4.6-8.0 LOINC) Normal UA pH 7.0 LAB 20162386( Negative LOINC) Normal UA Protein Negative LAB 16952894( mg/dL LOINC) Normal UA Urobilinogen Negative LAB 15722913( Negative LOINC) Normal UA Nitrite Negative LAB 75188820( Negative LOINC) Normal UA Blood Negative LAB 64872715( Negative LOINC) Normal UA Leuk Est Negative LAB 49534087( 0-3 /HPF LOINC) Normal UA RBC 0-3 LAB 00378299( 0-5 /HPF LOINC) Normal UA WBC 0-5 LAB 85579119( 0-5 /HPF LOINC) Normal UA Squam Epithelial 0-5 LAB 30472371( None /HPF LOINC) UA Bacteria Abnormal Trace Performed By: #### [id number] #### [facility] [address] [place] [address] XR CHEST 2 VIEWS Observed: 03/16/2017 Status: F Source: [facility] 6:50 PM [facility] REPOSITORY Exam Date/Time: 03/16/2017 18:58 EST Reason for Exam: Chest pain Report TWO-VIEW CHEST REASON FOR STUDY: Chest pain. COMPARISON: None. REPORT: Trachea, mediastinum, and heart size are unremarkable. No effusion, pneumothorax, or nodule is noted. The diaphragm and bony elements are intact. Loop recorder is incidentally noted. IMPRESSION: Nonacute two-view chest. FINAL REPORT Dictated: 03/16/2017 9:02 pm Jordan Pickard DO Signed (Electronic Signature): 03/16/2017 9:02 pm Signed by: Jordan Pickard DO Technologist: KASSANDRA CBC W/ AUTO DIFF Collected: 03/16/2017 Status: F Source: [facility] 6:30 PM [facility] REPOSITORY TYPE CODE TESTS RESULT OUT OF RANGE REFERENCE UNITS LAB [id number](L 3.6-11.0 E3/mcL OINC) Normal WBC 8.0 LAB 45407038(L 3.90-5.40 E6/mcL OINC) Normal RBC 4.32 LAB 26361195(L 12.0-16.0 G/DL OINC) Normal Hgb 12.5 LAB 32881603(L 36.0-48.0 % OINC) Normal Hct 36.9 LAB 42803839(L 11.5-14.5 % OINC) Normal RDW 13.4 LAB 46291041(L 27.0-31.0 pg OINC) Normal MCH 28.8 LAB 49099302(L 33.0-37.0 G/DL OINC) Normal MCHC 33.7 LAB 51004830(L 78.0-100.0 fL OINC) Normal MCV 85.5 LAB 61440951(L 7.4-11.0 fL OINC) Normal MPV 9.0 LAB 94151751(L 130-400 E3/mcL OINC) Normal Platelet 242 Performed By: #### [id number] #### [facility] [employer] [facility] [place] [address] AUTO DIFF Collected: 03/16/2017 Status: F Source: [facility] 6:30 PM [facility] REPOSITORY Order Comment: Order Added by Discern Expert. TYPE CODE TESTS RESULT OUT OF RANGE REFERENCE UNITS LAB [id number](L 37.0-75.0 % OINC) Normal Neutro Auto 56.5 LAB 07258691(L 20.0-55.0 % OINC) Normal Lymph Auto 36.5 LAB 20553790(L 0.0-10.0 % OINC) Normal Fillmore Auto 5.6 LAB 54476498(L 0.0-11.0 % OINC) Normal Eos Auto 1.0 LAB 41739005(L 0.0-2.0 % OINC) Normal Basophil Auto 0.4 LAB 02221327(L 1.4-6.5 E3/mcL OINC) Normal Neutro 4.5 Absolute LAB 87309388(L 1.2-3.4 E3/mcL OINC) Normal Lymph Absolute 2.9 LAB 03221775(L 0.0-0.7 E3/mcL OINC) Normal Fillmore Absolute 0.5 LAB 95146550(L 0.0-0.7 E3/mcL OINC) Normal Eos Absolute 0.1 LAB 58498593(L 0.0-0.2 E3/mcL OINC) Normal Basophil 0.0 Absolute Performed By: #### [id number] #### [facility] [employer] [address] [place] [id number] PT Collected: 03/16/2017 Status: F Source: [facility] 6:30 [facility] TYPE CODE TESTS RESULT OUT OF RANGE REFERENCE UNITS LAB [id number](LO 1.0-1.2 INC) Normal INR 1.1 Result Comment: INR Recommended Therapeuptic Ranges: Prophylaxis/treatment of DVT and PE?2.0-3.0 Prevention of systemic embolism?.2.0-3.0 Mechanical prosthetic values?2.5-3.5 CRITICAL VALUES?.>4.0 LAB 16433501(LOINC) 11.6-14.6 second(s) Normal 13.7 PT Performed By: #### [id number] #### [facility] [address] [place] [address] PTT Collected: 03/16/2017 Status: F Source: [facility] 6:30 [facility] TYPE CODE TESTS RESULT OUT OF RANGE REFERENCE UNITS LAB [id number](LO 23.2-36.4 second(s) INC) Normal PTT 26.3 Performed By: #### [id number] #### [facility] [address] [place] [address] PTT CONTROL RATIO Collected: 03/16/2017 Status: F Source: [facility] 6:30 [facility] Order Comment: Order added by Discern Expert. TYPE CODE TESTS RESULT OUT OF RANGE REFERENCE UNITS LAB [id number](LO 0.8-1.2 ratio INC) Normal PTT Ratio 0.9 Performed By: #### [id number] #### [facility] [address] [place] [address] TROPONIN-I Collected: 03/16/2017 Status: F Source: [facility] 6:30 [facility] TYPE CODE TESTS RESULT OUT OF RANGE REFERENCE UNITS LAB [id number](LO .00-.03 ng/mL INC) Normal <.01 Troponin-I Performed By: #### [id number] #### [facility] [employer] [address] [place] [address] D-DIMER Collected: 03/16/2017 Status: F Source: [facility] 6:[address] [facility] REPOSITORY TYPE CODE TESTS RESULT OUT OF RANGE REFERENCE UNITS LAB [id number](LO <=0.50 mg/L FEU INC) Normal D-Dimer <0.22 Result Comment: Normal D Dimer level indicates no Deep Vein Thrombosis (DVT) or Pulmonary Embolism (PE). Elevated D Dimer level indicates additional studies and clinical assessments are indicated to conclude diagnosis of Deep Vein Thromobsis (DVT) or Pulmonary Embolism (PE). Performed By: #### [id number] #### [facility] [address] [place] [address] BMP Collected: 03/16/2017 Status: F Source: [facility] 6:[address] [facility] REPOSITORY TYPE CODE TESTS RESULT OUT OF RANGE REFERENCE UNITS LAB 36680752(L 70-99 mg/dL OINC) Glucose Normal Lvl 91 LAB 53270173(L 8.4-10.2 mg/dL OINC) Calcium Normal Lvl 8.9 LAB 99005810(L 136-145 mEq/L OINC) Sodium Normal Lvl 139 LAB 28639970(L 3.5-5.1 mEq/L OINC) Normal Potassium Lvl 3.6 LAB 47119775(L 98-107 mEq/L OINC) Chloride Normal 107 LAB [id number](L 24.0-30.0 mEq/L OINC) CO2 Normal 24.5 LAB 69004567(L 7-18 mg/dL OINC) BUN Normal 13 LAB 1886894(LO 0.6-1.3 mg/dL INC) Normal Creatinine 1.0 LAB [id number](L 5.4-30.0 ratio OINC) Normal BUN/Creat Ratio 13.0 Performed By: #### [id number] #### [facility] [address] [place] [id number] CK Collected: 03/16/2017 Status: F Source: [facility] 6:[address] [facility] REPOSITORY TYPE CODE TESTS RESULT OUT OF RANGE REFERENCE UNITS LAB [id number](LO 26-140 Int._Unit/L INC) Normal Total CK 102 Performed By: #### [id number] #### [facility] [address] [id number] EGFR Collected: 03/16/2017 Status: F Source: [facility] 6:[address] [facility] REPOSITORY Order Comment: Order added by Discern Expert. TYPE CODE TESTS RESULT OUT OF RANGE REFERENCE UNITS LAB [id number](LO mL/min/1.73 INC) m2 Normal eGFR >60 LAB [id number](LO mL/min/1.73 INC) m2 Normal eGFR AA >60 Performed By: #### [id number] #### [facility] [address] [id number] HEP FUNC PANEL Collected: 03/16/2017 Status: F Source: [facility] 6:30 PM [facility] REPOSITORY TYPE CODE TESTS RESULT OUT OF RANGE REFERENCE UNITS LAB [id number](L 10-40 Int._Unit/L OINC) Normal ALT 11 LAB [id number](L 10-42 Int._Unit/L OINC) Normal AST 17 LAB [id number](L 3.2-5.0 G/DL OINC) Normal Albumin Lvl 4.2 LAB [id number](L 2.0-4.0 G/DL OINC) Normal Globulin 3.0 LAB [id number](L 1.1-1.9 ratio OINC) Normal A/G Ratio 1.4 LAB [id number](L 42-121 Int._Unit/L OINC) Normal Alk Phos 54 LAB [id number](L .00-.20 mg/dL OINC) Normal Bili Direct <.10 LAB [id number](L OINC) Normal Bili Indirect >0.3 Result Comment: No established ranges available for the Indirect Biliruben. LAB [id number](LOINC) 0.2-1.0 mg/dL Normal Bili Total 0.4 LAB [id number](LOINC) 6.4-8.3 G/DL Normal Total Protein 7.2 Performed By: #### [id number] #### [facility] [address] [id number] LIPASE LEVEL Collected: 03/16/2017 Status: F Source: [facility] 6:30 PM [facility] REPOSITORY TYPE CODE TESTS RESULT OUT OF RANGE REFERENCE UNITS LAB [id number](LO 8-57 U/L INC) Normal Lipase Lvl 27 Performed By: #### [id number] #### [facility] [address] [id number] MAGNESIUM Collected: 03/16/2017 Status: F Source: [facility] 6:30 PM [facility] REPOSITORY TYPE CODE TESTS RESULT OUT OF RANGE REFERENCE UNITS LAB [id number](L 1.7-2.8 mg/dL OINC) Normal Magnesium 1.9 Performed By: #### [id number] #### [facility] [address] [id number] CKMB Collected: 03/16/2017 Status: F Source: [facility] 6:30 PM [facility] REPOSITORY TYPE CODE TESTS RESULT OUT OF RANGE REFERENCE UNITS LAB [id number](LO 0.0-5.0 ng/mL INC) Normal CK MB 0.7 Performed By: #### [id number] #### [facility] [address] [id number] PROGRESS Observed: 03/13/2017 Status: COMPLETED Source: [place] 1:36 PM [facility] REPOSITORY HNO ID: [id number] Author: Latasha (Pt) Evelio Service: (none) Author Type: Physical Therapist Type: Progress Notes Filed: 03/13/2017 2:03 PM Note Text: Episode Visit Count: 1 Therapist That Will Oversee The Plan Of Care: Latasha Koroma Start of Care Date: 03/13/17 Onset Date: 12/11/17 Plan of Care Certification Date: 03/13/17 Patient Identified by Name and Date of : Yes REHABILITATION AND SPORTS THERAPY PHYSICAL THERAPY EVALUATION PLAN OF CARE: Assessment: Sky Musa presents with the chief complaint of pain in left elbow forearm. Sx consistent with lateral expicondylitis but d/t guarding has restriction of ROM at shoulder as well She presents with impairments of decreased elbow and shld ROM and UE function. She may benefit from skilled therapy services to improve deficits and return to prior functional status. Prognosis: Good Good due to: current objective clinical presentation Goals for Episode of Care: created on 03/13/17 through 04/10/17 [place] in home exercise program. Patient will decrease pain to 2/10 with functional activities Patient will increase active ROM of left UE to equal right to allow pt to improved performance of ADLs. Patient will increase strength of left UE to 4+/5 to allow for perform ADLs. Perform lifting and reaching with decreased report of symptoms/pain in 4 weeks. G CODE REPORTING Based on clinical assessment and the score on the Quick Dash Assessment Tool, the G code and corresponding severity modifiers are documented below. Evaluation: 03/13/2017 Current Status: Carrying, Moving and Handling Objects: G8984 CK 40-59% impaired Goal Status: Carrying, Moving and Handling Objects: G8985 CJ 20-39% impaired Planned Interventions, Frequency, and Duration: Current Frequency: 2x/week Duration: 4 weeks Total Number of Visits Planned: 8 Patient to be see for Planned Treatment Interventions: Therapeutic exercise;Manual therapy;Patient/Family/Caregiver Education ( no ultrasound secondary to loop recorder) PLAN FOR NEXT VISIT: Will advance shld ROM and soft tissue mobilization as tolerated Patient demonstrates good understanding of plan of care and treatment. The above goals and plan of care were discussed and agreed upon by patient/family. SUBJECTIVE: Sky Musa is a 41 year old female seen today for Elbow pain above and below lateral epicondyle Functional Limitations: ( gripping , lifting, reaching, reaching overhead behind back) Prior Level of Function: Independent without limitations Patient Goals: alleviate pain Intake Information: Prescription present Previous Treatment: ( strap, ice, heat, pressure points) Relevant History Right or Left Handed: Right Employment: Medically Disabled Recreation / Current Exercise: walking Hobbies / Interests: sewing Home Environment Patient Lives With: Significant Other Pain Score: 7/10 Pain Location: Elbow - Left;Forearm - Left Description: Throbbing;Sharp Frequency: Continuous Post Treatment Pain Score: 5/10 Pain Location: Elbow - Left Post Treatment Pain Description: Aching OBJECTIVE MEASURES WITH LEVEL OF FUNCTION: Elbow Observations L Elbow Presents with: ( guarded position) L Elbow/Wrist Palpation Tenderness: Lateral epicondyle UE AROM R Shoulder Flex: 165 Degrees R Shoulder ABduction: 175 Degrees R Elbow Extension: 0 Degrees R Elbow Flexion: 140 Degrees R Wrist Extension: 80 Degrees R Wrist Flexion: 70 Degrees L Shoulder Flex: 123 Degrees L Shoulder ABduction: 80 Degrees L Elbow Extension: -30 L Elbow Flexion: 90 Degrees L Wrist Extension: 40 Degrees L Wrist Flexion: 38 Degrees UE Strength L UE Strength: ( not tested d/t pain) Special Tests - Elbow Elbow/Wrist Special Tests: Lateral Epicondyle Test ( positive) Education: Education Learning Preferences: Demonstration;Explanation;Performance;Printed Materials Barriers: None Learning/educational needs: Home exercise program;Plan of Care Education Provided: Yes, see treatment interventions for education provided Education Provided To: Patient Education Mode/Type: Demonstration;Explanation/Discussion;Literature/Printed Materials;Performance Response to Education/Teach Back: States/Identifies TREATMENT: Evaluation Therapeutic Exercise: 1: shld michael for elevation 1x10 2: wrist extensor stretch 30 sec x3 with arm supported on table 3: lacrosse ball mobilizaiton x5 min. Skilled Intervention: Patient was educated in proper exercise technique and purpose for exercises. Skilled judgment was provided in selection of appropriate interventions. Provided written instruction for home exercise program to facilitate proper performance and compliance. Correct performance of therapeutic exercises was facilitated with verbal and visual cuing. Educated patient on rationale for performing exercises in regards to increase ease of ADL and ROM and function Billing: [facility]: Evaluation - Low Complexity (57533) Therapeutic Exercise (83983): 1:1 time: 20 minutes (1 unit: 8-22 mins) Total time: 40 minutes Latasha Koroma PT CNTHERAPY Observed: 03/13/2017 Status: COMPLETED Source: [place] 11:45 AM [facility] REPOSITORY OT/PT/Speech Visit (PTWS) SKY MUSA ([id number]) 1975 F Date Time Provider Department 03/13/17 11:45 AM LATASHA KOROMA (PT) PTWS Date Time Provider Department Center 03/13/2017 11:45 AM [id number], LISA (PT) PTWS [facility] Reason for Visit: PT Eval [747] Patient Education [91] Visit Diagnosis:Lateral epicondylitis of left elbow [M77.12] Allergies As of Date: 03/13/2017 Noted Allergy Reaction LATEX 06/25/2012 2 - Rash 7 - Swelling Comments: Latex condoms, caused vaginal symptoms only PENICILLINS 06/11/2012 7 - Swelling Date Reviewed: 03/10/2017 Reviewed by: Bella Teixeira LPN - Fully Assessed Prescriptions as of 03/13/2017 Sig: ALBUTEROL SULFATE HFA 90 MCG/* Inhale 2 Puffs as instructed * FLUTICASONE 220 MCG/ACTUATION* Inhale 1 Puff as instructed t* SERTRALINE 100 MG TABLET Take 1 tablet by mouth once d* DESLORATADINE 5 MG TABLET Take 1 tablet by mouth once d* OMEPRAZOLE 20 MG CAPSULE,NEDA* Take 2 capsules by mouth amy* BUSPIRONE 10 MG TABLET Take 1 tablet by mouth three * PROPRANOLOL ER 60 MG CAPSULE,* TAKE 1 CAPSULE BY MOUTH ONCE * CLONIDINE HCL 0.1 MG TABLET Take 1 tablet by mouth twice * SUMATRIPTAN 100 MG TABLET Take 1 tablet by mouth as nee* ZONISAMIDE 50 MG CAPSULE Take 1 capsule in the morning* ONDANSETRON HCL 8 MG TABLET Take 1 tablet by mouth every * GABAPENTIN 300 MG CAPSULE TAKE 3 CAPSULES BY MOUTH TWIC* BLOOD PRESSURE MONITOR KIT Home blood pressure monitor t* Progress Notes: Latasha Koroma, PT 03/13/2017 2:03 PM Signed Episode Visit Count: 1 Therapist That Will Oversee The Plan Of Care: Latasah Koroma Start of Care Date: 03/13/17 Onset Date: 12/11/17 Plan of Care Certification Date: 03/13/17 Patient Identified by Name and Date of : Yes REHABILITATION AND SPORTS THERAPY PHYSICAL THERAPY EVALUATION PLAN OF CARE: Assessment: Sky Musa presents with the chief complaint of pain in left elbow forearm. Sx consistent with lateral expicondylitis but d/t guarding has restriction of ROM at shoulder as well She presents with impairments of decreased elbow and shld ROM and UE function. She may benefit from skilled therapy services to improve deficits and return to prior functional status. Prognosis: Good Good due to: current objective clinical presentation Goals for Episode of Care: created on 03/13/17 through 04/10/17 [place] in home exercise program. Patient will decrease pain to 2/10 with functional activities Patient will increase active ROM of left UE to equal right to allow pt to improved performance of ADLs. Patient will increase strength of left UE to 4+/5 to allow for perform ADLs. Perform lifting and reaching with decreased report of symptoms/pain in 4 weeks. G CODE REPORTING Based on clinical assessment and the score on the Quick Dash Assessment Tool, the G code and corresponding severity modifiers are documented below. Evaluation: 03/13/2017 Current Status: Carrying, Moving and Handling Objects: G8984 CK 40-59% impaired Goal Status: Carrying, Moving and Handling Objects: G8985 CJ 20-39% impaired Planned Interventions, Frequency, and Duration: Current Frequency: 2x/week Duration: 4 weeks Total Number of Visits Planned: 8 Patient to be see for Planned Treatment Interventions: Therapeutic exercise;Manual therapy;Patient/Family/Caregiver Education ( no ultrasound secondary to loop recorder) PLAN FOR NEXT VISIT: Will advance shld ROM and soft tissue mobilization as tolerated Patient demonstrates good understanding of plan of care and treatment. The above goals and plan of care were discussed and agreed upon by patient/family. SUBJECTIVE: Sky Musa is a 41 year old female seen today for Elbow pain above and below lateral epicondyle Functional Limitations: ( gripping , lifting, reaching, reaching overhead behind back) Prior Level of Function: Independent without limitations Patient Goals: alleviate pain Intake Information: Prescription present Previous Treatment: ( strap, ice, heat, pressure points) Relevant History Right or Left Handed: Right Employment: Medically Disabled Recreation / Current Exercise: walking Hobbies / Interests: sewing Home Environment Patient Lives With: Significant Other Pain Score: 7/10 Pain Location: Elbow - Left;Forearm - Left Description: Throbbing;Sharp Frequency: Continuous Post Treatment Pain Score: 5/10 Pain Location: Elbow - Left Post Treatment Pain Description: Aching OBJECTIVE MEASURES WITH LEVEL OF FUNCTION: Elbow Observations L Elbow Presents with: ( guarded position) L Elbow/Wrist Palpation Tenderness: Lateral epicondyle UE AROM R Shoulder Flex: 165 Degrees R Shoulder ABduction: 175 Degrees R Elbow Extension: 0 Degrees R Elbow Flexion: 140 Degrees R Wrist Extension: 80 Degrees R Wrist Flexion: 70 Degrees L Shoulder Flex: 123 Degrees L Shoulder ABduction: 80 Degrees L Elbow Extension: -30 L Elbow Flexion: 90 Degrees L Wrist Extension: 40 Degrees L Wrist Flexion: 38 Degrees UE Strength L UE Strength: ( not tested d/t pain) Special Tests - Elbow Elbow/Wrist Special Tests: Lateral Epicondyle Test ( positive) Education: Education Learning Preferences: Demonstration;Explanation;Performance;Printed Materials Barriers: None Learning/educational needs: Home exercise program;Plan of Care Education Provided: Yes, see treatment interventions for education provided Education Provided To: Patient Education Mode/Type: Demonstration;Explanation/Discussion;Literature/Printed Materials;Performance Response to Education/Teach Back: States/Identifies TREATMENT: Evaluation Therapeutic Exercise: 1: shld michael for elevation 1x10 2: wrist extensor stretch 30 sec x3 with arm supported on table 3: lacrosse ball mobilizaiton x5 min. Skilled Intervention: Patient was educated in proper exercise technique and purpose for exercises. Skilled judgment was provided in selection of appropriate interventions. Provided written instruction for home exercise program to facilitate proper performance and compliance. Correct performance of therapeutic exercises was facilitated with verbal and visual cuing. Educated patient on rationale for performing exercises in regards to increase ease of ADL and ROM and function Billing: [facility]: Evaluation - Low Complexity (63035) Therapeutic Exercise (08326): 1:1 time: 20 minutes (1 unit: 8-22 mins) Total time: 40 minutes Latasha Koroma PT US ABD RIGHT UPPER Observed: 03/13/2017 Status: F Source: [facility] 8:57 AM [facility] REPOSITORY * * *Final Report* * * DATE OF EXAM: Mar 13 2017 8:57AM [facility] 1032 - US ABD RIGHT UPPER QUADRANT / PROCEDURE REASON: multiple diagnoses * * * * Physician Interpretation * * * * RIGHT UPPER QUADRANT ABDOMINAL ULTRASOUND HISTORY: Gastro-esophageal reflux disease without esophagitis Chest pain, unspecified TECHNIQUE:Ultrasound examination of the right upper quadrant of the abdomen. Grayscale and color Doppler images. Images were obtained and stored in a permanent archive. COMPARISON: 03/19/2016 RESULT: LIVER: The liver parenchyma again is diffusely borderline increased in echogenicity, possibly mild fatty liver. No focal hepatic lesions are seen. PANCREAS: Not visualized because of bowel gas. GALLBLADDER: There is no cholelithiasis. There is no gallbladder wall thickening. There is no pericholecystic fluid. BILIARY DUCTAL SYSTEM: There is no intrahepatic biliary ductal dilatation. The common duct is normal caliber and measures less than 5 mm in diameter. RIGHT KIDNEY: Limited views of the right kidney show no hydronephrosis. No ascites is seen. - IMPRESSION: Possible mild fatty liver again seen. No evidence of cholelithiasis or biliary dilatation. Emblem Cutter: SHIRA Transcribe Date/Time: Mar 13 2017 9:09A Dictated by : SAIRA SANCHEZ MD This examination was interpreted and the report reviewed and electronically signed by: SAIRA SANCHEZ MD on Mar 13 2017 9:51AM EST [id number] Observed: 03/13/2017 Status: COMPLETED Source: [place] 8:31 AM [facility] REPOSITORY HNO ID: [id number] Author: Perlita Herndon Service: (none) Author Type: (none) Type: Progress Notes Filed: 03/13/2017 8:58 AM Note Text: Radiology Service Progress Note PATIENT NAME: Sky Musa DATE OF SERVICE: March 13, 2017 TIME: 8:31 AM PATIENT IDENTITY VERIFICATION COMPLETED USING TWO (2) METHODS: Patient confirmed name verbally and Date of . PATIENT GENDER DATA: Female. status: : No status: NO. PATIENT RELEVANT IMPLANT DATA REVIEWED: Yes RADIOLOGY DEPARTMENT: Ultrasound PERIPHERAL IV DATA: Not applicable SIGNED BY: Perlita Herndon March 13, 2017 8:31 AM PROGRESS Observed: 03/10/2017 Status: COMPLETED Source: [place] 2:05 PM [facility] REPOSITORY HNO ID: [id number] Author: Iron Ruiz Service: (none) Author Type: Physician Order Selector Type: Progress Notes Filed: 03/10/2017 7:00 PM Note Text: 41 year old female with asthma, anxiety, concussion, post-traumatic migraines, vasovagal syncope c/o 1. Persistent pain right arm. Hurts to lift, twist. 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 Doing trigger points. Wearing brace. 2. Sharp jagged pains in chest mid sternal and under left breast. Thinks loop recorder has moved. Occurring everyday, last at most 30 minute or less. Feels like somebody sucker punched and knocked wind out of me. Associates with heart burn. Getting acid brash about 2-3 time s a week or less. Omeprazole 20mg daily. Prn Occupational Therapist went [place]. She is in need of new referral. 3. Anxiety A lot of stress. Son locked up for accusation shaken baby syndrome in grandson. stroke, 2 heart attacks, stents in last few month. Mood is low, tense, irritatable. Adina Garces. Taking medications as ordered. Feels that she would like to increase dose with BuSpar due to circumstances. Having poor sleep. No thoughts of self-harm or harm to others. 4. Vasovagal syncope: No recent events. Patient was last seen by Dr. Morse in September. Continues on Zonegran, unclear whether seizure or syncopal related. 5. HTN: Continues on propranolol and clonidine without complication. HISTORIES FAMILY HISTORY Problem Relation Age of Onset - lupus [Other] [OTHER] Maternal Uncle - unknown [Other] [OTHER] Father - htn [Other] [OTHER] Mother - hyperlipidemia [Other] [OTHER] Mother - Cancer Maternal Aunt HEEL STIFFENER - lung cancer [Other] [OTHER] Maternal Uncle - Coronary Artery Disease Maternal Grandmother - Coronary Artery Disease Maternal Grandfather - Coronary Artery Disease Paternal Grandmother - Coronary Artery Disease Paternal Grandfather - Diabetes Brother - Hypertension Brother - Cancer - Cancer Maternal Uncle bone PAST MEDICAL HISTORY Diagnosis Date - Asthma - Depression Dez in [place] Dr. Clark, Counselor Adina - Headaches due to old head injury - Seizures (HCC) Neurologist Dr. 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 Social History Main Topics Smoking status: Former Smoker Packs/day: 0.00 Years: 2.00 Smokeless status: Never Used Comment: A couple cigarettes a day for two years Alcohol use: No Drug use: No Sexual activity: Yes Partners with: Male control/protection: None ACTIVE PROBLEM LIST Asthma Menorrhagia Dysmenorrhea Fibroid Vasovagal Syncope Hypercholesterolemia Status Post Placement of Implantable Loop Recorder Chronic Bilateral Low Back Pain Without Sciatica Chronic Pain of Left Ankle Gastroesophageal Reflux Disease Adjustment Reaction With Anxiety and Depression Migraine Without Aura and Without Status Migrainosus, Not Intractable Headaches Due to Old Head Injury Seizures (Hcc) Syncope Vitamin D Deficiency Current Outpatient Prescriptions: VENTOLIN HFA 90 mcg/actuation inhaler INHALE 2 PUFFS INSTRUCTED EVERY 4 HOURS NEEDED. Disp: 54 Inhaler Rfl: 0 propranolol ER (INDERAL LA) 60 mg 24 hr capsule TAKE 1 CAPSULE BY MOUTH ONCE DAILY. Disp: 90 capsule Rfl: 1 cloNIDine HCl (CATAPRES) 0.1 mg tablet Take 1 tablet by mouth twice daily. For headaches Disp: 180 tablet Rfl: 1 FLOVENT HFA 220 mcg/actuation inhaler INHALE 1 PUFF INSTRUCTED TWICE DAILY. Disp: 36 Inhaler Rfl: 1 busPIRone (BUSPAR) 5 mg tablet TAKE 1 TABLET BY MOUTH THREE TIMES DAILY. Disp: 270 tablet Rfl: 1 sertraline (ZOLOFT) 100 mg tablet TAKE 1 TABLET BY MOUTH ONCE DAILY. Disp: 90 tablet Rfl: 1 SUMAtriptan (IMITREX) 100 mg tablet Take 1 tablet by mouth as needed for Migraine Headache (see administration instructions). Disp: 9 tablet Rfl: 11 zonisamide (ZONEGRAN) 50 mg capsule Take 1 capsule in the morning and 2 capsules at bedtime Disp: 270 capsule Rfl: 3 ondansetron (ZOFRAN) 8 mg tablet Take 1 tablet by mouth every 8 hours as needed for Nausea/Vomiting. Disp: 45 tablet Rfl: 1 gabapentin (NEURONTIN) 300 mg capsule TAKE 3 CAPSULES BY MOUTH TWICE DAILY. Disp: 540 capsule Rfl: 3 desloratadine (CLARINEX) 5 mg tablet Take 1 tablet by mouth once daily. Disp: 90 tablet Rfl: 1 omeprazole (PRILOSEC) 20 mg capsule Take 1 capsule by mouth daily before breakfast. 1/2 hr before meal. Disp: 90 capsule Rfl: 1 Blood Pressure Monitor kit Home blood pressure monitor to use as directed. Disp: 1 Kit Rfl: 0 No current facility-administered medications for this visit. ONE PNEUMOVAX PRIOR TO AGE 65 due on 06/27/1994 MAMMOGRAM due on 11/08/2016 EXAM: BP 118/72 Pulse 80 Temp 36.9 ?C (98.4 ?F) (Tympanic) Resp 24 Wt 110.7 kg (244 lb) LMP 11/26/2012 BMI 35.01 kg/m2 Pleasant adult woman in no acute distress. Alert and oriented all spheres. Normal affect and cognition. Speech normal. No deficits to learning or comprehension. Patient's mood is euthymic. Affect is broad. Makes good eye contact, smiles and jokes and laughs intermittently. Skin warm, dry, pink to lips and nailbeds. Normal turgor. Respirations regular and unlabored. HEENT WNL. TM's clear. Nose and oropharynx free from injection or lesion. No cervical lymph nodes. Thyroid non-tender, no masses Chest CTA. HRRR without murmur or gallop. Patient has tenderness bilateral chest wall been on years where she says she's having pain. Extrem: no clubbing, cyanosis, edema. Extremities are warm and pink with prompt capillary refill. Tenderness in left lateral epicondyles and pronator muscles of the forearm, trigger points in the triceps as well. Complains of pain with resistance to finger extension, wrist extension and supination. Patient is having difficulty completely opening her arm. She does have tender trigger points also in bicipital and biceps muscles. OMT: With request, myofascial release to tender trigger points in forearm and upper arm with significant improvement, ability to completely extend arm and improvement on supination and resistance to flexion of the hand. ASSESSMENT/PLAN: 1. Hypercholesterolemia - ICD9: 272.0, ICD10: E78.00 (primary diagnosis) - to be determined upon return of lab results 2. Essential hypertension - ICD9: 401.9, ICD10: I10 - good control - Continue current medication(s) - Recommended regular aerobic exercise. - Goal of BP <130/80 - DESLORATADINE 5 MG TABLET - COMP METABOLIC PANEL 3. Status post placement of implantable loop recorder - ICD9: V45.09, ICD10: Z95.818 cardiology consult for follow-up 4. Gastroesophageal reflux disease, esophagitis presence not specified - ICD9: 530.81, ICD10: K21.9 Increase omeprazole to 40 mg daily and monitor current symptoms. - US ABD RT UPPER QUADRANT - COMP METABOLIC PANEL - LIPASE BLD 5. Adjustment reaction with anxiety and depression - ICD9: 309.28, ICD10: F43.23 continue Zoloft 100 mg. Increase BuSpar to 10 mg 3 times a day and continue to titrate upward if anxiety is not controlled. Patient is seeing counselor and has follow-up. 6. Chest pain, unspecified type - ICD9: 786.50, ICD10: R07.9 Patient does not have significant risk factors, is still premenopausal. I suspect symptoms are more related to anxiety and possibly reflux. I explained to the patient the loop recorder would not enter the inside of her chest almost were some very unusual circumstance. She may be having some muscular tenderness. - Patient is advised unusual protocol for any sustained chest pain which would be to call 911, take 4 baby aspirin and proceed to the emergency room. - Electrocardiogram: An ECG today showed normal sinus rhythm without ST changes. - CONSULT TO CARDIOLOGY - ECG COMPLETE W INTERPRETATION - US ABD RT UPPER QUADRANT - COMP METABOLIC PANEL - LIPASE BLD 7. Lateral epicondylitis of left elbow - ICD9: 726.32, ICD10: M77.12 myofascial release with improvement. Offered cortisone injection, physical therapy, referral. Patient chose physical therapy. We'll see how she does in follow-up in 4-6 weeks. . - CONSULT TO PHYSICAL THERAPY 8. Seizures (HCC) - ICD9: 780.39, ICD10: R56.9 Follows with Madonna Wilson neurology. No recent events. 9. Vasovagal syncope - ICD9: 780.2, ICD10: R55 Again no recent events. Loop recorder is maintained and being read accurately. Consult to cardiology for supervision. - CONSULT TO CARDIOLOGY Patient (guardian) expressed understanding of instructions and agrees with plan. LEENA CabreraOV Observed: 03/10/2017 Status: COMPLETED Source: [place] 1:40 PM [facility] REPOSITORY Office Visit (FAMPWS) SKY MUSA ([id number]) 1975 F Date Time Provider Department 03/10/17 1:40 PM Iron RUIZ) FAMPWS During your visit today, we recorded the following information about you: Temperature Pulse Respiration Blood pressure 98.4 degrees 80/minute 24/minute 118/72 Weight 110.7 kg Iron Ruiz PA-C 03/10/2017 7:00 PM Addendum 41 year old female with asthma, anxiety, concussion, post- traumatic migraines, vasovagal syncope c/o 1. Persistent pain right arm. Hurts to lift, twist. 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 Doing trigger points. Wearing brace. 2. Sharp jagged pains in chest mid sternal and under left breast. Thinks loop recorder has moved. Occurring everyday, last at most 30 minute or less. Feels like ANDquot;somebody sucker punched and knocked wind out of meANDquot;. Associates with heart burn. Getting acid brash about 2-3 time s a week or less. Omeprazole 20mg daily. Prn Occupational Therapist went [place]. She is in need of new referral. 3. Anxiety A lot of stress. Son locked up for accusation shaken baby syndrome in grandson. stroke, 2 heart attacks, stents in last few month. Mood is low, tense, irritatable. Adina Garces. Taking medications as ordered. Feels that she would like to increase dose with BuSpar due to circumstances. Having poor sleep. No thoughts of self-harm or harm to others. 4. Vasovagal syncope: No recent events. Patient was last seen by Dr. Morse in September. Continues on Zonegran, unclear whether seizure or syncopal related. 5. HTN: Continues on propranolol and clonidine without complication. HISTORIES FAMILY HISTORY Problem Relation Age of Onset - lupus [Other] [OTHER] Maternal Uncle - unknown [Other] [OTHER] Father - htn [Other] [OTHER] Mother - hyperlipidemia [Other] [OTHER] Mother - Cancer Maternal Aunt HEEL STIFFENER - lung cancer [Other] [OTHER] Maternal Uncle - Coronary Artery Disease Maternal Grandmother - Coronary Artery Disease Maternal Grandfather - Coronary Artery Disease Paternal Grandmother - Coronary Artery Disease Paternal Grandfather - Diabetes Brother - Hypertension Brother - Cancer - Cancer Maternal Uncle bone PAST MEDICAL HISTORY Diagnosis Date - Asthma - Depression Dez in [place] Dr. Clark, Counselor Adina - Headaches due to old head injury - Seizures (HCC) Neurologist Dr. 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 Social History Main Topics Smoking status: Former Smoker Packs/day: 0.00 Years: 2.00 Smokeless status: Never Used Comment: A couple cigarettes a day for two years Alcohol use: No Drug use: No Sexual activity: Yes Partners with: Male control/protection: None ACTIVE PROBLEM LIST Asthma Menorrhagia Dysmenorrhea Fibroid Vasovagal Syncope Hypercholesterolemia Status Post Placement of Implantable Loop Recorder Chronic Bilateral Low Back Pain Without Sciatica Chronic Pain of Left Ankle Gastroesophageal Reflux Disease Adjustment Reaction With Anxiety and Depression Migraine Without Aura and Without Status Migrainosus, Not Intractable Headaches Due to Old Head Injury Seizures (Hcc) Syncope Vitamin D Deficiency Current Outpatient Prescriptions: VENTOLIN HFA 90 mcg/actuation inhaler INHALE 2 PUFFS INSTRUCTED EVERY 4 HOURS NEEDED. Disp: 54 Inhaler Rfl: 0 propranolol ER (INDERAL LA) 60 mg 24 hr capsule TAKE 1 CAPSULE BY MOUTH ONCE DAILY. Disp: 90 capsule Rfl: 1 cloNIDine HCl (CATAPRES) 0.1 mg tablet Take 1 tablet by mouth twice daily. For headaches Disp: 180 tablet Rfl: 1 FLOVENT HFA 220 mcg/actuation inhaler INHALE 1 PUFF INSTRUCTED TWICE DAILY. Disp: 36 Inhaler Rfl: 1 busPIRone (BUSPAR) 5 mg tablet TAKE 1 TABLET BY MOUTH THREE TIMES DAILY. Disp: 270 tablet Rfl: 1 sertraline (ZOLOFT) 100 mg tablet TAKE 1 TABLET BY MOUTH ONCE DAILY. Disp: 90 tablet Rfl: 1 SUMAtriptan (IMITREX) 100 mg tablet Take 1 tablet by mouth as needed for Migraine Headache (see administration instructions). Disp: 9 tablet Rfl: 11 zonisamide (ZONEGRAN) 50 mg capsule Take 1 capsule in the morning and 2 capsules at bedtime Disp: 270 capsule Rfl: 3 ondansetron (ZOFRAN) 8 mg tablet Take 1 tablet by mouth every 8 hours as needed for Nausea/Vomiting. Disp: 45 tablet Rfl: 1 gabapentin (NEURONTIN) 300 mg capsule TAKE 3 CAPSULES BY MOUTH TWICE DAILY. Disp: 540 capsule Rfl: 3 desloratadine (CLARINEX) 5 mg tablet Take 1 tablet by mouth once daily. Disp: 90 tablet Rfl: 1 omeprazole (PRILOSEC) 20 mg capsule Take 1 capsule by mouth daily before breakfast. 1/2 hr before meal. Disp: 90 capsule Rfl: 1 Blood Pressure Monitor kit Home blood pressure monitor to use as directed. Disp: 1 Kit Rfl: 0 No current facility-administered medications for this visit. ONE PNEUMOVAX PRIOR TO AGE 65 due on 06/27/1994 MAMMOGRAM due on 11/08/2016 EXAM: BP 118/72 Pulse 80 Temp 36.9 ?C (98.4 ?F) (Tympanic) Resp 24 Wt 110.7 kg (244 lb) LMP 11/26/2012 BMI 35.01 kg/m2 Pleasant adult woman in no acute distress. Alert and oriented all spheres. Normal affect and cognition. Speech normal. No deficits to learning or comprehension. Patient's mood is euthymic. Affect is broad. Makes good eye contact, smiles and jokes and laughs intermittently. Skin warm, dry, pink to lips and nailbeds. Normal turgor. Respirations regular and unlabored. HEENT WNL. TM's clear. Nose and oropharynx free from injection or lesion. No cervical lymph nodes. Thyroid non-tender, no masses Chest CTA. HRRR without murmur or gallop. Patient has tenderness bilateral chest wall been on years where she says she's having pain. Extrem: no clubbing, cyanosis, edema. Extremities are warm and pink with prompt capillary refill. Tenderness in left lateral epicondyles and pronator muscles of the forearm, trigger points in the triceps as well. Complains of pain with resistance to finger extension, wrist extension and supination. Patient is having difficulty completely opening her arm. She does have tender trigger points also in bicipital and biceps muscles. OMT: With request, myofascial release to tender trigger points in forearm and upper arm with significant improvement, ability to completely extend arm and improvement on supination and resistance to flexion of the hand. ASSESSMENT/PLAN: 1. Hypercholesterolemia - ICD9: 272.0, ICD10: E78.00 (primary diagnosis) - to be determined upon return of lab results 2. Essential hypertension - ICD9: 401.9, ICD10: I10 - good control - Continue current medication(s) - Recommended regular aerobic exercise. - Goal of BP ANDlt;130/80 - DESLORATADINE 5 MG TABLET - COMP METABOLIC PANEL 3. Status post placement of implantable loop recorder - ICD9: V45.09, ICD10: Z95.818 cardiology consult for follow-up 4. Gastroesophageal reflux disease, esophagitis presence not specified - ICD9: 530.81, ICD10: K21.9 Increase omeprazole to 40 mg daily and monitor current symptoms. - US ABD RT UPPER QUADRANT - COMP METABOLIC PANEL - LIPASE BLD 5. Adjustment reaction with anxiety and depression - ICD9: 309.28, ICD10: F43.23 continue Zoloft 100 mg. Increase BuSpar to 10 mg 3 times a day and continue to titrate upward if anxiety is not controlled. Patient is seeing counselor and has follow-up. 6. Chest pain, unspecified type - ICD9: 786.50, ICD10: R07.9 Patient does not have significant risk factors, is still premenopausal. I suspect symptoms are more related to anxiety and possibly reflux. I explained to the patient the loop recorder would not enter the inside of her chest almost were some very unusual circumstance. She may be having some muscular tenderness. - Patient is advised unusual protocol for any sustained chest pain which would be to call 911, take 4 baby aspirin and proceed to the emergency room. - Electrocardiogram: An ECG today showed normal sinus rhythm without ST changes. - CONSULT TO CARDIOLOGY - ECG COMPLETE W INTERPRETATION - US ABD RT UPPER QUADRANT - COMP METABOLIC PANEL - LIPASE BLD 7. Lateral epicondylitis of left elbow - ICD9: 726.32, ICD10: M77.12 myofascial release with improvement. Offered cortisone injection, physical therapy, referral. Patient chose physical therapy. We'll see how she does in follow-up in 4-6 weeks. . - CONSULT TO PHYSICAL THERAPY 8. Seizures (HCC) - ICD9: 780.39, ICD10: R56.9 Follows with Madonna Wilson neurology. No recent events. 9. Vasovagal syncope - ICD9: 780.2, ICD10: R55 Again no recent events. Loop recorder is maintained and being read accurately. Consult to cardiology for supervision. - CONSULT TO CARDIOLOGY Patient (guardian) expressed understanding of instructions and agrees with plan. M Cynthia Ruiz PA-C Referring Provider: SELF [200] Allergies As of Date: 03/10/2017 Noted Allergy Reaction LATEX 06/25/2012 2 - Rash 7 - Swelling Comments: Latex condoms, caused vaginal symptoms only PENICILLINS 06/11/2012 7 - Swelling Date Reviewed: 03/10/2017 Reviewed by: Bella Teixeira LPN - Fully Assessed Reason for Visit: Recheck [92] Cmt: left tennis elbow GERD [548] Cmt: states it has heartburn every day and at times feels short of breath Primary Visit Diagnosis:Hypercholesterolemia [E78.00] Other Visit Diagnoses:Essential hypertension [I10] Status post placement of implantable loop recorder [Z95.818] Gastroesophageal reflux disease, esophagitis presence not specified [K21.9] Adjustment reaction with anxiety and depression [F43.23] Chest pain, unspecified type [R07.9] Lateral epicondylitis of left elbow [M77.12] Seizures (HCC) [R56.9] Vasovagal syncope [R55] Order(s):albuterol HFA (VENTOLIN HFA) 90 mcg/actuation inhalerInhale 2 Puffs as instructed every 4 hours as needed.Disp: 54 InhalerRfl: 0 fluticasone (FLOVENT HFA) 220 mcg/actuation inhalerInhale 1 Puff as instructed twice daily.Disp: 36 InhalerRfl: 1 sertraline (ZOLOFT) 100 mg tabletTake 1 tablet by mouth once daily.Disp: 90 tabletRfl: 1 desloratadine (CLARINEX) 5 mg tabletTake 1 tablet by mouth once daily.Disp: 90 tabletRfl: 1 omeprazole (PRILOSEC) 20 mg capsuleTake 2 capsules by mouth daily before breakfast. 1/2 hr before meal.Disp: 180 capsuleRfl: 1 CONSULT TO CARDIOLOGY [0002] Order #: [id number]: 1 busPIRone (BUSPAR) 10 mg tabletTake 1 tablet by mouth three times daily.Disp: 270 tabletRfl: 1 ECG COMPLETE W INTERPRETATION [ECG01] Order #: [id number] FUTURE CONSULT TO PHYSICAL THERAPY [9386] Order #: [id number]: 1 US ABD RT UPPER QUADRANT [0570993] Order #: [id number] FUTURE COMP METABOLIC PANEL [SQCMP] Order #: [id number] FUTURE LIPASE BLD [SQLIPA] Order #: [id number] FUTURE Prescriptions as of 03/10/2017 Sig: ALBUTEROL SULFATE HFA 90 MCG/* Inhale 2 Puffs as instructed * FLUTICASONE 220 MCG/ACTUATION* Inhale 1 Puff as instructed t* SERTRALINE 100 MG TABLET Take 1 tablet by mouth once d* DESLORATADINE 5 MG TABLET Take 1 tablet by mouth once d* OMEPRAZOLE 20 MG CAPSULE,NEDA* Take 2 capsules by mouth amy* PROPRANOLOL ER 60 MG CAPSULE,* TAKE 1 CAPSULE BY MOUTH ONCE * CLONIDINE HCL 0.1 MG TABLET Take 1 tablet by mouth twice * SUMATRIPTAN 100 MG TABLET Take 1 tablet by mouth as nee* ZONISAMIDE 50 MG CAPSULE Take 1 capsule in the morning* ONDANSETRON HCL 8 MG TABLET Take 1 tablet by mouth every * GABAPENTIN 300 MG CAPSULE TAKE 3 CAPSULES BY MOUTH TWIC* BUSPIRONE 10 MG TABLET Take 1 tablet by mouth three * BLOOD PRESSURE MONITOR KIT Home blood pressure monitor t* Problem List As Of Date 03/10/2017 Noted Resolved Asthma [J45.909] INVALID FOR* Menorrhagia [N92.0] INVALID FOR* Dysmenorrhea [N94.6] INVALID FOR* Fibroid [D25.9] INVALID FOR* Vasovagal syncope [R55] INVALID FOR* More... Hypercholesterolemia [E78.00] INVALID FOR* Status post placement of implantable loop recor*INVALID FOR* Chronic bilateral low back pain without sciatic*INVALID FOR* Chronic pain of left ankle [M25.572, G89.29] INVALID FOR* Gastroesophageal reflux disease [K21.9] INVALID FOR* Adjustment reaction with anxiety and depression*INVALID FOR* Migraine without aura and without status migrai*INVALID FOR* More... 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 More... Vitamin D deficiency [E55.9] Prescriptions ordered this encounter Disp Refills Start End ALBUTEROL SULFATE HFA 90 MCG/ACTUATI* 54 I* 0 03/10/2017 Route: INHALATION Sig: Inhale 2 Puffs as instructed every 4 hours as needed. FLUTICASONE 220 MCG/ACTUATION HFA AE* 36 I* 1 03/10/2017 Route: INHALATION Sig: Inhale 1 Puff as instructed twice daily. SERTRALINE 100 MG TABLET 90 t* 1 03/10/2017 Route: ORAL Sig: Take 1 tablet by mouth once daily. DESLORATADINE 5 MG TABLET 90 t* 1 03/10/2017 Route: ORAL Sig: Take 1 tablet by mouth once daily. OMEPRAZOLE 20 MG CAPSULE,DELAYED REL* 180 * 1 03/10/2017 Route: ORAL Sig: Take 2 capsules by mouth daily before breakfast. 1/2 hr before meal. BUSPIRONE 10 MG TABLET 270 * 1 03/10/2017 Route: ORAL Sig: Take 1 tablet by mouth three times daily. Medications Discontinued During This Encounter omeprazole (PRILOSEC) 20 mg capsule 30 c* 2 08/05/2016 03/10/2017 Route: ORAL Sig: Take 1 capsule by mouth daily before breakfast. Disc: Reason for discontinue is not on file. busPIRone (BUSPAR) 5 mg tablet 270 * 1 11/05/2016 03/10/2017 Sig: TAKE 1 TABLET BY MOUTH THREE TIMES DAILY. Disc: Reason for discontinue is not on file. VENTOLIN HFA 90 mcg/actuation inhaler 54 I* 0 01/07/2017 03/10/2017 Sig: INHALE 2 PUFFS INSTRUCTED EVERY 4 HOURS NEEDED. Disc: Reason for discontinue is not on file. FLOVENT HFA 220 mcg/actuation inhaler 36 I* 1 11/05/2016 03/10/2017 Sig: INHALE 1 PUFF INSTRUCTED TWICE DAILY. Disc: Reason for discontinue is not on file. sertraline (ZOLOFT) 100 mg tablet 90 t* 1 11/05/2016 03/10/2017 Sig: TAKE 1 TABLET BY MOUTH ONCE DAILY. Disc: Reason for discontinue is not on file. desloratadine (CLARINEX) 5 mg tablet 90 t* 1 05/01/2016 03/10/2017 Route: ORAL Sig: Take 1 tablet by mouth once daily. Disc: Reason for discontinue is not on file. omeprazole (PRILOSEC) 20 mg capsule 90 c* 1 05/01/2016 03/10/2017 Route: ORAL Sig: Take 1 capsule by mouth daily before breakfast. 1/2 hr before meal. Disc: Reason for discontinue is not on file. Encounter Status:Closed by Iron RUIZ PA-C on 03/10/17 ALLERGIES ALLERGIES DATE TYPE / CODE NAME / CODE REACTION SEVERITY SOURCE 02/23/2018 Drug Penicillins/U50448 Rash Unknown [facility] Allergy/416 0476(RXNORM) Community 154728([facility] ED CT) Repository 02/23/2018 Drug latex/[id number](R Rash Unknown [place] Allergy/416 XNORM) Community 413987([facility] ED CT) Repository 06/25/2012 DRUG LATEX RASH [facility] INGREDI/[address] [place] 716812(SNOM Repository ED CT) 06/11/2012 Drug PENICILLINS SWELLING [facility] Class/23715 Main [place] 1003(SNOMED Repository CT) Drug/073894 Latex [facility] 003([facility] CT) System Repository Drug/807083 penicillins [facility] 003([facility]) System Repository ENCOUNTERS ENCOUNTERS ADMIT/DISCHARGE ACCOUNT ADMITTING ENCOUNTER LOCATION SOURCE NUMBER CLASS 03/05/2018/03/05/19 [id number] Ambulatory [address] Repository 03/02/2018 [id number] Ambulatory [facility] Hospital ing:LAB Repository 02/23/2018/02/23/19 [id number] Ambulatory BMSBuilding:Andrew [place] [facility] [place].[facility] Repository 02/17/2018/02/17/19 [id number] Ambulatory BMSBuilding:Andrew [place] 19 [facility] Repository 02/11/2018 [id number] Ambulatory BMSBuilding:Andrew [place]mond MS.[facility] Repository 01/07/2018/01/08/20 [id number] Ambulatory [address] Repository 12/24/2017/12/26/19 [id number] Ambulatory [address] Repository 10/24/2017 [id number] Ambulatory BMSBuilding:Andrew Edmond MS.[facility] Repository 10/24/2017/10/25/19 [id number] Ambulatory [address] Hospital ing:CLSP Repository 10/24/2017 [id number] Ambulatory BMSBuilding:W Feli [facility] Repository 10/09/2017 [id number] Ambulatory [facility] Hospital ing:LAB Repository 10/09/2017/10/10/19 [id number] Ambulatory BMSBuilding:B [facility] Repository 10/09/2017/10/10/19 [id number] Ambulatory BMSBuilding:B [place] [facility] Repository 08/12/2017/08/13/19 [id number] Ambulatory BMSBuilding:B [place] 18 [facility] Hospital Repository 06/19/2017 [id number] Ambulatory BMSBuilding:W [facility] Repository 06/18/2017 [id number] Ambulatory [facility] HospitalBuild Hospital ing:PSN Repository 06/17/2017/06/18/19 [id number] Ambulatory BMSBuilding:B [place] 18 [place] Repository 05/26/2017 [id number] Ambulatory [facility] HospitalBuild Hospital ing:SL Repository 05/23/2017 [id number] Ambulatory [facility] HospitalBuild Hospital ing:[facility] Repository 05/23/2017 [id number] Ambulatory BMSBuilding:W [facility] Repository 05/07/2017/05/08/19 [id number] Ambulatory BMSBuilding:B [place] 18 [place].[facility] Repository 04/24/2017 [id number] Ambulatory [facility] HospitalBuild Hospital ing:[facility]S Repository 04/24/2017 [id number] Ambulatory BMSBuilding:W [facility] Repository 04/23/2017 [id number] Ambulatory [facility] HospitalBuild Hospital ing:SL Repository 04/22/2017/04/24/19 [id number] Ambulatory [address] Repository 04/11/2017/04/12/19 [id number] Ambulatory BMSBuilding:B [place] 18 [facility] Repository 04/08/2017 [id number] Ambulatory [facility] HospitalBuild Hospital ing:LAB Repository 04/08/2017/04/08/19 [id number] Ambulatory BMSBuilding:B [place] [facility] Repository 04/08/2017/04/08/19 [id number] Ambulatory [address] Repository 04/07/2017 [id number] Ambulatory BMSBuilding:B [place] MS.[facility] Repository 03/27/2017/03/27/19 [id number] Ambulatory [address] [place] Repository 03/20/2017/03/25/19 [id number] Ambulatory [address] [place] Repository 03/16/2017/03/16/19 [id number] [place], Emergency [address] Regional ing:[facility] EDRoom: Repository 03/13/2017/03/18/19 [id number] Ambulatory [address] [place] Repository 03/13/2017/03/13/19 [id number] Ambulatory [address] [place] Repository 03/10/2017/03/10/19 [id number] Ambulatory [address] [place] Repository 03/10/2017/03/10/19 [id number] Ambulatory [address] Repository PAYERS PAYERS ENCOUNTER GUARANTOR PAYER SUBSCRIBER SOURCE 03/02/2018 SKY A Primary SKY A [place] [id number] Insurance:MEDICARE SOUR[place]OB: [place] PART A [facility] [id number] Hospital [address]Qge: (419) Number: Repository [phone] () [id number] Date:2018-03-02 03/02/2018 Secondary SKY A [place] Insurance:[facility]ICAIDPol [facility] Number: [id number] Hospital [id number] Repository Date:2018-03-02 03/02/2018 Tertiary NOT GIVENUNK [place] Insurance:SELF PAY [facility] Number: Effective Repository Date:2018-03-02 02/23/2018 SKY A Primary SKY A [place] [id number] Insurance:MEDICARE SOURSDOB: [place] PART A [facility] [id number] Hospital [address]Xkt: (419) Number: Repository [phone] () [id number] Date:2017-07-03 02/23/2018 Secondary SKY A [place] Insurance:MEDICAIDPol [facility] Number: [id number] Hospital [id number] Repository Date:2017-07-03 02/23/2018 Tertiary NOT GIVENUNK [place] Insurance:SELF PAY [facility] Number: Effective Repository Date:2018-02-20 02/17/2018 SKY A Primary SKY A [place]eli [id number] Insurance:MEDICARE SOURSDOB: [place] PART A [facility] [id number] Hospital [address]Ynd: (419) Number: Repository [phone] () [id number] Date:2018-02-12 02/17/2018 Secondary SKY A [place] Insurance:MEDICAIDPol SOURSDOB: [facility] Number: [id number] Hospital [id number] Repository Date:2018-02-12 02/17/2018 Tertiary NOT GIVENUNK [place] Insurance:SELF PAY [facility] Number: Effective Repository Date:2018-02-12 02/11/2018 SKY A Primary SKY A [place]eli [id number] Insurance:MEDICARE SOURSDOB: [place] PART A [facility] [id number] Hospital [address]Fgk: (419) Number: Repository [phone] () [id number] Date:2017-08-12 02/11/2018 Secondary SKY A [place] Insurance:MEDICAIDPol SOURSDOB: [facility] Number: [id number] Hospital [id number] Repository Date:2017-08-12 02/11/2018 Tertiary NOT GIVENUNK [place] Insurance:SELF PAY [facility]: Effective Repository Date:2018-02-09 10/24/2017 SKY A Primary SKY A [place] [id number] Insurance:MEDICARE SOURSDOB: [place] PART A [facility] [id number] Hospital [address]Mgk: (419) Number: Repository [phone] () [id number] Date:2017-10-24 10/24/2017 Secondary SKY A [place] Insurance:MEDICAIDPol SOURSDOB: [facility] Number: [id number] Hospital [id number] Repository Date:2017-10-24 10/24/2017 Tertiary NOT GIVENUNK [place] Insurance:SELF PAY [facility] Number: Effective Repository Date:2017-10-24 10/24/2017 SKY A Primary SKY A [place] [id number] Insurance:MEDICARE SOURSDOB: [place] PART A [facility] [id number] Hospital [address]Kbf: (419) Number: Repository [phone] () [id number] Date:2017-10-09 10/24/2017 Secondary SKY A [place] Insurance:MEDICAIDPol SOURSDOB: [facility] ic Number: [id number] Hospital [id number] Repository Date:2017-10-09 10/24/2017 Tertiary NOT GIVENUNK [place] Insurance:SELF PAY [facility] Number: Effective Repository Date:2017-10-09 10/24/2017 SKY A Primary SKY A [place] [id number] Insurance:MEDICARE SOURSDOB: [place] PART A [facility] [id number] Hospital [address]Eqj: (419) Number: Repository [phone] () [id number] Date:2017-10-09 10/24/2017 Secondary SKY A [place] Insurance:MEDICAIDPol SOURSDOB: [facility] ic Number: [id number] Hospital [id number] Repository Date:2017-10-09 10/24/2017 Tertiary NOT GIVENUNK [place] Insurance:SELF PAY [facility] Number: Effective Repository Date:2017-10-24 10/09/2017 SKY A Primary SKY A [place] [id number] Insurance:MEDICARE SOURSDOB: [place] PART A [facility] [id number] Hospital [address]Yzr: (419) Number: Repository [phone] () [id number] Date:2017-10-09 10/09/2017 Secondary SKY A [place] Insurance:MEDICAIDPol SOURSDOB: [facility] ic Number: [id number] Hospital [id number] Repository Date:2017-10-09 10/09/2017 Tertiary NOT GIVENUNK [place] Insurance:SELF PAY [facility] Number: Effective Repository Date:2017-10-09 10/09/2017 SKY A Primary SKY A [place] [id number] Insurance:MEDICARE SOURSDOB: [place] PART A [facility] [id number] Hospital [address]Wru: (419) Number: Repository [phone] () [id number] Date:2017-04-08 10/09/2017 Secondary SKY A Feli Insurance:MEDICAIDPol SOURSDOB: [facility] icy Number: [id number] Hospital [id number] Repository Date:2017-04-08 10/09/2017 Tertiary NOT GIVENUNK Feli Insurance:SELF PAY [facility] Number: Effective Repository Date:2017-10-08 10/09/2017 SKY A Primary SKY A Feli [id number] [address] MAIN Insurance:MEDICARE SOURSDOB: [place] PART A [facility] [id number] Hospital 24536Cii: (419) Number: Repository [phone] () [id number] Date:2017-04-11 10/09/2017 Secondary SKY A Feli Insurance:MEDICAIDPol SOURSDOB: [facility] Number: [id number] Hospital [id number] Repository Date:2017-04-11 10/09/2017 Tertiary NOT GIVENUNK Feli Insurance:SELF PAY [facility] Number: Effective Repository Date:2017-06-12 08/12/2017 SKY A Primary SKY A Feli [id number] [address] MAIN Insurance:MEDICARE SOURSDOB: [place] [facility] [id number] Hospital 88054Trr: (419) Number: Repository [phone] () [id number] Date:2017-05-07 08/12/2017 Secondary SKY A Feli Insurance:MEDICAIDPol SOURSDOB: [facility] Number: [id number] Hospital [id number] Repository Date:2017-05-07 08/12/2017 Tertiary NOT GIVENUNK [place] Insurance:SELF PAY [facility] Number: Effective Repository Date:2017-08-08 06/19/2017 SKY A Primary SKY A Feli [id number] E MAIN Insurance:MEDICARE SOURSDOB: [place] [facility] [id number] Hospital 21855Kum: (419) Number: Repository [phone] () [id number] Date:2017-05-07 06/19/2017 Secondary SKY A [place] Insurance:MEDICAIDPol SOURSDOB: [facility] icy Number: [id number] Hospital [id number] Repository Date:2017-05-07 06/19/2017 Tertiary NOT GIVENUNK Feli Insurance:SELF PAY [facility] Number: Effective Repository Date:2017-06-19 06/18/2017 SKY A Primary SKY A [place] [id number] E MAIN Insurance:MEDICARE SOURSDOB: [place] [facility] [id number] Hospital 95238Tte: (419) Number: Repository [phone] () [id number] Date:2017-05-07 06/18/2017 Secondary SKY A [place] Insurance:MEDICAIDPol SOURSDOB: [facility] ic Number: [id number] Hospital [id number] Repository Date:2017-05-07 06/18/2017 Tertiary NOT GIVENUNK [place] Insurance:SELF PAY [facility] Number: Effective Repository Date:2017-05-07 06/17/2017 SKY A Primary SKY A [place] [id number] [address] MAIN Insurance:MEDICARE SOURSDOB: [place] [facility] [id number] Hospital 41710Nyr: (419) Number: Repository [phone] () [id number] Date:2017-05-07 06/17/2017 Secondary SKY A [place] Insurance:MEDICAIDPol SOURSDOB: [facility] ic Number: [id number] Hospital [id number] Repository Date:2017-05-07 06/17/2017 Tertiary NOT GIVENUNK [place]eli Insurance:SELF PAY [facility] Number: Effective Repository Date:2017-06-13 05/26/2017 SKY A Primary SKY A Feli [id number] [address] MAIN Insurance:MEDICARE SOURSDOB: [place] [facility] [id number] Hospital 36175Hoq: (419) Number: Repository [phone] () [id number] Date:2017-05-07 05/26/2017 Secondary SKY A [place] Insurance:MEDICAIDPol SOURSDOB: [facility] icy Number: [id number] Hospital [id number] Repository Date:2017-05-07 05/26/2017 Tertiary NOT GIVENUNK [place] Insurance:SELF PAY [facility] Number: Effective Repository Date:2017-05-07 05/23/2017 SKY A Primary SKY A [place] [id number] [address] MAIN Insurance:MEDICARE SOURSDOB: [place] [facility] [id number] Hospital 41309Lcx: (419) Number: Repository [phone] () [id number] Date:2017-04-08 05/23/2017 Secondary SKY A Feli Insurance:MEDICAIDPol SOURSDOB: [facility] ic Number: [id number] Hospital [id number] Repository Date:2017-04-08 05/23/2017 Tertiary NOT GIVENUNK [place]eli Insurance:SELF PAY [facility] Number: Effective Repository Date:2017-04-08 05/23/2017 SKY A Primary SKY A [place] [id number] E MAIN Insurance:MEDICARE SOURSDOB: [place] [facility] [id number] Hospital 12310Auw: (419) Number: Repository [phone] () [id number] Date:2017-04-08 05/23/2017 Secondary SKY A [place] Insurance:MEDICAIDPol SOURSDOB: [facility] ic Number: [id number] Hospital [id number] Repository Date:2017-04-08 05/23/2017 Tertiary NOT GIVENUNK [place] Insurance:SELF PAY [facility] Number: Effective Repository Date:2017-05-23 05/07/2017 SKY A Primary SKY A Feli [id number] E MAIN Insurance:MEDICARE SOURSDOB: [place] [facility] [id number] Hospital 39143Eyk: (419) Number: Repository [phone] () [id number] Date:2017-04-15 05/07/2017 Secondary SKY A [place]eli Insurance:MEDICAIDPol SOURSDOB: [facility] ic Number: [id number] Hospital [id number] Repository Date:2017-04-15 05/07/2017 Tertiary NOT GIVENUNK [place] Insurance:SELF PAY [facility] Number: Effective Repository Date:2017-04-30 04/24/2017 SKY A Primary SKY A Feli [id number] E MAIN Insurance:MEDICARE SOURSDOB: [place] [facility] [id number] Hospital 17363Kic: (419) Number: Repository [phone] () [id number] Date:2017-04-08 04/24/2017 Secondary SKY A [place] Insurance:MEDICAIDPol SOURSDOB: [facility] icy Number: [id number] Hospital [id number] Repository Date:2017-04-08 04/24/2017 Tertiary NOT GIVENUNK [place] Insurance:SELF PAY [facility] Number: Effective Repository Date:2017-04-08 04/24/2017 SKY A Primary SKY A [place] [id number] E MAIN Insurance:MEDICARE SOURSDOB: [place] [facility] [id number] Hospital 87164Ahs: (419) Number: Repository [phone] () [id number] Date:2017-04-08 04/24/2017 Secondary SKY A [place] Insurance:MEDICAIDPol SOURSDOB: [facility] ic Number: [id number] Hospital [id number] Repository Date:2017-04-08 04/24/2017 Tertiary NOT GIVENUNK [place]eli Insurance:SELF PAY [facility] Number: Effective Repository Date:2017-04-24 04/23/2017 SKY A Primary SKY A [place] [id number] [address] MAIN Insurance:MEDICARE SOURSDOB: [place] [facility] [id number] Hospital 50431Lng: (419) Number: Repository [phone] () [id number] Date:2017-04-09 04/23/2017 Secondary SKY A [place] Insurance:MEDICAIDPol SOURSDOB: [facility] ic Number: [id number] Hospital [id number] Repository Date:2017-04-09 04/23/2017 Tertiary NOT GIVENUNK [place] Insurance:SELF PAY [facility] Number: Effective Repository Date:2017-04-09 04/11/2017 SKY A Primary SKY A [place] [id number] E MAIN Insurance:MEDICARE SOURSDOB: [place] [facility] [id number] Hospital 22384Oxx: (419) Number: Repository [phone] () [id number] Date:2017-04-09 04/11/2017 Secondary SKY A [place]eli Insurance:MEDICAIDPol SOURSDOB: [facility] ic Number: [id number] Hospital [id number] Repository Date:2017-04-09 04/11/2017 Tertiary NOT GIVENUNK [place] Insurance:SELF PAY [facility] Number: Effective Repository Date:2017-04-09 04/08/2017 SKY A Primary SKY A Feli [id number] [address] MAIN Insurance:MEDICARE SOURSDOB: [place] [facility] [id number] Hospital 97525Jry: (419) Number: Repository [phone] () [id number] Date:2017-04-08 04/08/2017 Secondary SKY A [place] Insurance:MEDICAIDPol SOURSDOB: [facility] ic Number: [id number] Hospital [id number] Repository Date:2017-04-08 04/08/2017 Tertiary NOT GIVENUNK [place] Insurance:SELF PAY [facility] Number: Effective Repository Date:2017-04-08 04/08/2017 SKY [id number] Primary SKY Feli E MAIN Insurance:MEDICARE SOURSDOB: [place] [facility] [id number] Hospital 00244Kkk: (419) Number: Repository [phone] () [id number] Date:2017-03-13 04/08/2017 Secondary SKY [place] Insurance:MEDICAIDPol SOURSDOB: [facility] ic Number: [id number] Hospital [id number] Repository Date:2017-03-13 04/08/2017 Tertiary NOT GIVENUNK [place] Insurance:SELF PAY [facility] Number: Effective Repository Date:2017-03-13 04/07/2017 SKY [id number] Primary SKY Feli E MAIN Insurance:MEDICARE SOURSDOB: [place] [facility] [id number] Hospital 83583Wky: (419) Number: Repository [phone] () [id number] Date:2017-04-07 04/07/2017 Secondary SKY Feli Insurance:MEDICAIDPol SOURSDOB: [facility] icy Number: [id number] Hospital [id number] Repository Date:2017-04-07 04/07/2017 Tertiary NOT GIVENUNK [place] Insurance:SELF PAY [facility] Number: Effective Repository Date:2017-04-07 03/16/2017 SKY A Primary SKY A [place] SOURSDOB: Insurance:MedicarePol SOURSDOB: [facility] icy Number: Effective [id number] System MAIN [facility], Date:2017-03-16 MAIN Repository [place] [id number]: [id number] Name:CD:[id number] [facility] [id number]: () [id number], [place] [id number]: [phone] () [phone] ([phone]) 03/16/2017 Secondary SKY A [place] Insurance:MedicaidPol SOURSDOB: [facility] icy Number: Effective [id number] System Date:2017-03-16 MAIN Repository [id number], [place] Name:CD:[id number]: [facility] [address] [place], [place] ()Tel: [phone]: [phone]
== END ==
PROVIDERS: Family Provider Physician Assistant; PCP Physician Assistant; Referring Provider Internal Medicine Cardiovascular Disease; Visit Provider Internal Medicine Cardiovascular Disease
DX: R07.9 Chest pain, unspecified (principal); E66.9 Obesity, unspecified; E78.00 Pure hypercholesterolemia, unspecified
CPT/HCPCS: 36415; 80061; 80076

== ENCOUNTER 2018-10-19 13:46 | Emergency (ER) | payer MEDICARE, MEDICAID, SELFPAY ==
[2018-09-21 13:11] VITALS: BMI 34.4
[2018-10-19 13:47] VITALS: BP 130/73; PULSE 74; RESP 18; TEMP 36.6; O2SAT 100; BMI 34.7
[2018-10-19 14:21] LABS: Bacteria 0 SEEN /hpf (None Seen); Mucous, Urine 0 SEEN /hpf (<or=2+); Red Blood Cells-Urine 0 SEEN /hpf (0-5); White Blood Cells 0 SEEN /hpf (0-5)
[2018-10-19 14:23] LABS: Color, Urine Yellow (Yellow); Glucose, Dipstick Normal (Normal); Ketone-Dipstick Negative (Negative); Leukocyte Esterase-Dipstick Negative /ul (Negative); Nitrite-Dipstick Negative (Negative); Occult Blood-Urine Negative /ul (Negative); Protein-Dipstick Negative (Negative); Urine Bilirubin Dipstick Negative (Negative); Urine Clarity Sl. Cloudy (Clear); Urine Urobilinogen Normal (Normal); Urine pH 6.5 (5.0 - 8.0)
[2018-10-19 14:59] LABS: Squamous Epithelial Cells - UA 0-5 SEEN /hpf (5-10)
--- NOTE | 2018-10-19 15:06 | CT_ITS ---
STUDY: CT ABDOMEN AND PELVIS WITH CONTRAST REASON FOR EXAM: Female, 43 years old. Low abdominal pain. RADIATION DOSAGE (If Supplied By Facility): CTDIvol = ( 18.69 ) mGy, DLP = ( 1303.42 ) mGycm TECHNIQUE: Transaxial images were obtained from the dome of the diaphragm to the symphysis pubis with oral contrast. 100 IV/Oral Isovue 300 was administered. Sagittal and coronal images were reconstructed. Individualized dose optimization techniques were used for this CT. COMPARISON: None. FINDINGS: The visualized lung bases are unremarkable. The visualized portions of the heart are within normal limits. Normal liver. Normal gallbladder and extrahepatic biliary system. Normal spleen. Normal pancreas. Normal bilateral adrenal glands. Normal right kidney. Normal left kidney. Evaluation of the GI tract is limited because although oral contrast was given, very little of the GI tract, only a few small bowel loops, are opacified. Grossly normal stomach. No dilated loops of bowel or evidence for obstruction. Cannot exclude segmental thickening of the hugo of the large bowel. Cannot exclude colitis. Moderate to marked diffuse fecal retention. Appendix within normal limits. Normal abdominal aorta. Normal inferior vena cava. Normal retroperitoneum. Normal urinary bladder. There is absence of the uterus consistent with a prior hysterectomy. Normal abdominal wall. Normal osseous structures. CT/Abdomen/Pelvis WITH Contrast IMPRESSION: There is no definite acute abnormality seen. Electronically Signed: Lucho Martinez MD at 17:16 EDT , Service support ,
[2018-10-19] MEDS: 0.9% Normal Saline 1,000 ML 1000 ML IV (15:25)
[2018-10-19] MEDS: Morphine 4 MG/ML Syringe IV (15:25)
[2018-10-19] MEDS: Ondansetron 4 MG/2 ML Vial IV (15:26)
[2018-10-19 15:27] VITALS: BP 110/72; PULSE 68; RESP 16; O2SAT 100
[2018-10-19 15:35] LABS: Absolute Lymphocyte Count 2.56 X10^3/uL (0.83-4.51); Absolute Neutrophil Count 3.9 X10^3/uL (2.0-7.7); Basophil# 0.03 X10^3/uL; Basophil% 0.4 % (0-1); Eosinophil# 0.06 X10^3/uL; Eosinophils% 0.9 % (0-5); Hematocrit 39.6 % (37-47); Hemoglobin 12.7 g/dL (12.0-15.0); Lymphocyte # 2.56 X10^3/ul (4.0); Lymphocyte % 36.7 % (19-41); Mean Corp Hgb Conc 32.1 g/dL (32-36); Mean Corpuscular Hgb 28.9 pg (27.0-32.0); Mean Corpuscular Volume 90.2 fL (81-99); Monocyte# 0.42 X10^3/uL; NRBC Flagged by Analyzer 0 % (0-5); Neutrophil # 3.87 X10^3/uL (2.7-7.7); Neutrophil % 55.6 % (47-70); Platelet Count 234 K/mm3 (150-450); RBC Distribution Width CV 13.3 % (11.6-14.6); RBC Distribution Width SD 44.4 fl (35.1-43.9); Red Blood Count 4.39 M/mm3 (4.2-5.4)
[2018-10-19 15:44] LABS: AST(SGOT) 19 U/L (15-37); Alanine Aminotransfer ALT/SGPT 28 U/L (13-56); Albumin, Serum 3.9 g/dL (3.2-5.0); Alkaline Phosphatase 60 U/L (45-117); Anion Gap 4 (5-15); BUN 15 mg/dL (7-18); BUN/Creat Ratio 14.3 RATIO (10-20); Calcium,Total 8.8 mg/dL (8.5-10.1); Chloride 109 mmol/L (98-107); Creatinine, Serum 1.05 mg/dL (0.55-1.02); EST Glomerular Filtration Rate 61 mL/min (>60); Est Glom Filt Rate - Afr Amer 74 mL/min (>60); Estimated Creatinine Clearance 69.69 ml/min; Globulin 4.2 g/dL (2.2-4.2); Glucose 83 mg/dL (74-106); Lipase 138 U/L (73-393); Potassium 3.6 mmol/L (3.5-5.1); Protein, Total 8.1 g/dL (6.4-8.2); Sodium Level 140 mmol/L (136-145)
--- NOTE | 2018-10-19 17:21 | ED.VISSUMM ---
- ER Visit Summary Date of Service: 10/19/18 Chief Complaint: Abdominal pain History of Present Illness: The patient is a 43 F who sees Rosas Ruiz and Dr. Christofer Marie. She reports that she has lower abdominal pain began 2 weeks ago. The stabbing pain is 10 to 10 hours and out of 10 currently. Is worsened by movement and sitting up. Is relieved by nothing. She reports that she feels bloated. She denies any nausea, vomiting, diarrhea. Her last bowel movement was today. No mild hematochezia. No dysuria frequency. No vaginal bleeding or discharge. She is passing flatus. Physical Examination: Vitals: Stable. Afebrile. General: Well-nourished and well-developed. Head: Normocephalic atraumatic. Neck: Supple, no lymphadenopathy. No JVD. Nontender. Cardiovascular: Regular rate and rhythm. No murmurs. Respiratory: No respiratory distress. Clear to auscultation bilaterally. Abdominal: Soft, mild diffuse tenderness palpation over her lower abdomen, nondistended, normal bowel sounds. No guarding, rebound, or peritoneal signs. Back: Nontender. Extremities: Nontender, no edema. Skin: Normal color, no rash. Neurologic: Alert and oriented ?3. Cranial nerves II through XII are intact. Normal strength and sensation. Psych: Normal affect. Test Results: CBC is normal. Chem-7 shows a chloride of 109 creatinine 1.05. LFTs are normal. Lipase normal. UA is negative. Clinical Impression(s) from Imaging Studies Abdomen/Pelvis CT 10/19/18 15:06 IMPRESSION: There is no definite acute abnormality seen. Electronically Signed: Lucho Martinez MD at 17:16 EDT , Service support , Emergency Department Course and Treatment: Patient was treated with morphine and Zofran IV. She is resting comfortably. Treatment Plan: CT did show a large amount of stool. She will be discharged with magnesium citrate, Bentyl, and Zofran. Instructed to follow-up with her primary care physician in 1 to 2 days if she is not improving after moving her bowels. Return to the emergency department for any worsening symptoms. Disposition: To home in improved and stable condition. Impression: 1. Abdominal pain, uncertain cause. This note was generated with [employer] dictation software. It may contain incorrect words, spelling, and punctuation that were not noted in review of the chart prior to signing ED Disposition - Plan for ED Patient: Disposition: Home or Assisted Living Instructions: ABDOMINAL PAIN, Unknown Cause, (Female) Prescriptions: Dicyclomine HCl [Bentyl] 20 mg PO TIDAC #20 cap Prescription Printed Magnesium Citrate [Citrate Of Magnesia] 300 ml PO X1 #1 bottle Prescription Printed Ondansetron [Zofran Odt] 4 mg PO Q8H PRN PRN #10 tab PRN Reason: Nausea Prescription Printed Referrals: Iron Ruiz PA [Primary Care Provider] - 1-2 Days if not improving Adina Bee MD [STAFF PHYSICIAN] -
[2018-10-19 17:44] VITALS: BP 106/77; PULSE 62; RESP 15; O2SAT 98
== END 2018-10-19 17:45 | disposition home or self-care (01) ==
PROVIDERS: Emergency Provider Emergency Medicine; Family Provider Physician Assistant; PCP Physician Assistant
DX: R10.30 Lower abdominal pain, unspecified (principal); J45.909 Unspecified asthma, uncomplicated
CPT/HCPCS: 74177; 80048; 80076; 81001; 83690; 85025; 96361; 96374; 96375; 99283; Q9967; A4216; J2405

== ENCOUNTER → 2019-02-16 10:50 | Outpatient (CLI) | payer MEDICARE, MEDICAID, SELFPAY ==
[2018-08-25 08:54] VITALS: BMI 34.4
--- NOTE | 2019-02-16 16:57 | PFTCOMP ---
COMPLETE PULMONARY FUNCTION TEST INTERPRETATION Brief HPI: Patient is a 43 year old female, currently under the care of myself, who presents to [facility] for complete pulmonary function tests secondary to diagnosis of asthma. Respiratory therapist reports good effort and reproducible results. Interpretation: Forced expiration spirometry shows no large airways obstructive ventilatory defect with an FEV1 of 124% predicted. There is no significant bronchodilator response by strict ATS criteria. Spirograms are of good quality and plateau normally. The respiratory flow volume loop shows a normal pattern. Lung volumes by body plethysmography show a normal total lung capacity at 5.25 L, 90% predicted. All other lung volumes are within normal limits. Diffusion capacity by carbon monoxide is at the lower limit of normal at 71% predicted. The airway resistance is normal. Compared to previous pulmonary function tests from 06/18/2017, there is been a significant improvement in FVC with decrease in DLCO. Impression: These pulmonary function tests are grossly within normal limits
== END ==
PROVIDERS: Family Provider Physician Assistant; PCP Physician Assistant; Referring Provider Internal Medicine Critical Care Medicine; Visit Provider Internal Medicine Critical Care Medicine
DX: J45.909 Unspecified asthma, uncomplicated (principal); E66.9 Obesity, unspecified
CPT/HCPCS: 94060; 94726; 94729

== ENCOUNTER → 2019-05-17 11:32 | Outpatient (CLI) | payer MEDICARE, MEDICAID, SELFPAY ==
[2019-04-16 11:21] VITALS: BMI 35.4
[2019-05-17 13:27] LABS: AST(SGOT) 19 U/L (15-37); Alanine Aminotransfer ALT/SGPT 23 U/L (13-56); Alkaline Phosphatase 62 U/L (45-117); Bilirubin, Direct 0.09 mg/dL (0.00-0.30); Cholesterol 214 mg/dL (200); Globulin 3.8 g/dL (2.2-4.2); High Density Lipoprotein 59 mg/dL; Protein, Total 7.8 g/dL (6.4-8.2); Triglycerides 130 mg/dL; Very Low Density Lipoprotein 26 mg/dL (5-40)
== END ==
PROVIDERS: PCP Physician Assistant; Referring Provider Internal Medicine Cardiovascular Disease; Visit Provider Internal Medicine Cardiovascular Disease
DX: E78.00 Pure hypercholesterolemia, unspecified (principal)
CPT/HCPCS: 36415; 80061; 80076

== ENCOUNTER 2019-10-19 12:03 | Day surgery (SDC) | payer MEDICARE, MEDICAID, SELFPAY ==
[2019-09-09 10:39] VITALS: BMI 38.1
--- NOTE | 2019-10-18 10:13 | HP.PCM_ITS ---
History and Physical Date of Admission: 10/19/19 Kayleigh Kinsey a 44 year old female who is a consultation requested by Rosas Ruiz PA-C regarding epigastric pain and heartburn. My final recommendations will be communicated back to the requesting provider by way of shared Medical record. The patient saw Rosas on 08/06/19. That note has been reviewed. Patient reported taking Pepto 3 times a day since omeprazole 40mg twice a day wasn't working. Rosas had mentioned EGD. ?? Chief complaint: The patient reports taking omeprazole for years. Getting reflux in spite of taking it. Worsening the past year. ? Usually eats 1-2 times a day. Dinner at between 5-6. She sometimes has an evening snack of popcorn. She takes meds before bed. HS @ 10:00. Sleeps on a regular bed with the head of the bed flat. Stacks pillows. ? Having a bowel movement described as little turds randomly. Had tried Miralax and magnesium citrate. Now on Linzess, even at the highest dose, but it's not working. Nothing for 3 days except cramping and gas. Gaining weight. ? REVIEW OF SYSTEMS: GENERAL: No weight loss, malaise or fevers HEENT: Migraine headaches RESP: Sees Dr. Joy at [facility] for asthma and NGHIA. CARDIO: Sees [facility] for Afib GI: The patient states that her appetite has been good. She does get hungry. There has been no nausea, no vomiting. She denies dysphagia and denies odynophagia. There has been indigestion with heartburn. There has been regurgitation. Bowel habits have been irregular. There has not been diarrhea. There has been constipation. The patient denies rectal bleeding. There has not been melena. Intermittent abdominal pain, described as cramping, that is located in the left lower and right lower quadrant. FANCY PACKER: Negative for abnormal vaginal bleeding, abnormal vaginal discharge. LMP: 11/26/12. All other reviewed and negative other than HPI. ? ? PAST MEDICAL HISTORY ? Asthma ? ? Depression ? ? De[facility] in [place] Dr. Clark, Counselor Adina ? Headaches due to old head injury ? ? NGHIA (obstructive sleep apnea) 05/12/2017 ? Seizures (HCC) ? ? Neurologist Dr. Morse ? Seizures (HCC) ? ? Traumatic brain injury (HCC) ? ? Vasovagal syncope ? ? sees neuro/cardio ? Vitamin D deficiency ? ? ? PAST SURGICAL HISTORY ? LAP VAG HYST <=250 G RMV T/O ? 2012 ? cysto AMAN ? PAST SURGICAL HISTORY OF ? ? ? c section ? PAST SURGICAL HISTORY OF ? ? ? plastic surgery to face ? PAST SURGICAL HISTORY OF ? 05/23/14 ? orif RIGHT ANKLE ? REMOVAL; CARDIAC LOOP RECORDER Left 10/24/2017 ? ? FAMILY HISTORY ? other (lupus) Maternal Uncle ? ? other (unknown) Father ? ? other (htn) Mother ? ? other (hyperlipidemia) Mother ? ? Cancer Maternal Aunt ? ? ACCOUNTING ADVISORY SERVICES MANAGER ? other (lung cancer) Maternal Uncle ? ? Coronary Artery Disease Maternal Grandmother ? ? Coronary Artery Disease Maternal Grandfather ? ? Coronary Artery Disease Paternal Grandmother ? ? Coronary Artery Disease Paternal Grandfather ? ? Diabetes Brother ? ? Hypertension Brother ? ? Cancer Other ? ? Cancer Maternal Uncle ? ? bone ? ? CURRENT MEDICATIONS ? gabapentin (NEURONTIN) 300 mg capsule TAKE 3 CAPSULES BY MOUTH TWICE A DAY 540 capsule 2 ? ondansetron (ZOFRAN) 8 mg tablet Take 1 tablet by mouth every 8 hours as needed for Nausea/Vomiting. 45 tablet 1 ? esomeprazole (NEXIUM) 40 mg capsule Take 1 capsule by mouth daily before breakfast. 1/2 hr before meal. 30 capsule 2 ? propranolol ER (INDERAL LA) 60 mg 24 hr capsule Take 1 capsule by mouth once daily. 90 capsule 3 ? albuterol HFA (VENTOLIN HFA) 90 mcg/actuation inhaler Inhale 2 Puffs as instructed every 4 hours as needed for Wheezing/Shortness of Breath. 1 Inhaler 5 ? busPIRone (BUSPAR) 10 mg tablet Take 1 tablet by mouth three times daily. 270 tablet 1 ? sertraline (ZOLOFT) 100 mg tablet Take 1 tablet by mouth once daily. 90 tablet 1 ? cloNIDine HCl (CATAPRES) 0.1 mg tablet Take 1 tablet by mouth twice daily. For headaches 180 tablet 1 ? linaclotide (LINZESS) 145 mcg capsule Take 1 capsule by mouth DAILY (6 AM). 90 capsule 3 ? galcanezumab-gnlm 120 mg/mL subcutaneous pen injector (EMGALITY) INJECT 2 SYRINGES SUBCUTANEOUSLY ONE TIME ONLY FOR 1 DOSE. 2 Syringe 0 ? galcanezumab-gnlm 120 mg/mL subcutaneous pen injector (EMGALITY) INJECT 1 SYRINGE SUBCUTANEOUSLY ONCE EVERY MOUTH 1 Syringe 5 ? SUMAtriptan (IMITREX) 100 mg tablet Take 1 tablet by mouth as needed for Migraine Headache (see administration instructions). 9 tablet 11 ? fluticasone/vilanterol (BREO ELLIPTA INHALATION) Inhale as instructed. ? ? ? zonisamide (ZONEGRAN) 50 mg capsule TAKE 1 CAPSULE IN THE MORNING AND 2 CAPSULES AT BEDTIME 270 capsule 3 ? ? SOCIAL HISTORY: Patient is . She quit smoking 6 years ago. No recreational drug use. Reports her alcohol use as never. ? ? PHYSICAL EXAMINATION: No vitals or PE since telemedicine Alert and pleasant, No apparent distress. Easy respirations. Able to speak in complete sentences. Good judgement. Appropriate answers. ? ? Impression: GERD 2)dyspepsia 3)altered bowel habits ? Plan: Change to Amitiza. MIGUEL Monique. ? The patient will be scheduled for an upper endoscopy and colonoscopy, with MAC. Requesting [facility] since her Cardio and Pulm are there. Preparation for the procedures, using GoLytely and Dulcolax as the laxative, have been explained in detail. The risks, benefits, anticipated outcomes and possible complications were mentioned, including including failure to complete the endoscopy and perforation. I explained the procedure in understandable terms and the patient was given printed material concerning the planned procedure. The patient had the opportunity to ask questions concerning the planned procedure. The patient freely consents to the planned procedure. ? Also explained COVID precautions likely to be in place at [facility]. The patient was offered a surgery/procedure. The provider and patient have discussed in detail the risk of exposure to and/or potential harm posed by the COVID-19 virus with having a surgery/procedure at this time versus the risk of delaying the surgery/procedure. It is not possible to know either the risk of delaying the surgery or procedure or chance of getting an infection with perfect accuracy, but a joint decision was made between the patient and the provider to proceed at this time with the scheduled surgery/procedure. ? The patient is encouraged to call with any questions or concerns, or should t here be any change in health status between now and the scheduled procedure. ? Mari Pagan RN GARBAGE COLLECTION SUPERVISOR.JAVA J2EE SOFTWARE ENGINEER
[2019-10-19] VITALS (8 sets, daily range): BP systolic 96–123; BP diastolic 57–81; PULSE 79–97; RESP 16–20; TEMP 36.1–36.8; O2SAT 98–100; BMI 37.5
[2019-10-19] MEDS: Lactated Ringers 1,000 ML 75 ML IV (12:59)
--- NOTE | 2019-10-19 13:30 | IMM_PTH ---
PATIENT: SKY MUSA LOC: EN U#:[id number] AGE/SX: 44/F ROOM: RE10/19/[address]: Dr. Adina Bee MD : 1975 BED: DIS: 10/19/2019 SPEC #: [id number] RECD: 10/20/19 13:30 STATUS: RYDER REQ #: [id number] WES: 10/19/19 13:[address]: Adina Bee DEPT: IMMUNOHISTOCHEMISTRY RECD BY: Meghan Martinez ENTERED: 10/20/19 13:31 SP TYPE: IMMUNO OTHR DR: NICOLAS Cabrera Tissues: A - Stomach, NOS Procedures: H Pylori (initial) PHYSICIAN & INSTITUTION [place] [id number] SPECIMEN INFORMATION: Tissue Source: A - Antrum biopsy Clinical Info: GERD, dyspepsia, altered bowel habits Specimen Number: [id number] CPT code: 01752 METHODOLOGY: Deparaffinized sections of prefer/formalin-fixed tissue or PAP/DQ stained slides are incubated with monoclonal/polyclonal antibodies/oligonucleotide probes. Localization is made via biotin free immunoperoxidase method. Appropriate controls are performed and reacted as expected. Results on target cell population are indicated in the following table: RESULTS: ANTIBODY / CLONE RESULT Block A H Pylori (polyclonal) negative These tests were developed and their performance characteristics determined by [facility]. They may not have been cleared or approved by the U.S. Food and Drug Administration. The FDA has determined that such clearance or approval is not necessary. INTERPRETATION: A. Antrum biopsy: Negative for Helicobacter pylori organisms. AM:bharti 10/21/19
--- NOTE | 2019-10-19 13:33 | COLBX_PTH ---
PATIENT: SKY MUSA LOC: EN U#:[id number] AGE/SX: 44/F ROOM: RE10/19/[address]: Dr. Adina Bee MD : 1975 BED: DIS: 10/19/2019 SPEC #: [id number] RECD: 10/19/19 14:43 STATUS: RYDER REEdmond #: [id number] WES: 10/19/19 13:[address]: Adina Bee DEPT: SURGICAL PATHOLOGY RECD BY: Jude Zhu ENTERED: 10/20/19 13:28 SP TYPE: COLON BX OTHR DR: NICOLAS Cabrera Tissues: A - Gastric mucous membrane B - Gastric mucous membrane C - COLON BIOPSY Procedures: Special Stain Group II Surgery Specimen Level IV Alcian Blue/PAS (control) HEADER OPERATION: Colonoscopy, EGD ([facility] [place]) PRE-OP DIAGNOSIS: GERD, dyspepsia, altered bowel habits TISSUE SUBMITTED: A - Antrum biopsy for histo and H. pylori, B - GE junction biopsy, C - Random colonic biopsy MICROSCOPIC DIAGNOSIS A. Gastric antrum, biopsy: Chronic gastritis. See comment. B. Gastroesophageal junction, biopsy: Junctional mucosa with mild chronic and focal acute inflammation. No evidence of goblet cell metaplasia. Focal changes of reflux. See comment. C. Colon, random biopsy: No pathologic change. AM:bharti 10/21/19 COMMENT A. The results of immunohistochemistry for Helicobacter pylori will be reported separately ([id number]). B. Alcian blue/PAS stain with matched control supports the above diagnosis. MICROSCOPIC DESCRIPTION Slides are reviewed. GROSS DESCRIPTION A - Received in fixative is one container labeled with the patient's name and designated antrum biopsy. The specimen consists of multiple irregular fragments of light lucio soft tissue that in aggregate measure 0.5 x 0.3 x 0.1 cm. The specimen is totally submitted in one cassette. B - Received in fixative is one container labeled with the patient's name and designated GE junction biopsy. The specimen consists of one irregular fragment of light lucio soft tissue that measures 0.5 x 0.3 x 0.1 cm. The specimen is totally submitted in one cassette. C - Received in fixative is one container labeled with the patient's name and designated random colon biopsy. The specimen consists of multiple irregular fragments of light lucio soft tissue that in aggregate measure 1 x 0.5 x 0.1 cm. The specimen is totally submitted in one cassette. / AM:bharti 10/20/19 TC:2 CPT: 09908 x3, 61900
--- NOTE | 2019-10-19 13:46 | OP.CCLET_ITS ---
10/19/2019 Iron Ruiz Re : Upper GI endoscopy procedure for Kayleigh Kinsey Dear Joseph This procedure was performed on Saturday, October 19, 2019. My impressions and recommendations are as follows: Impressions : - Normal first portion of the duodenum and second portion of the duodenum. - Normal stomach. Biopsied. - Z-line irregular. Biopsied. Recommendations : - Discharge patient to home (ambulatory). - Resume previous diet. - Continue present medications. - Await pathology results. - Follow up with Mari Pagan CNP for discussion of pathology results in 1-2 weeks. My findings are described in the full procedure note, which is enclosed. If I can be of further assistance, please feel free to contact me at Doctor phone number(s): , Work: . Sincerely, MD Adina Garcia MD 10/19/2019 1:45:58 PM This report has been signed electronically.
--- NOTE | 2019-10-19 13:46 | OP.EGD_ITS ---
Patient Name: Kayleigh Kinsey Procedure Date: 10/19/2019 12:57 PM Date of : 1975 Age: 44 Procedure: Upper GI endoscopy Indications: Suspected esophageal reflux Providers: Adina Bee MD Referring MD: Iron Ruiz Medicines: See the Anesthesia note for documentation of the administered medications Patient Profile: Refer to note in patient chart for documentation of history and physical. Complications: No immediate complications. Procedure: Pre-Anesthesia Assessment: - see anesthesia note After obtaining informed consent, the endoscope was passed under direct vision. Throughout the procedure, the patient's blood pressure, pulse, and oxygen saturations were monitored continuously. The gastroscope was introduced through the mouth, and advanced to the second part of duodenum. The upper GI endoscopy was accomplished without difficulty. The patient tolerated the procedure well. Scope In: 1:16:05 PM Scope Out: 1:21:59 PM Total Procedure Duration Time 0 hours 5 minutes 54 seconds Findings: The first portion of the duodenum and second portion of the duodenum were normal. The entire examined stomach was normal. because of the patient's complaint, biopsies were taken with a cold forceps for histology of the antrum of the stomach. Estimated blood loss was minimal. The Z-line was minimally irregular. Biopsies were taken with a cold forceps for histology. Verification of patient identification for the specimen was done by the nurse. Estimated blood loss was minimal. Impression: - Normal first portion of the duodenum and second portion of the duodenum. - Normal stomach. Biopsied. - Z-line irregular. Biopsied. Recommendation: - Discharge patient to home (ambulatory). - Resume previous diet. - Continue present medications. - Await pathology results. - Follow up with Mari Pagan CNP for discussion of pathology results in 1-2 weeks. Procedure Code(s): --- Professional --- 92031, Esophagogastroduodenoscopy, flexible, transoral; with biopsy, single or multiple Diagnosis Code(s): --- Professional --- K22.8, Other specified diseases of esophagus CPT copyright 2017 [employer] [place] [employer]. All rights reserved. The codes documented in this report are preliminary and upon cardiology tech review may be revised to meet current compliance requirements. MD Adina Garcia MD 10/19/2019 1:45:58 PM This report has been signed electronically. Number of Addenda: 0 Note Initiated On: 10/19/2019 12:57 PM
--- NOTE | 2019-10-19 13:49 | OP.COLON_ITS ---
Patient Name: Kayleigh Kinsey Procedure Date: 10/19/2019 1:22 PM Date of : 1975 Age: 44 Procedure: Colonoscopy Indications: Change in bowel habits Providers: Adina Bee MD Referring MD: Iron Ruiz Medicines: See the Anesthesia note for documentation of the administered medications Patient Profile: Refer to note in patient chart for documentation of history and physical. Last Colonoscopy: date unknown. Complications: No immediate complications. Procedure: Pre-Anesthesia Assessment: - see anesthesia note After I obtained informed consent, the scope was passed under direct vision. Throughout the procedure, the patient's blood pressure, pulse, and oxygen saturations were monitored continuously. The pediatric colonoscope was introduced through the anus and advanced to the cecum, identified by the appendiceal orifice, ileocecal valve and palpation. The colonoscopy was performed without difficulty. The patient tolerated the procedure well. The quality of the bowel preparation was adequate. Scope In: 1:24:00 PM Scope Withdrawal Time 0 hours 8 minutes 21 seconds Scope Out: 1:39:11 PM Total Procedure Duration Time 0 hours 15 minutes 11 seconds Findings: The perianal and digital rectal examinations were normal. Pertinent negatives include normal sphincter tone. Non-bleeding internal hemorrhoids were found. Biopsies for histology were taken with a cold forceps from the entire colon for evaluation of microscopic colitis. Impression: - Non-bleeding internal hemorrhoids. - Biopsies were taken with a cold forceps from the entire colon for evaluation of microscopic colitis. Recommendation: - Discharge patient to home (ambulatory). - Resume previous diet. - Continue present medications. - Await pathology results. Follow up with Mari Pagan CNP in 1-2 weeks to discuss results. - Repeat colonoscopy as per ACS guidelines for screening for colon cancer. Procedure Code(s): --- Professional --- 36247, Colonoscopy, flexible; with biopsy, single or multiple Diagnosis Code(s): --- Professional --- K64.8, Other hemorrhoids R19.4, Change in bowel habit CPT copyright 2017 [employer] [employer]. All rights reserved. The codes documented in this report are preliminary and upon transactional paralegal review may be revised to meet current compliance requirements. MD Adina Garcia MD 10/19/2019 1:48:47 PM This report has been signed electronically. Number of Addenda: 0 Note Initiated On: 10/19/2019 1:22 PM
--- NOTE | 2019-10-19 13:49 | OP.CCLET_ITS ---
10/19/2019 Iron Ruiz Re : Colonoscopy procedure for Kayleigh Kinsey Dear Joseph This procedure was performed on Saturday, October 19, 2019. My impressions and recommendations are as follows: Impressions : - Non-bleeding internal hemorrhoids. - Biopsies were taken with a cold forceps from the entire colon for evaluation of microscopic colitis. Recommendations : - Discharge patient to home (ambulatory). - Resume previous diet. - Continue present medications. - Await pathology results. Follow up with Mari Pagan CNP in 1-2 weeks to discuss results. - Repeat colonoscopy as per ACS guidelines for screening for colon cancer. My findings are described in the full procedure note, which is enclosed. If I can be of further assistance, please feel free to contact me at Doctor phone number(s): , Work: . Sincerely, MD Adina Garcia MD 10/19/2019 1:48:47 PM This report has been signed electronically.
== END 2019-10-19 14:55 | disposition home or self-care (01) ==
LOC: EN 12:03 → AC 12:03
PROVIDERS: Anesthesiology; PCP Physician Assistant; Referring Provider Physician Assistant; Visit Provider Surgery
PROC: 0DJD8ZZ Inspection of Lower Intestinal Tract, Via Natural or Artificial Opening Endoscopic (ICD-10-PCS; CPT 45378; principal; 2019-10-19 13:25)
DX: K29.50 Unspecified chronic gastritis without bleeding (principal); K21.9 Gastro-esophageal reflux disease without esophagitis; K22.8 Other specified diseases of esophagus; K64.8 Other hemorrhoids; R63.5 Abnormal weight gain; I48.91 Unspecified atrial fibrillation; R56.9 Unspecified convulsions; I10 Essential (primary) hypertension; E78.00 Pure hypercholesterolemia, unspecified; E55.9 Vitamin D deficiency, unspecified; J45.909 Unspecified asthma, uncomplicated; G47.33 Obstructive sleep apnea (adult) (pediatric); F32.9 Major depressive disorder, single episode, unspecified; F41.9 Anxiety disorder, unspecified; Z79.899 Other long term (current) drug therapy; Z87.891 Personal history of nicotine dependence
CPT/HCPCS: 43239; 45380; 87635; 88305; 88313; 88342; C9803; J7120; J2405; U0003

== ENCOUNTER 2021-02-27 13:06 | Outpatient (CLI) | payer MEDICARE, MEDICAID, SELFPAY ==
--- NOTE | 2021-02-27 15:18 | PFTCOMP ---
COMPLETE PULMONARY FUNCTION TEST INTERPRETATION Brief HPI: Patient is a 45 year old female, currently under the care of myself, who presents to [facility] for complete pulmonary function tests secondary to diagnosis of dyspnea. Respiratory therapist reports good effort and reproducible results. Interpretation: Forced expiration spirometry shows a mild large airways obstructive ventilatory defect with an FEV1 of 91% predicted. There is no significant bronchodilator response by strict ATS criteria. Spirograms are of good quality and plateau slowly, indicating slowly emptying areas of the lungs. The respiratory flow volume loop shows decreased expiratory flow rates at all lung volumes consistent with airway obstruction. Lung volumes by body plethysmography show a normal total lung capacity at 5.95 L, 102% predicted. All other lung volumes are within normal limits. Diffusion capacity by carbon monoxide is normal at 81% predicted. The airway resistance is normal. Compared to previous pulmonary function tests from 02/16/2019, there is been a significant reduction in FEV1 by 24%. Impression: Irreversible mild large airways obstructive ventilatory defect with some worsening compared to previous testing.
== END 2021-02-27 23:59 | disposition short-term general hospital (02) ==
LOC: PSN 13:09
PROVIDERS: PCP Physician Assistant; Referring Provider Internal Medicine Critical Care Medicine; Visit Provider Internal Medicine Critical Care Medicine
DX: J45.40 Moderate persistent asthma, uncomplicated (principal)
CPT/HCPCS: 94060; 94726; 94729

== ENCOUNTER → 2022-08-06 | Outpatient (CLI) | payer MEDICARE, MEDICAID, SELFPAY | END | disposition home or self-care (01) | LOC: SL 10:17 | PROVIDERS: PCP Physician Assistant; Visit Provider Nurse Practitioner Acute Care | DX: Z00.00 Encounter for general adult medical examination without abnormal findings (principal) ==

== ENCOUNTER → 2024-09-20 | Outpatient (CLI) | payer MEDICARE, MEDICAID, SELFPAY | END | disposition home or self-care (01) | LOC: PSN 13:02 | PROVIDERS: PCP Clinical Nurse Specialist Adult Health; Referring Provider Nurse Practitioner Family; Visit Provider Nurse Practitioner Family | DX: J45.40 Moderate persistent asthma, uncomplicated (principal) | CPT/HCPCS: 94060; 94726; 94729 ==

== ENCOUNTER → 2024-11-03 | Outpatient (CLI) | payer MEDICARE, MEDICAID, SELFPAY ==
[2024-11-03 11:01] LABS: Hematocrit 36.1 % (37-47); Hemoglobin 12.0 g/dL (12.0-15.0); Immature Granulocytes Count 0.010 X10^3/uL (0.0-0.0); Mean Corp Hgb Conc 33.2 g/dL (32-36); Mean Corpuscular Volume 90.3 fL (81-99); Mean Platelet Vol. 10.6 fl (6.2-12.0); NRBC Flagged by Analyzer 0 % (0-5); Platelet Count 269 K/mm3 (150-450); RBC Distribution Width CV 13.1 % (11.6-14.6); RBC Distribution Width SD 43.0 fl (35.1-43.9); Red Blood Count 4.00 M/mm3 (4.2-5.4); White Blood Count 7.7 K/mm3 (4.4-11.0)
[2024-11-08 10:08] LABS: Ash, White <0.10 kU/L (Class 0); Black Walnut <0.10 kU/L (Class 0); Cat Hair / Dander,Stand <0.10 kU/L (Class 0); Cedar, Mountain <0.10 kU/L (Class 0); Cockroach, American <0.10 kU/L (Class 0); Dog Epithelia <0.10 kU/L (Class 0); Elm, American White <0.10 kU/L (Class 0); Mulberry, White <0.10 kU/L (Class 0); Oak, White <0.10 kU/L (Class 0); Pigweed, Rough <0.10 kU/L (Class 0); Ragweed, Short/Common <0.10 kU/L (Class 0); Sycamore, American <0.10 kU/L (Class 0)
== END | disposition home or self-care (01) ==
PROVIDERS: PCP Clinical Nurse Specialist Adult Health; Referring Provider Nurse Practitioner Family; Visit Provider Nurse Practitioner Family
DX: J45.40 Moderate persistent asthma, uncomplicated (principal); R06.02 Shortness of breath
CPT/HCPCS: 36415; 82785; 85025; 86003